=== PATIENT | male | born 1995 | race Caucasian/White ===

== ENCOUNTER 2023-12-18 15:31 | Outpatient (CLI) | payer OTHER, SELFPAY | END 2023-12-18 15:32 | disposition home or self-care (01) | LOC: AMB 12-23 17:40 | PROVIDERS: Visit Provider Emergency Medicine | DX: E11.649 Type 2 diabetes mellitus with hypoglycemia without coma (principal) | CPT/HCPCS: A0998 ==

== ENCOUNTER 2024-03-05 20:37 | Outpatient (CLI) | payer OTHER, SELFPAY | END 2024-03-05 20:38 | disposition home or self-care (01) | LOC: AMB 03-12 10:15 | PROVIDERS: Visit Provider Family Medicine | DX: E11.649 Type 2 diabetes mellitus with hypoglycemia without coma (principal); R51.9 Headache, unspecified | CPT/HCPCS: A0998 ==

== ENCOUNTER 2024-10-12 11:34 | Inpatient (IN) | payer OTHER, SELFPAY ==
[2024-10-12] VITALS (16 sets, daily range): BP systolic 122–179; BP diastolic 56–105; PULSE 95–109; RESP 15–32; TEMP 36.4–36.7; O2SAT 89–95; BMI 59.5; BMI 62.7
--- NOTE | 2024-10-12 11:56 | ED_ITS ---
HPI - General Adult General Time Seen by Provider: 11:56 Date Seen: 10/12/24 Chief complaint: Shortness of Breath/Dyspnea Stated complaint: Pneumonia, short of breath Time Seen by Provider: 10/12/24 11:55 Source: patient and RN notes reviewed Mode of arrival: ambulatory Limitations: no limitations History of Present Illness HPI narrative: This 29-year-old male is coming into the ER with low blood sugar measuring on his Dexcom for the last couple hours despite eating and drinking at home. He has been sick now starting the day before . He has been coughing, feels like he has been having difficulty breathing with wheezing. He has felt tight. He took 40 mg of prednisone on day and yesterday, had leftover prednisone at home from his underlying asthma and prior treatments. He has been exposed to relatives that have subsequently tested positive for pertussis. He has not documented a temperature but has felt hot at times. He does feel jittery and low but is alert and interactive. He has continued to drink juice in triage with nursing staff. His Dexcom is continuing to measure low through this and while I am talking to him. His insulin pump automatically adjusts with his Dexcom, will turn off and adjust his basal insulin based on his glucose. He does note that his pulse oximeter that he has on an tiffany was 88% earlier today. Related Data Home Medications ?Medication ?Instructions ?Recorded ?Confirmed albuterol sulfate 90 mcg/actuation 2 puff inhalation Q4H PRN wheezing 10/12/24 10/12/24 aerosol inhaler (Ventolin HFA) glucagon 1 mg/0.2 mL subcutaneous 1 mg subcut DAILY PRN 10/12/24 10/12/24 auto-injector (Gvoke HypoPen 1-Pack) insulin lispro 200 unit/mL (3 mL) 0 - 200 unit subcut DAILY 10/12/24 10/12/24 subcutaneous pen (Humalog KwikPen U-200 Insulin) lisdexamfetamine 40 mg capsule 40 mg PO QAM 10/12/24 10/12/24 Allergies Allergy/AdvReac Type Severity Reaction Status Date / Time Penicillins Allergy Severe Anaphylaxis Verified 10/12/24 15:27 metformin Allergy Intermediate Vomiting Verified 10/12/24 15:27 mri contrast Allergy Severe Anaphylaxis Uncoded 10/12/24 15:27 Review of Systems Status of ROS: Reports: 6 or more systems reviewed and unremarkable except as noted in History and below [facility] Medical History (Updated 10/12/24 @ 15:28 by Jayson Muñoz MD) Gastroparesis ?K31.84 - Gastroparesis (ICD-10) Attention deficit disorder ?F98.8 - Other specified behavioral and emotional disorders with onset usuall y occurring in childhood and adolescence (ICD-10) Morbid obesity ?E66.01 - Morbid (severe) obesity due to excess calories (ICD-10) Pneumonia due to respiratory syncytial virus (RSV) ?J12.1 - Respiratory syncytial virus pneumonia (ICD-10) Type 1 diabetes mellitus ?E10.9 - Type 1 diabetes mellitus without complications (ICD-10) Surgical History (Updated 10/12/24 @ 15:17 by Jayson Muñoz MD) H/O ventral hernia repair ?Z98.890 - Other specified postprocedural states (ICD-10) ?Z87.19 - Personal history of other diseases of the digestive system (ICD-10) History of unilateral orchiectomy ?Z90.79 - Acquired absence of other genital organ(s) (ICD-10) History of esophagogastroduodenoscopy (EGD) ?Z98.890 - Other specified postprocedural states (ICD-10) History of laparoscopic appendectomy ?Z90.49 - Acquired absence of other specified parts of digestive tract (ICD- 10) Family History (Updated 10/12/24 @ 15:19 by Jayson Muñoz MD) Mother Asthma Sister Depression Father Coronary artery disease Social History (Updated 10/12/24 @ 15:20 by Jayson Muñoz MD) Narrative: He lives with his mother. He works at [employer]. He vapes nicotine. He occasionally smokes cannabis. He does not drink alcohol. What is your current living situation?: I presently have a place to live Problems where you live: no known problems Problems where you live details: NA In the past 12 months, utilities in danger of being shut off: no In past 12 months, lack of transportation kept you from medical appts, meetings, work, or getting things needed for daily living: no In the past 12 mos, have been you worried that your food would run out before you had money to buy more?: never true In the past 12 mos, the food you bought just didn't last and you didn't have money to buy more?: never true Highest level of school completed/degree received: Associate degree: occupational, technical, vocational program Smoking Status: Current every day smoker Do you use any of these nicotine containing products: Vaping Products How often do you have a drink containing alcohol: never AUDIT-C Alcohol total score: 0 Non-prescribed substance use: marijuana (any form) Non-prescribed substance use details: On occasion Caffeine: Yes How often does anyone, including family, friends and others, physically hurt you : never How often does anyone, including family, friends and others, insult or talk down to you: never How often does anyone, including family, friends and others, threaten you with harm: never How often does anyone, including family, friends and others, scream or curse at you: never service: No Exam Const: Vital Signs, click to edit/add: Vital Signs - 24 hr 10/12/24 11:50 10/12/24 12:01 10/12/24 12:11 Temperature 98.1 F Pulse Rate 105 H Pulse Rate [Pulse Oximeter] 100 Respiratory Rate 28 H Blood Pressure Blood Pressure [Le ft Forearm] 179/105 H Pulse Oximetry 93 90 89 Oxygen Delivery Me thod Room Air 10/12/24 12:14 10/12/24 12:21 10/12/24 12:41 Temperature Pulse Rate 101 H 102 H 106 H Pulse Rate [Pulse Oximeter] Respiratory Rate 28 H 22 Blood Pressure 138/83 132/79 123/75 Blood Pressure [Le ft Forearm] Pulse Oximetry 92 93 92 Oxygen Delivery Me thod 10/12/24 13:01 10/12/24 13:21 10/12/24 13:30 Temperature Pulse Rate 97 101 H Pulse Rate [Pulse Oximeter] Respiratory Rate 15 32 H 21 Blood Pressure 125/88 141/82 H Blood Pressure [Le ft Forearm] Pulse Oximetry 93 95 Oxygen Delivery Me thod This 29-year-old male is alert, interactive, no apparent distress. Sitting upright, conversive. Pupils equal round reactive, sclera clear. Symmetrical facial function. Neck thick but supple. Lungs with no crackles, no wheezing but prolonged expiratory phase and diminished breath sounds. He is not tachypneic. CV regular rate and rhythm, no murmur, normal S1-S2, no S3-S4 heard. Abdomen is obese but soft, nontender, nondistended. Skin visualized without rash. His skin is warm and dry. Documenting provider has reviewed patient's vital signs: yes Course Course ED Course: Interestingly this patient is having hypoglycemia despite 40 mg of prednisone yesterday and the day before. He does have probable underlying upper respiratory infection which could be viral, pertusses or other etiologies such is community-acquired pneumonia. We are going to give him 25 g of IV push glucose with D 50. Will continue to monitor with his Dexcom. Do need to consider malfunction of his insulin pump if he continues to have low registration despite treatment. Will get baseline labs. Will do triple viral swab and also do pertussis PCR. Reevaluation(s) Time of Reevaluation #1: 12:43 Reevaluation #1: Nursing staff reports that patient's Accu-Chek went from 10/19 about 15 minutes is go on his Dexcom and is now down to 45. They have made sure his insulin pump is indeed off. We will initiate D5 normal saline at 75 mL an hour and titrate for Accu-Chek. Time of Reevaluation #2: 13:06 Reevaluation #2: Patient is Dexcom is registering critically low again, sugar is not registering. We do not have D5 normal saline. Will give him another amp of D50, start D10 at 75 mL/hour. I do see patient has come back RSV positive. Consultations Consultation #1: Did speak with hospitalist Dr. Bo. She does accept care of this patient. Will update patient on plan. Time: 13:27 Vital Signs Vital signs: Initial Vital Signs Temperature 98.1 F 10/12/24 11:50 Temperature Source Oral 10/12/24 11:50 Pulse Rate 100 10/12/24 11:50 Respiratory Rate 28 H 10/12/24 11:50 Blood Pressure 179/105 H 10/12/24 11:50 Blood Pressure Mean 129 H 10/12/24 11:50 Blood Pressure Position Sitting 10/12/24 11:50 Pulse Oximetry 93 10/12/24 11:50 Oxygen Delivery Method Room Air 10/12/24 11:50 Vital Signs Temperature 98.1 F 10/12/24 11:50 Pulse Rate 100 10/12/24 11:50 Respiratory Rate 28 H 10/12/24 11:50 Blood Pressure 179/105 H 10/12/24 11:50 Pulse Oximetry 93 10/12/24 11:50 Oxygen Delivery Method Room Air 10/12/24 11:50 Temperature 97.8 F 10/12/24 14:32 Pulse Rate 109 H 10/12/24 14:32 Respiratory Rate 26 H 10/12/24 15:00 Blood Pressure 129/61 10/12/24 14:32 Pulse Oximetry 93 10/12/24 15:00 Oxygen Delivery Method Room Air 10/12/24 15:00 Medications Administered Medications: Generic Name Dose Route Start Last Admin Trade Name Freq PRN Reason Stop Dose Admin Dextrose 500 mls @ 75 mls/hr 10/12/24 13:15 10/12/24 13:27 10 % Dextrose 500 Ml IV 75 mls/hr .[id number] MELINDA Administration Per Protocol Miscellaneous Medication 1 each 10/12/24 15:00 10/12/24 15:57 Insulin Pump (Pt Own) SUBCUT Not Given Q24H MELINDA Discontinued Medications Generic Name Dose Route Start Last Admin Trade Name Freq PRN Reason Stop Dose Admin Dextrose 25 gm 10/12/24 12:01 10/12/24 12:08 Dextrose 50 % Syringe IVP 10/12/24 12:02 25 gm ONCE ONE Administration Dextrose 25 gm 10/12/24 13:04 10/12/24 13:11 Dextrose 50 % Syringe IVP 10/12/24 13:05 25 gm ONCE ONE Administration Potassium Bicarbonate 50 meq 10/12/24 15:30 10/12/24 16:00 Potassium Bicarb 25 Meq Effervescent Tab PO 10/12/24 15:31 50 meq ONCE ONE Administration Medical Decision Making Lab Data Lab results reviewed: Yes I reviewed the patient's lab results Labs: Lab Results 10/12/24 Range/Units 11:53 WBC 11.30 H (4.50-11.00) K/uL RBC 5.71 (4.30-5.90) m/uL Hgb 14.6 (13.5-17.5) gm/dL Hct 48.2 (37.0-53.0) % MCV 84 (80-100) fL MCH 26 (26-34) pg MCHC 30 L (32-36) gm/dL RDW Coeff of Andre 15.1 (11.5-15.5) % Plt Count 360 (140-440) K/uL Neut % (Auto) 58.0 (42.0-72.0) % Lymph % (Auto) 28.5 (20-44) % [place] % (Auto) 11.6 H (0.0-11.0) % Eos % (Auto) 1.2 (0.0-7.0) % Baso % (Auto) 0.4 (0.0-3.0) % Neut # (Auto) 6.60 (1.7-7.0) K/uL Lymph # (Auto) 3.20 H (0.90-2.90) K/uL [place] # (Auto) 1.30 H (0.00-0.90) K/UL Eos # (Auto) 0.10 (0.00-0.50) K/uL Baso # (Auto) 0.00 (0.00-0.30) K/uL Abs Immat Gran (auto) 0.00 (0.00-0.30) K/uL Imm/Tot Granulo (auto) 0.3 % VBG pH 7.387 (7.32-7.43) VBG pCO2 51 H (40-50) mmHG VBG pO2 43.3 (25-47) mmHG VBG HCO3 31 H (21-28) mmol/L Sodium 141 (135-149) mmol/L Potassium 3.1 L (3.6-5.1) mmol/L Chloride 101 (96-114) mmol/L Carbon Dioxide 30 (20-32) mmol/L Anion Gap 10 (7-15) mEq/L BUN 16 (5-24) mg/dL Creatinine 0.7 (0.5-1.5) mg/dL Estimated Creat Clear 146.89 Estimated GFR 129 ml/min Glucose 25 L* (60-115) mg/dL Lactate 2.3 H (0.5-1.9) mmol/L Calcium 9.0 (8.4-10.6) mg/dL Total Bilirubin 0.5 (0.1-1.5) mg/dL AST 25 (12-35) U/L ALT 30 (4-50) U/L Alkaline Phosphatase 84 (40-150) U/L C-Reactive Protein 1.7 H (0.5-1.0) mg/dL Total Protein 8.0 (6.0-8.3) g/dL Albumin 4.4 (3.3-5.0) g/dL SARS-CoV-2 (PCR) Negative SARS-CoV-2 (Negative) Influenza Type A (PCR) Negative PCR FLU A (Negative) Influenza Type B (PCR) Negative PCR FLU B (Negative) RSV (PCR) POSITIVE PCR RSV A (Negative) Imaging Data Chest x-ray: Attestation: I have reviewed the pertinent imaging results. My impression: I do not see any acute pathology on my preliminary review of the portable chest x-ray. Radiologist's impression: [facility] Patient ID:?[id number] Site Patient ID:?[id number]. Site :?[id number] Study:?XRay-Chest 1V-10/12/2024 12:38:04 PM Ordering Physician:Hermilo Mcwilliams Final Report: Indication: Cough Technique: Chest 1 view Comparison: None Findings/Impression: Cardiovascular and mediastinum: Heart size and vasculature are normal in caliber and appearance. Lungs and pleural space: No pleural effusion or pneumothorax. Bronchial wall thickening with some interstitial indistinctness surrounding the bronchi suspicious for a viral/interstitial pneumonia. Bones and soft tissues: No acute findings. Dictated by Yaw Arvizu MD @ 10/12/2024 12:55:37 PM (Electronic Signature) Critical Care Time Critical Care Time Critical Care Time: Yes Attestation: The patient required my highest level preparedness to intervene emergently and I personally spent this critical care time directly and personally managing the patient. This critical care time included: Obtaining a history; Examining the patient; Pulse oximetry; Ordering and reviewing of studies; Arranging urgent treatment with development of a management plan; Evaluation of patients response to treatment; Frequent reassessment discussions with other providers. This critical care time was performed to assess and manage the high probability of imminent life-threatening deterioration that could result in multiorgan failure. It was exclusive of separate billable procedures and treating other patients and teaching time. Total Critical Care Time in Minutes: 45 Discharge Plan Discharge Clinical Impression: Diabetes mellitus with hypoglycemia Respiratory syncytial virus (RSV) infection Qualifiers: RSV infection type: acute bronchiolitis Qualified Code(s): J21.0 - Acute bronchiolitis due to respiratory syncytial virus Asthma Qualifiers: Asthma severity: unspecified severity Asthma persistence: unspecified Asthma complication type: unspecified Qualified Code(s): J45.909 - Unspecified asthma, uncomplicated Patient Disposition: Admitted As Observation
--- NOTE | 2024-10-12 12:01 | CRLHL7_ITS ---
For Patients: As a result of the Century Cures Act, medical imaging exams and procedure reports are released immediately into your electronic medical record. You may view this report before your referring provider. If you have questions, please contact your health care provider. Indication: Cough Technique: Chest 1 view Comparison: None Findings/Impression: Cardiovascular and mediastinum: Heart size and vasculature are normal in caliber and appearance. Lungs and pleural space: No pleural effusion or pneumothorax. Bronchial wall thickening with some interstitial indistinctness surrounding the bronchi suspicious for a viral/interstitial pneumonia. Bones and soft tissues: No acute findings. Dictated by Yaw Arvizu MD @ 10/12/2024 12:55:37 PM (Electronically Signed)
[2024-10-12] MEDS: DEXTROSE 50 % SYRINGE IVP ×2 (12:08→13:11)
[2024-10-12 12:15] LABS: HCO3 VBG 31 mmol/L (21-28); PCO2 VBG 51 mmHG (40-50); PO2 VBG 43.3 mmHG (25-47); pH VBG 7.387 (7.32-7.43)
[2024-10-12 12:17] LABS: Lactate* 2.3 mmol/L (0.5-1.9)
[2024-10-12 12:20] LABS: Basophils Percent Auto 0.4 % (0.0-3.0); Eosinophils Percent Auto 1.2 % (0.0-7.0); Hematocrit 48.2 % (37.0-53.0); Hemoglobin* 14.6 gm/dL (13.5-17.5); Immature Granulocytes Pct Auto 0.3 %; Lymphocytes Percent Auto 28.5 % (20-44); Mean Corpuscular HGB Conc 30 gm/dL (32-36); Mean Corpuscular Hemoglobin 26 pg (26-34); Mean Corpuscular Volume 84 fL (80-100); Monocytes Percent Auto 11.6 % (0.0-11.0); Platelet Count* 360 K/uL (140-440); RDW Coefficient of Variation % 15.1 % (11.5-15.5); Red Blood Count 5.71 m/uL (4.30-5.90)
[2024-10-12 12:29] LABS: Albumin* 4.4 g/dL (3.3-5.0); Chloride* 101 mmol/L (96-114)
[2024-10-12 12:30] LABS: Potassium* 3.1 mmol/L (3.6-5.1); Sodium* 141 mmol/L (135-149)
[2024-10-12 12:32] LABS: Bilirubin Total* 0.5 mg/dL (0.1-1.5); Creatinine* 0.7 mg/dL (0.5-1.5); Est. Creatinine Clearance* 146.89; Estimated Glomerular Filt Rate 129 ml/min
[2024-10-12 12:33] LABS: Alanine Aminotransferase* 30 U/L (4-50); Alkaline Phosphatase* 84 U/L (40-150); Anion Gap 10 mEq/L (7-15); Aspartate Amino Transferase* 25 U/L (12-35); Blood Urea Nitrogen* 16 mg/dL (5-24); Carbon Dioxide* 30 mmol/L (20-32)
--- OUTSIDE RECORDS SUMMARY | 2024-10-12 12:33 | XMS_ITS | Clinical Summary ---
Author Organization [facility] Address [place], [place] [address] Care Team Providers Care Mobile Product Manager Name Role Phone Chance Saxena MD Primary Care Provider SchempfRom MD Unavailable [phone] Allergies Active Allergy Reactions Criticality Noted Date Comments Iodinated Contrast Media Anaphylaxis,Hives,S hortness Of Breath High 09/21/2021 Metformin GI Upset 01/03/2017 Diarrhea and abdominal pain Penicillin G Hives 07/31/2011 Diabetic ketoacidosis Penicillins Hives 03/27/2010 Medications Cetirizine (ZYRTEC) 10 mg Cap Take by mouth. 0 03/27/20 10 Active albuterol (PROVENTIL) 0.083 % neb solutionIndicatio ns:Exacerbation of asthma, unspecified asthma severity, unspecified whether persistent 3 mL every 4 hours if needed. 60 Neb 11 09/05/20 17 Active empty container (SHARPS CONTAINER) miscIndications:D iabetes mellitus type 1, controlled, without complications (HC) As directed 1 Each each time if needed (discarding sharps). 1 Container 3 08/11/20 20 Active alcohol swabsIndications: Diabetes mellitus type 1, controlled, without complications (HC) For home use. 100 Each 6 08/11/20 20 Active Accu-Chek Guide Glucose Meter USE TO CHECK GLUCOSE 4 TIMES DAILY 08/12/20 20 Active lancetsIndication s:Diabetes mellitus type 1, controlled, without complications (HC) Dispense item covered by pt ins. E10.65 IDDM type I, uncontrolled - Test 4 times/day. Reason: Insulin Pump 100 Each 6 03/27/20 Active acetone, urine, test stripIndications: Diabetes mellitus type 1, controlled, without complications (HC) Individually wrapped ketone test strips. For personal use. 1 Bottle 3 03/27/20 Active Transparent Dressings (Tegaderm First Aid Style) 2 12/15 X 2 12/11 bndgIndications:D iabetes mellitus type 1, controlled, without complications (HC) Apply topically to affected area(s). For use with insulin pump infusion set. 30 Each 3 07/08/20 Active blood-glucose meterIndications: Diabetes mellitus type 1, controlled, without complications (HC) Test blood sugar as directed 1 Each 08/03/20 Active lancetsIndication s:Diabetes mellitus type 1, controlled, without complications (HC) Use to test blood sugar as directed 100 Each 3 08/03/20 Active blood sugar diagnostic (Blood Glucose Test) stripIndications: Diabetes mellitus type 1, controlled, without complications (HC) Test blood sugar 4 times daily 100 Each 3 08/03/20 Active insulin pump controller [facility] Insulin Pump: avoxtronic 670G Insulin pump settings: Basal rates: 9939-0617 @ 4.45 units/hr 4296-3076 @ 5.50 units/hr 0474-8500 @ 5 units/hr Wqkjcxd-ni-svmo ratio: 5525-0340 of 1:5 0673-9180 of 1:8 9393-4322 of 1:5 9789-2068 of 1:7 Insulin Sensitivity Factor: 1:15> 140 Blood glucose targets: All day targets of 80-140 Active insulin time: 3 hours Active NebulizerIndicati ons:Asthma, unspecified asthma severity, unspecified whether complicated, unspecified whether persistent Nebulizer, disposable neb kit x 4, reuseable neb kit x 1, mask x 1, filters x 1. Frequency of use: daily; Medication: duoneb Length of need: 99 months 1 Each 02/15/20 22 Active hydrOXYzine HCL (ATARAX) 50 mg tabletIndications :Anxiety TAKE 1 TABLET BY MOUTH EVERY 6 HOURS NEEDED FOR ANXIETY 90 Tablet 10/03/20 23 Active Dexcom G7 Sensor for continuous blood glucose monitor (CGM)Indications: Diabetes mellitus type 1, controlled, without complications (HC) To be used to read blood sugars, follow replacer directions. 9 Each 3 10/14/19 24 Active Gum Jklpht-Vbezvl-CJk l-Alcohol (Mastisol Liquid Adhesive) liqdIndications:D iabetes mellitus type 1, controlled, without complications (HC) As directed. 59 mL 1 10/14/19 24 Active glucagon (Gvoke HypoPen 1-Pack) 1 mg/0.2 mL atInIndications:D iabetes mellitus type 1, controlled, without complications (HC) Inject 1 mg subcutaneous each time if needed (For severe hypoglycemic event where patient cannot eat or drink). Household family members should be instructed on how to use this 2 Each 3 02/07/20 24 Active Semglee,insulin glarg-yfgn,Pen 100 unit/mL (3 mL) penIndications:Ty pe 1 diabetes mellitus with diabetic neuropathy (HC) Inject 90 units subcutaneous every 24 hours. For pump failure 30 mL 1 04/16/20 24 Active insulin lispro, U-200, (HumaLOG KwikPen Insulin) 200 unit/mL (3 mL) penIndications:Ty pe 1 diabetes mellitus with diabetic neuropathy (HC) Inject up to 200 units daily 60 mL 5 04/16/20 24 Active albuterol HFA (PRO-AIR; VENTOLIN; PROVENTIL) 90 mcg/actuation inhalerIndication s:Exacerbation of asthma, unspecified asthma severity, unspecified whether persistent Inhale 2 Puffs by mouth every 4 hours if needed for Wheezing. Ventolin only 1 Each 11 06/05/20 24 Active lisdexamfetamine (VYVANSE) 40 mg capsuleIndication s:Attention deficit disorder Take 1 Capsule (40 mg) by mouth once daily. 30 Capsule 11/10/19 25 Active lisdexamfetamine (Vyvanse) 40 mg capsuleIndication s:Attention or concentration deficit Take 1 Capsule (40 mg) by mouth once daily in the morning. 31 Capsule 10/10/19 25 Active lisdexamfetamine (Vyvanse) 40 mg capsuleIndication s:Attention or concentration deficit Take 1 Capsule (40 mg) by mouth once daily in the morning. 31 Capsule 09/10/20 24 Active Active Problems Problem Noted Date Diagnosed Date Gastroparesis 10/07/2021 Attention deficit disorder (ADD) without hyperac tivity 06/02/2021 Morbid obesity with BMI of 45.0-49.9, adult 12/09 Environmental allergies 03/15/2016 Celiac disease 03/15/2016 Uncomplicated asthma 03/15/2016 insomnia 03/14/2016 Type 1 diabetes mellitus with diabetic neuropath y 03/14/2016 depression 03/14/2016 Resolved Problems Problem Noted Date Diagnosed Date Resolved Date Severe persistent asthma with exacerbation 11/19/2022 05/31/2023 Diabetic ketoacidosis withou t coma associated with type 1 diabetes mellitus 02/05/2022 05/31/2023 Severe episode of recurrent major depressive disorder, with psychotic features 10/07/20212021 Encounters Date Type Department Care Team Description 09/09/2024 Refill [facility] [address] [place] [address] Chance Saxena MD Refill Request (Vyvanse/) from Last 3 Months Immunizations Name Administration Dates Next Due COVID-19 vaccine (Moderna 100mcg/0.5mL) HENRIQUE TOPETE 09/15/2021,02/19/2021,01/20/2021 HPV 9 (Gardasil 9) 03/30/2018,08/10/2017, 017 Hepatitis A (Peds) 12/28/2007,02/28/2007 Inactivated Polio Vaccine 06/14/2001 Influenza, IIV4 10/07/2021, 9,08/10/2017,10/06 MENINGOCOCCAL VACCINE 2 VIAL 2MO-55YO (MENVEO) 11/16/2016 MMR 11/16/2016,06/14/2001 Pneumococcal Poly,23-Valent (Pneumovax) 03/30/2018 Pneumococcal conj 13-Valent (Prevnar 13) 10/21/2021 Pneumococcal conj 7-Valent (Prevnar 7) 0 Tdap 03/26/2009 Varicella Vaccine 03/26/2009,06/22/2000 Family History Medical History Relation Name Comments Depression Father Heart attack Father x 2 Suicidality Father early 50s Alcoholism Maternal Grandfather Cancer Maternal Grandfather kidney, bladder, prostate, liver Depression Maternal Grandfather Other Maternal Grandmother colitis , hypotension Asthma Mother Cancer Mother cervical Heart Disease Paternal Grandfather Depression Sister x 2 Relation Name Status Comments Father Maternal Grandfather Maternal Grandmother Mother Alive Paternal Grandfather Paternal Grandmother Alive Sister x 2 Alive Social History Tobacco Use Types Packs/Day Years Used Date Smoking Tobacco: Former Cigarettes 0.5 3 Passive Smoke Exposure: Past Smokeless Tobacco: Never Tobacco Cessation:Counseling Given: No Alcohol Use Standard Drinks/Week Comments Not Currently 0 (1 standard drink = 0.6 oz pur e alcohol) PHQ-2 Answer Date Recorded PHQ-2 TOTAL SCORE 0 08/16/2023 Social Connections Answer Date Recorded Frequency of Communication with Friends and Fami ly Not on file 03/24/2023 Financial Resource Strain Answer Date R ecorded Difficulty of Paying Living Expenses 3 03/22/2022 Difficulty of Paying Living Expenses Not on file 03/22/2022 Food Insecurity Answer Date Recorded Worried About Running Out of Food in the Last Ye ar 1 03/22/2022 Transportation Needs Answer Date Record ed Lack of Transportation (Medical) 1 03/22/2022 Housing Stability Answer Date Recorded Unable to Pay for Housing in the Last Year 1 03/22/2022 Sex and Gender Information Value Date Recorded Sex Assigned at Not on file Legal Sex Male 7:55 AM DIRECTOR OF INTELLIGENCE Gender Identity Male 08/11/2020 2:27 PM DIRECTOR OF INTELLIGENCE Sexual Orientation Bisexual 08/11/2020 2: 27 PM DIRECTOR OF INTELLIGENCE 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 Not on file Not on file Obstetrics History Last Filed Vital Signs Vital Sign Reading Time Taken Comments Blood Pressure 128/88 04/16/2024 8:01 AM CDT Pulse 100 04/16/2024 8:01 AM CDT Temperature 36.8 C (98.2 F) 09/09/2023 5:13 PM DIRECTOR OF INTELLIGENCE Respiratory Rate 20 09/09/2023 6:30 PM DIRECTOR OF INTELLIGENCE Oxygen Saturation 94% 09/09/2023 6:30 PM DIRECTOR OF INTELLIGENCE Inhaled Oxygen Concentration - - Weight 183.4 kg (404 lb 6.4 oz) 04/16/2024 8:01 AM CDT Height 170.2 cm (5' 7) 09/09/2023 10:4 1 AM DIRECTOR OF INTELLIGENCE Body Mass Index 63.34 09/09/2023 10:41 AM DIRECTOR OF INTELLIGENCE Plan of Treatment Upcoming Encounters Date Type Department Care Team (Late st Contact Info) Description 11/01/2024 8:00 AM DIRECTOR OF INTELLIGENCE Office Visit [facility] [address] [place] [address] Rom Sommers MD [address] [place] [id number] Health Maintenance Due Date Last Done Comments HIV for age 15-65 2011 Hepatitis C screening for ag e 18-79 2014 Hepatitis B series for Diabe hillary (1 of 3 - 19+ 3-dose series) 2015 Tetanus booster 03/26/2019 03/26/2009 COVID-19 vaccine series ( season) 2024 09/15/2021, 02/19/2021, 01/20/2021 Influenza for age 9-49 06/10/2024 , 2019, 08/10/2017, Additional history exists Depression screening for age 12+ 08/18/2024 08/18/2023, 08/18/2023, 08/16/2023, Additional history exists BMI (ht and wt on same day) for age 18+ 08/30/2024 08/30/2023, 08/18/2023, 05/25/2023, Additional history exists Pneumococcal series for age 6-49 (3 of 3 - PCV20 or PCV21) 2046 10/21/2021, 03/30/2018, 06/22/2000 Tdap Completed 03/26/2009 Medical Devices Implanted Type Area Scrub Tech Device Identifier Shelf Expiration Date Model / Serial / Lot Mesh Ventral [address]in [address] - [id number] Implanted:Qty: 1 on 09/09/2023 by Duran Triana MD at [facility] N/A: Abdomen [employer] 03/06/2025 [id number] / / [id number] Insurance [facility] Advance Directives * Full Code (Latest Code Status on File) Date Activated Date Inactivated Comments 09/09/2023 9:59 AM 09/09/2023 8:35 PM Question Answer Comments Code Status Discussion: Reviewed Preferences * Full Code Date Activated Date Inactivated Comments 10/15/2021 9:45 AM 10/15/2021 2:13 PM Question Answer Comments Code Status Discussion: Unable to Assess Preferences, Provider to review later * Full Code Date Activated Date Inactivated Comments 10/15/2021 9:45 AM 10/15/2021 9:45 AM Question Answer Comments Code Status Discussion: Unable to Assess Preferences, Provider to review later Care Teams Mobile Product Manager Relationship Specialty [place] [address] [place] [address] PCP - General Family Practice 03/22/22 Rom Sommers MD [address] [facility] [address] [place] [address] Endocrinology 02/06/24
--- OUTSIDE RECORDS SUMMARY | 2024-10-12 12:33 | XMS_ITS | Clinical Summary ---
Author Organization [employer] Address [address], [place] [address] Care Team Providers Care Bat Person Name Role Phone Yung Rodriguez MD Primary Care Provider [phone] Source Comments You are receiving this document as you are listed as the primary care provider,follow-up provider, or the patient has been referred to you for consultation.This is in compliance with the Medicare andWhite Hospitalcaid EHR Incentive Program,which states Providers who transition their patient to another setting of careor provider of care or refers their patient to another provider of care shouldprovide summary care record for each transition of care or referral. Press-sense Allergies Active Allergy Reactions Criticality Noted Date Comments Metformin Gastrointestinal 01/03/2017 Diarrhea and abdominal pain Penicillins Hives,Other, see comments High 6 PN: Reporting medication caused DKA, states was placed in hospital for week and a 1/2. Medications Medication Sig Dispensed Refills Start Date End Date Status buPROPion (AKA WELLBUTRIN XL) 300 MG 24 hour release tablet Take 300 mg by mouth daily. Active ibuprofen (AKA MOTRIN) 600 MG tablet Take 1 Tab by mouth every 6 hours as needed for Pain. 30 Tab 0 08/19/2014 Active Additional Information Patient not taking.Reported on 03/29/2018 blood glucose test strip Use 1 strip to test 4 times daily (before meals and bedtime). 400 strip 4 05/20/2016 Active glucagon, human recombinant, (GLUCAGON,HUMAN RECOMBINANT) 1 MG injection Inject 1 mg subcutaneously once for 1 dose. 1 each 11 05/20/2016 Active ALBUTEROL IN Active insulin glargine (LANTUS SOLOSTAR) 100 UNIT/ML penIndications:Diabe hillary Mellitus Inject 90 Units subcutaneously daily. For pump failure Indications: Diabetes Mellitus 15 mL 6 03/29/2018 Active insulin pen needle (BD PEN NEEDLE BLAS U/F) 32G X 4 MMIndications:Type 1 diabetes mellitus with diabetic polyneuropathy (HRC) Inject 1 Each subcutaneously as needed. 100 Each 03/29/2018 Active insulin syringe-needle U-100 1ml 31g x 15/64Indications:Ty pe 1 diabetes mellitus with diabetic polyneuropathy (HRC) Inject 1 Each subcutaneously five times a day. 200 Each 4 03/29/2018 Active insulin aspart (NOVOLOG) 100 UNIT/ML injection (vial) Total daily dose 250 unitsVia insulin pump. 5 u/ carb overnight, 7 u/ carb during day, plus correction 2 u/ 50 > 150 250 mL 4 04/05/2018 Active insulin aspart (NOVOLOG) 100 UNIT/ML injection (vial)Indications:Di abetes Mellitus 5-7 units/carb meals and snacks plus scale up to 100 units daily when off insulin pump. Indications: Diabetes Mellitus 30 mL 04/05/2018 Active Active Problems Problem Noted Date Diagnosed Date Type 1 diabetes mellitus with diabetic polyneuro barry 05/20/2016 Insulin pump status 05/20/2016 Celiac disease 05/20/2016 Elevated BP 05/20/2016 Morbid obesity 05/20/2016 Social History Tobacco Use Types Packs/Day Years Used Date Smoking Tobacco: Former Smokeless Tobacco: Former Quit: 06/14/2016 Alcohol Use Standard Drinks/Week Comments No 0 (1 standard drink = 0.6 oz pur e alcohol) Sex and Gender Information Value Date Recorded Sex Assigned at Not on file Gender Identity Not on file Sexual Orientation Not on file Last Filed Vital Signs Vital Sign Reading Time Taken Comments Blood Pressure 126/86 03/29/2018 9:32 AM CDT Pulse 76 03/29/2018 9:32 AM CDT Temperature 36.7 C (98 F) 08/19/2014 4:40 PM PRESS OFFICER Respiratory Rate 16 08/19/2014 4:40 PM PRESS OFFICER Oxygen Saturation 98% 11/09/2016 3:05 PM PRESS OFFICER Inhaled Oxygen Concentration - - Weight 129.7 kg (286 lb) 03/29/2018 9:32 AM CDT Height 170.2 cm (5' 7) 03/29/2018 9:32 AM CDT Body Mass Index 44.79 03/29/2018 9:32 AM CDT Plan of Treatment Health Maintenance Due Date Last Done Comments Diabetes: Eye Exam 1996 Hep C Screening (Preventive Services) 1996 IPV (Polio) (2 of 3 - 4-dose series) 07/12/2001 06/14/2001 HIV Screening (Preventive Services) 2012 Adult Preventive Visit 2014 HepB (1) 2015 Diabetes: Foot Exam 05/20/2017 05/20/2016 (Completed ) Diabetes: HGBA1C 09/28/2018 03/29/2018, , 05/20/2016 DTaP/Tdap/Td (3 - Tdap) 03/26/2019 03/26/2009, 06/14 Diabetes: Creatinine 03/29/2019 03/29/2018, 05/20/20 16 Diabetes: Urine Microalbumin 03/29/2019 03/29/2018, 05/20/2016 Pneumococcal (2 - PCV) 03/30/2019 03/30/2018, 1999 Diabetes: Lipid Panel 03/29/2023 03/29/2018, 016 COVID-19 Vaccine ( season) 2024 01/20/2021 Influenza (#1) 2024 2019, 10/2016, 10/06/2016, Additional history exists Zoster/Shingles (1 of 2) 2046 HepA Completed 12/28/2007, 02/28/2007 MCV4 Aged Out 11/16/2016, 03/26/2009 No lo nger eligible based on patient's age to complete this topic HPV Vaccine Completed 03/30/2018, 10/2016, 11/16/2016 Hib Aged Out No longer eligi ble based on patient's age to complete this topic Procedures Procedure Name Priority Date/Time Associated Diagnosis Comments ALBUMIN/CREAT RATIO Routine 03/29/2018 1 1:01 AM CDT Type 1 diabetes mellitus with diabetic polyneuropathy (HRC) CREATININE / GFR Routine 03/29/2018 10:3 1 AM CDT Type 1 diabetes mellitus with diabetic polyneuropathy (HRC) LIPID PANEL & DIRECT LDL (IF NEEDED) Routine 03/29/2018 10:31 AM CDT Type 1 diabetes mellitus with diabetic polyneuropathy (HRC) POCT GLYCOSYLATED HEMOGLOBIN (HGB A1C) Routine 03/29/2018 9:47 AM CDT Type 1 diabetes mellitus with diabetic polyneuropathy (HRC) from Last 3 Months or Most Recently Relevant to Health Maintenance Results * Microalb/Creat Ratio (03/29/2018 11:01 AM CDT) Microalbumin Urine 16.1 mg/L PN SOFT U Creat Random 236 mg/dL PN SOFT Microalbumin/Crea tinine Ratio 6.8 0.0 - 30.0 PN SOFT Urine specimen (specimen) 03/29/2018 11:01 AM CDT 03/29/2018 11:01 AM CDT Narrative PN SOFT - 03/29/2018 11:43 AM CDT Performed at [facility], [address] [place] [address] CLIA number [id number] Brii Nguyen PA-C LAB_1 PN SOFT [address] [place] [address] * (ABNORMAL) Lipid Panel and Direct LDL(If Needed) (03/29/2018 10:31 AM CDT) Cholesterol 139 0 - 199 mg/dL PN SOFT Triglycerides 68 4 - 149 mg/dL PN SOFT HDL Cholesterol 29(L) >39 mg/dL PN SOFT Cholesterol/HDL Ratio Screen 4.8 PN SOFT LDL Calculated 96 19 - 130 mg/dL PN SOFT Non HDL Chol, Calc 110 0 - 159 mg/dL PN SOFT Hours Fasting 14.0 PN SOFT 03/29/2018 10:3 1 AM CDT 03/29/2018 10:31 AM CDT Narrative PN SOFT - 03/29/2018 11:11 AM CDT Performed at [facility], [address] [place], [place] [address] CLIA number [id number] Brii Nguyen PA-C LAB_1 Performing Organization Address [facility] Co de Phone Number PN SOFT [address] [place] [address] * (ABNORMAL) Creatinine / GFR (03/29/2018 10:31 AM CDT) Creatinine Serum 0.70(L) 0.73 - 1.18 mg/dL PN SOFT Est GFR Am >60 >60 mL/min/1.7 3m2 PN SOFT Est GFR Non-Afr Am >60 >60 mL/min/1.7 3m2 PN SOFT Comment: Normal>60, moderate decrease 30 - 59, severe decrease 15 - 29, renal failure <15 mL/min/1.73 m2 NOTE: Choose the eGFR result above appropriate for the race of the patient. 03/29/2018 10:3 1 AM CDT 03/29/2018 10:31 AM CDT Narrative PN SOFT - 03/29/2018 11:11 AM CDT Performed at [facility], [address] [place] [id number] CLIA number [id number] Brii Nguyen PA-C LAB_1 Performing Organization Address [facility] de Phone Number PN SOFT [address] [place] [address] * (ABNORMAL) POCT glycosylated hemoglobin (Hb A1C) (03/29/2018 9:47 AM CDT) Hemoglobin A1C, POC 9.1(A) 4 - 5.6 % PN POCT Cartridge Lot# [id number] PN POCT Blood specimen (specimen) 03/29/2018 9:47 AM CDT Brii Nguyen PA-C PN POINT OF CARE T ESTS Performing Organization Address [facility] Co de Phone Number PN POCT from Last 3 Months or Most Recently Relevant to Health Maintenance Care Teams Bat Person Relationship Specialty Start Date End Date Yung Rodriguez MD [place] [address] [facility] [address] [place] [address] PCP - General Pediatric Medicine 08/19/14
--- OUTSIDE RECORDS SUMMARY | 2024-10-12 12:33 | XMS_ITS | Encounter Summary ---
Author Organization [facility] Address [address] [facility] [place] [address] Care Team Providers Care Senior Manufacturing Supervisor Name Role Phone Yung Rodriguez MD Primary Care Provider Shanti Jimenes Primary Care Provider Chance Johnson MD Primary Care Provider [phone] Encounter Details Date Type Department Care Team ([facility] st Contact Info) Description 08/05/2011 Telephone [facility] Behavioral Health Intake [address] [place] [address] Generic, Behavioral Intake, Social History Tobacco Use Types Packs/Day Years Used Date Smoking Tobacco: Never Alcohol Use Standard Drinks/Week Comments No 0 (1 standard drink = 0.6 oz pur e alcohol) Sex and Gender Information Value Date Recorded Sex Assigned at Not on file Legal Sex Male 3:41 AM SUPERVISOR GROWER Gender Identity Not on file Sexual Orientation Not on file documented as of this encounter Miscellaneous Notes * Telephone Encounter - Epifanio Bridges - 08/11/2011 4:01 PM CDT Message copied by EPIFANIO BRIDGES on TueAug 11, 2011 4:01 PM ------ Message from: PRABHU FELDMAN Created: TueAug 11, 2011 1:25 PM Rambo will start this coming 08/16 and be followed by Dr. Sameera Garcia. Dr. Gooden is covering and will do admission orders. Chloe @ [facility] auth'd Pt through 09/07 and will call Nelson Motley (ther.) for review that day. Auth# [id number] * Telephone Encounter - Miriam Lovelace - 08/05/2011 9:39 AM CDT PER EPIC,PT REF TO ADOL PART FROM 4A. REF MADE. documented in this encounter Plan of Treatment Not on file documented as of this encounter Visit Diagnoses Not on filedocumented in this encounter Additional Health Concerns Infection Onset Date Last Indicated Resolved Time Rule Out COVID-19 07/15/2021 07/15/2021 07/15/2021 12:51 PM CDT Rule Out COVID-19 02/14/2022 02/14/2022 02/14/2022 11:02 PM CDT documented as of this encounter Care Teams Senior Manufacturing Supervisor Relationship Specialty Start Date End Date Yung Rodriguez MD PCP - General Pediatrics 07/31/11 10/03/16 Shanti Magdaleno PCP - General 10/04/16 08/03/17 Chance Saxena MD [facility] [id number] [place] [address] PCP - General Family Practice 08/04/17 documented as of this encounter
--- OUTSIDE RECORDS SUMMARY | 2024-10-12 12:33 | XMS_ITS | Clinical Summary ---
Author Organization [facility] Address [address] [address] [place] [address] Care Team Providers Care Dewer Name Role Phone Provider, No Attributed RESOURCE Unavailable Unavailable Social History Tobacco Use Types Packs/Day Years Used Date Smoking Tobacco: Never Assessed Sex and Gender Information Value Date Recorded Sex Assigned at Not on file Legal Sex Male 12:33 PM SCABBLER Gender Identity Not on file Sexual Orientation Not on file Plan of Treatment Not on file Care Teams Dewer Relationship Specialty Start Date End Date Provider, No Attributed, RESOURCE [address] PCP - Attributed Provider 08/10/16
--- OUTSIDE RECORDS SUMMARY | 2024-10-12 12:33 | XMS_ITS | Clinical Summary ---
Author Organization [place] Address [address] [facility] [place] [address] Care Team Providers Care Linotype Machinist Name Role Phone Chance Saxena MD Primary Care Provider [phone] Allergies Active Allergy Reactions Criticality Noted Date Comments Contrast Dye Shortness Of Breath,Hives,Swelling High 03/25/[address] contrast dye and after scan when pt went home, their eyes and throat became swollen. Metformin GI Disturbance 01/03/2017 Other reaction(s): GI Upset Diarrhea and abdominal pain Diarrhea and abdominal pain Penicillins Hives,Other (See Comments) High 07/31/2011 Diabetic ketoacidosis it puts me into Diabetic Shock PN: Reporting medication caused DKA, states was placed in hospital for week and a 1/2. Diabetic ketoacidosis Medications albuterol (PROAIR HFA/PROVENTIL HFA/VENTOLIN HFA) 108 (90 Base) MCG/ACT inhaler Inhale 1-2 puffs into the lungs every 4 hours as needed for shortness of breath / dyspnea 1 Inhaler 0 Active lisdexamfetamine (VYVANSE) 40 MG capsule Take 40 mg by mouth every morning Active Continuous Blood Gluc Sensor (DEXCOM G6 SENSOR) MISC Change every 10 days. Active benzonatate (TESSALON) 100 MG capsuleIndicatio ns:Moderate asthma with exacerbation, unspecified whether persistent Take 1 capsule (100 mg) by mouth 3 times daily as needed for cough 15 capsule 2 Active Insulin Lispro (HUMALOG KWIK PEN) 200 UNIT/ML soln Use to fill insulin pump. Inject up to 200 units daily. 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 Provider to review Anxiety 10/22/2011 ADHD (attention deficit hyperactivity disorder) 10/22/2011 Type 1 diabetes mellitus 08/01/2011 Overview (02/13/2015): Do you wish to do the replacement in the background? yes Resolved Problems Problem Noted Date Diagnosed Date Resolved Date Tachycardia 02/15/2022 07/12/2023 Hypertension, unspecified type 02/15/2022 07/12/20[address] stairs, initial encounter 03/21/2021 07/12/2023 Diabetic ketoacidosis withou t coma associated with type 1 diabetes mellitus 03/21/2021 07/12/2023 Suicidal ideation 03/21/2019 07/12/2023 Pneumonia 10/04/2016 07/12/2023 Chronic maxillary sinusitis 04/25/2013 07/12/2023 Deliberate self-cutting 10/22/201112/2022 Immunizations Name Administration Dates Next Due Influenza Vaccine >6 months,madina, PF 10/06/2016 Family History Medical History Relation Comments C.A.D. Father [place] Coronary Artery Disease Father Depression Father dad's side of th e family Hypertension Father Breast Cancer Maternal Aunt Hypertension Mother Alzheimer Disease Other great aunts an d uncles on mom's side of the family Diabetes Paternal Uncle 1 Diabetes Paternal Uncle 2 Relation Status Comments Father Maternal Aunt Mother Other Paternal Uncle 1 Paternal Uncle 2 Social History Tobacco Use Types Packs/Day Years Used Date Smoking Tobacco: Every Day Cigarettes Other Smokeless Tobacco: Never Tobacco Cessation:Ready to Q uit: Not Asked; Counseling Given: Not Answered Comments:About 6 cigarettes a week Alcohol Use Standard Drinks/Week Comments Yes 0 (1 standard drink = 0.6 oz pur e alcohol) vodka- occ Adolescent Education Answer Date Record ed Getting School Help Needed Not on file 07/12 Sex and Gender Information Value Date Recorded Sex Assigned at Not on file Legal Sex Male 3:41 AM COLLAR SETTER OVERLOCK Gender Identity Not on file Sexual Orientation Not on file Last Filed Vital Signs Vital Sign Reading Time Taken Comments Blood Pressure 114/85 05/30/2024 2:50 PM CDT Pulse 109 05/30/2024 2:50 PM CDT Temperature 37.1 C (98.7 F) 07/12/2023 1:25 PM CDT Respiratory Rate 20 05/30/2024 2:49 PM CDT Oxygen Saturation 95% 05/30/2024 5:55 PM CDT Inhaled Oxygen Concentration - - Weight 179 kg (394 lb 9.6 oz) 07/12/2023 2:09 AM CDT Height 167.6 cm (5' 6) 07/12/2023 2:09 AM CDT Body Mass Index 63.69 07/12/2023 2:09 AM CDT Plan of Treatment Health Maintenance Due Date Last Done Comments ANNUAL REVIEW OF HM ORDERS 1996 ASTHMA ACTION PLAN 1996 ASTHMA CONTROL TEST 1996 DEPRESSION ACTION PLAN 1996 DIABETIC FOOT EXAM 1996 EYE EXAM 1996 MICROALBUMIN 1996 PHQ-9 1996 YEARLY PREVENTIVE VISIT 1999 HIV SCREENING 2011 LIPID 10/23/2012 10/23/2011, 12/13/2009 HEPATITIS C SCREENING 2014 HEPATITIS B IMMUNIZATION (1 of 3 - 19+ 3-dose series) 2015 DTAP/TDAP/TD IMMUNIZATION (3 - Td or Tdap) 03/26/2019 03/26/2009, 06/14/2001 A1C 09/21/2021 03/22/2021, 03/10, 03/21/2019, Additional history exists ADVANCE CARE PLANNING 03/21/2024 03/21/2019 COVID-19 Vaccine ( season) 2024 09/15/2021, 02/19/2021, 01/20/2021 INFLUENZA VACCINE (#1) 2024 , 2019, 08/10/2017, Additional history exists BMP 05/30/2025 05/30/2024, 11/2022, 03/25/2022, Additional history exists Pneumococcal Vaccine: Pediatrics (0 to 5 Years) and At-Risk Patients (6 to 49 Years) (3 of 3 - PCV20 or PCV21) 2046 10/21/2021, 03/30/2018, 06/22/2000 RSV VACCINE (1 - 1-dose 75+ series) 2071 MENINGITIS IMMUNIZATION Aged Out 11/16/2016, 03/26 No longer eligible based on patient's age to complete this topic HPV IMMUNIZATION Completed 03/30/2018, 10/2016, 11/16/2016 TSH W/FREE T4 REFLEX Discontinued 03/21/2019, 10/23/2011, 12/13/2009 RSV MONOCLONAL ANTIBODY Aged Out No l onger eligible based on patient's age to complete this topic Medical Devices Implanted Type Area Search Specialist Device Identifier Shelf Expiration Date Model / Serial / Lot Staple Reload [place] 45mm 3.5mm White - [id number] Implanted:Qty : 1 on 12/16/2016 Metallic Hardware/Anc hor N/A: Abdomen [employer] 10/09/2020 [id number] / / [id number] Procedures Procedure Name Priority Date/Time Associated Diagnosis Comments BASIC METABOLIC PANEL STAT 05/30/2024 2:55 PM CDT HEMOGLOBIN A1C Routine 03/22/2021 1:44 AM CDT Diabetic ketoacidosis without coma associated with type 1 diabetes mellitus (H) TSH WITH FREE T4 REFLEX Timed 03/21/2019 7:04 AM CDT Continuous auditory hallucinations LIPID PROFILE Timed 10/23/2011 8:51 AM COLLAR SETTER OVERLOCK from Last 3 Months or Most Recently Relevant to Health Maintenance Results * (ABNORMAL) Basic metabolic panel (05/30/2024 2:55 PM CDT) [facility] Sodium 137 135 - 145 mmol/L 05/30/2024 3:32 PM CDT LABORATORY Potassium 4.3 3.4 - 5.3 mmol/L 05/30/2024 3:32 PM CDT LABORATORY Chloride 101 98 - 107 mmol/L 05/30/2024 3:32 PM CDT LABORATORY Carbon Dioxide (CO2) 26 22 - 29 mmol/L 05/30/2024 3:32 PM CDT LABORATORY Anion Gap 10 7 - 15 mmol/L 05/30/2024 3:32 PM CDT LABORATORY Urea Nitrogen 8.7 6.0 - 20.0 mg/dL 05/30/2024 3:32 PM CDT LABORATORY Creatinine 0.80 0.67 - 1.17 mg/dL 05/30/2024 3:32 PM CDT LABORATORY GFR Estimate >90 >60 mL/min/1.7 3m2 05/30/2024 3:32 PM CDT LAB[facility]ORY Comment:eGFR calculated usin g 2020 CKD-EPI equation. Calcium 9.3 8.8 - 10.4 mg/dL 05/30/2024 3:32 PM CDT LAB[facility]ORY Comment:Reference intervals for this test were updated on 04/24/2024 to reflect our healthy population more accurately. There may be differences in the flagging of prior results with similar values performed with this method. Those prior results can be interpreted in the context of the updated reference intervals. Glucose 39(LL) 70 - 99 mg/dL 05/30/2024 3:32 PM CDT LABORATORY Blood BLOOD SPECIMEN / Unknown Venipuncture / Unknown 05/30/2024 2:55 PM CDT 05/30/2024 2:58 PM CDT us Manuel Escobedo MD LAB - BLOOD ORDERABLES Final Res ult [facility] Acute [facility] Lab [address], [address] [place] [address], [facility] [phone] * (ABNORMAL) Hemoglobin A1c (03/22/2021 1:44 AM CDT) Hemoglobin A1C 6.1(H) 0 - 5.6 % 03/22/2021 2:26 AM CDT [facility] Comment: Normal <5.7% Prediabetes 5.7-6.4% Diabetes 6.5% or higher - adopted from ADA consensus guidelines. Blood 03/22/2021 1:44 AM CDT 03/22/2021 1:45 AM CDT us Andrés Escoto MD LAB - BLOOD ORDERABLES Final Result Performing Organization Address City/[facility]/ZIP Co de Phone Number [facility] [address] [place] [address], [facility] [phone] * TSH with free T4 reflex (03/21/2019 7:04 AM CDT) TSH 1.51 0.40 - 4.00 mU/L 03/21/2019 7:48 AM CDT [facility] Blood specimen (specimen) 03/21/2019 7:04 AM CDT 03/21/2019 7:05 AM CDT us Simi Lynn APRN STEAM TABLE WORKER LAB - BLOOD ORDER CHRIS Final Result [facility] [address] [place] [address] * (ABNORMAL) Lipid profile (10/23/2011 8:51 AM COLLAR SETTER OVERLOCK) Cholesterol 186 0 - 200 mg/dL [facility] Comment: LDL Cholesterol is the primary guide to therapy. The NCEP recommends further evaluation of: patients with cholesterol greater than 200 mg/dL if additional risk factors are present, cholesterol greater than 240 mg/dL, triglycerides greater than 150 mg/dL, or HDL less than 40 mg/dL. Triglycerides 201(H) 0 - 150 mg/dL [facility] HDL Cholesterol 40 40 - 110 mg/dL [facility] LDL Cholesterol Calculated 106 0 - 129 mg/dL [facility] Comment: LDL Cholesterol is the primary guide to therapy: LDL-cholesterol goal in high risk patients is <100 mg/dL and in very high risk patients is <70 mg/dL. VLDL-Cholesterol 40(H) 0 - 30 mg/dL [facility] Cholesterol/HDL Ratio 5.0 0.0 - 5.0 [facility] Blood specimen (specimen) 10/23/2011 8:51 AM COLLAR SETTER OVERLOCK 10/23/2011 9:02 AM COLLAR SETTER OVERLOCK Donna Hill MD LAB - BLOOD ORDERABLES Final Result [facility] [address] [phone], [facility] from Last 3 Months or Most Recently Relevant to Health Maintenance Insurance [employer] Advance Directives For more information, please contact: [phone] * Full Code (Latest Code Status on File) Date Activated Date Inactivated Comments 07/12/2023 12:45 AM 07/12/2023 3:58 PM All basic a nd advanced life-sustaining interventions are performed as appropriate Question Answer Comments Code status determined by: Discussion with patie nt/ legal decision maker * Full Code Date Activated Date Inactivated Comments 02/15/2022 2:35 AM 02/18/2022 2:06 PM All basic and advanced life-sustaining interventions are performed as appropriate Question Answer Comments Code status determined by: Discussion with patie nt/ legal decision maker * Full Code Date Activated Date Inactivated Comments 03/22/2021 2:09 PM 06/05/2021 2:44 PM Question Answer Comments Code status determined by: Discussion with patie nt/ legal decision maker * Full Code Date Activated Date Inactivated Comments 03/22/2021 1:16 AM 03/22/2021 2:09 PM All basic an d advanced life-sustaining interventions are performed as appropriate Question Answer Comments Code status determined by: Discussion with patie nt/ legal decision maker * Full Code Date Activated Date Inactivated Comments 03/21/2019 5:13 AM 03/28/2019 3:18 PM Question Answer Comments Code status determined by: Discussion with patie nt/legal decision maker Care Teams Linotype Machinist Relationship Specialty Start Date End Date Chance Saxena MD [facility] [id number] [place] [id number] PCP - General Family Practice 08/04/17
--- OUTSIDE RECORDS SUMMARY | 2024-10-12 12:33 | XMS_ITS | Encounter Summary ---
Author Organization [place] Address [address] [facility] [place] [address] Care Team Providers Care Parts Interpreter Name Role Phone Chance Saxena MD Primary Care Provider [phone] Encounter Details Date Type Department Care Team (Late st Contact Info) Description 07/15/2021 Documentation Only INTERFACED REPORT Unknown, Provider Social History Tobacco Use Types Packs/Day Years Used Date Smoking Tobacco: Some Days Cigarettes Smokeless Tobacco: Never Comments:About 6 cigarettes a week Alcohol Use Standard Drinks/Week Comments Yes 0 (1 standard drink = 0.6 oz pur e alcohol) vodka- occ Sex and Gender Information Value Date Recorded Sex Assigned at Not on file Legal Sex Male 3:41 AM TOGGLER Gender Identity Not on file Sexual Orientation Not on file COVID-19 Exposure Response Date Recorded In the last month, have you been in contact with someone who was confirmed or suspected to have Coronavirus / COVID-19? No / Unsure 07/15/2021 10:18 AM CDT documented as of this encounter Plan of Treatment Not on file documented as of this encounter Visit Diagnoses Not on filedocumented in this encounter Additional Health Concerns Infection Onset Date Last Indicated Resolved Time Rule Out COVID-19 07/15/2021 07/15/2021 07/15/2021 12:51 PM CDT Rule Out COVID-19 02/14/2022 02/14/2022 02/14/2022 11:02 PM CDT documented as of this encounter Care Teams Parts Interpreter Relationship Specialty Start Date End Date Chance Saxena MD [facility] [address] [place] [address] PCP - General Family Practice 08/04/17 documented as of this encounter
--- OUTSIDE RECORDS SUMMARY | 2024-10-12 12:33 | XMS_ITS | Encounter Summary ---
Author Organization [place] Address [address] [facility] [place] [address] Care Team Providers Care Guest Specialist Name Role Phone Yung Rodriguez MD Primary Care Provider Shanti Jimenes Primary Care Provider Chance Johnson MD Primary Care Provider [phone] Encounter Details Date Type Department Care Team (Late st Contact Info) Description 10/05/2011 Office Visit [facility] Reji Fam, DO [facility] [address] [place] [address] [address] Social History Tobacco Use Types Packs/Day Years Used Date Smoking Tobacco: Never Alcohol Use Standard Drinks/Week Comments No 0 (1 standard drink = 0.6 oz pur e alcohol) Sex and Gender Information Value Date Recorded Sex Assigned at Not on file Legal Sex Male 3:41 AM RN CASE MANAGER Gender Identity Not on file Sexual Orientation Not on file documented as of this encounter Progress Notes * Reji Fam MD - 10/05/2011 2:40 PM CST [facility] Psychiatric Progress Note Date of visit: 10/05/11 Impression: This is a 16 year old male with hx depression, anxiety, and ADHD. Struggles also with IDDM which has not been stable. Patient continuing to struggle with mood and behavior. DIagnoses: Tow I: MDD, recurrent, severe without psychosis. Generalized Anxiety Disorder. ADHD, combined type. Tow II: Deferred. Tow III: IDDM Tow IV: moderate psychosocial stressors Tow V: Global Assessment of Functionin Plan: Reviewed record; recommend cont current medication regimen as prescribed by Dr. Powell. This includes Zoloft which is being titrated upwards to target depression and anxiety; appears to be tolerating thus far. Strattera was started; will cont at present dose and expect further titration upwards as tolerated to target anxiety and ADHD, as well as helping with mood. Monitor patient for any signsof activation or worsening of mood. Cont to assess for safety. Strongly encourage patient to work on diabetic issues (eg. diet, etc) which has been an issue for some time. Family therapy recommended. Attestation: Patient has been seen and evaluated by me, REJI FAM MD Total amount of time: 20 minutes Coordination of care/counselin minutes Interim History: The patient's care was discussed with the treatment team and chart notes were reviewed. Patient reports he is feeling better. Struggles with remaining in groups which he states was an issue in school before day treatment. He feels his mood is ok. Denies SI. States he still has anxiety. Denies sleep or appetite issues (yolanda after being off of Adderall). He admits he does not watch what he eats and was asking what effect taking Zoloft and drinking alcohol would have today in group. Some inappropriate behaviors in program last week; more disruptive. No s/e from meds. The Review of Systems is negative other than noted in the HPI Medications: Zoloft (dose cannot be verified - patient reports now taking 150 mg qd?), Strattera 10 mg qd. Allergies: Allergies Allergen Reactions ??? Pcn (Penicillin G Ammonium) Psychiatric Examination: There were no vitals filed for this visit. Weight is 0 lbs 0 oz There is no height or weight on file to calculate BMI. Appearance: awake, alert and adequately groomed Attitude: cooperative Eye Contact: fair Mood: anxious Affect: appropriate and in normal range Speech: clear, coherent Psychomotor Behavior: no evidence of tardive dyskinesia, dystonia, or tics Thought Process: logical and linear Associations: no loose associations Thought Content: no evidence of suicidal ideation or homicidal ideation Insight: limited Judgment: limited Oriented to: time, person, and place Attention Span and Concentration: intact Recent and Remote Memory: intact Language: Able to name objects Fund of Knowledge: appropriate Muscle Strength and Tone: normal Gait and Station: Normal Labs: No results found for this or any previous visit (from the past 24 hour(s)). CASE MANAGER documented in this encounter Plan of Treatment Not on file documented as of this encounter Visit Diagnoses Not on filedocumented in this encounter Additional Health Concerns Infection Onset Date Last Indicated Resolved Time Rule Out COVID-19 07/15/2021 07/15/2021 07/15/2021 12:51 PM CDT Rule Out COVID-19 02/14/2022 02/14/2022 02/14/2022 11:02 PM CDT documented as of this encounter Care Teams Guest Specialist Relationship Specialty Start Date End Date Yung Rodriguez MD PCP - General Pediatrics 07/31/11 10/03/16 Shanti Magdaleno PCP - General 10/04/16 08/03/17 Chance Saxena MD [facility] [id number] [place] [id number] PCP - General Family Practice 08/04/17 documented as of this encounter
--- OUTSIDE RECORDS SUMMARY | 2024-10-12 12:33 | XMS_ITS | Referral Summary ---
Author Organization [place] Address [address] [place] [address] Care Team Providers Care Grapple Crew Leader Name Role Phone Chance Saxena MD Primary Care Provider [phone] Allergies Active Allergy Reactions Criticality Noted Date [...] Administration Dates Next Due Influenza Vaccine >6 months,quad, PF 10/06/2016 Social History Tobacco Use Types Packs/Day Years [...] on file Legal Sex Male 3:41 AM CONSUMER CREDIT COUNSELOR Gender Identity Not on file Sexual Orientation [...] 07/12/2023 2:09 AM CDT Plan of Treatment Not on file Medical Devices Implanted Type Area Mass Communications Instructor Device Identifier Shelf Expiration Date Model / Serial / Lot Staple Reload [place] 45mm 3.5mm White - [id number] Implanted:Qty : 1 on 12/16/2016 Metallic Hardware/Anc hor N/A: Abdomen [employer] [place] 10/09/2020 [id number] / / [id number] Procedures Procedure Name Priority Date/Time Associated Diagnosis Comments BASIC METABOLIC PANEL STAT 05/30/2024 2:55 PM CDT HEMOGLOBIN A1C Routine 03/22/2021 1:44 AM CDT Diabetic ketoacidosis without coma associated with type 1 diabetes mellitus (H) TSH WITH FREE T4 REFLEX Timed 03/21/2019 7:04 AM CDT Continuous auditory hallucinations LIPID PROFILE Timed 10/23/2011 8:51 AM CONSUMER CREDIT COUNSELOR from Last 3 Months or Most Recently Relevant to Health Maintenance Results * (ABNORMAL) Basic metabolic panel (05/30/2024 2:55 PM CDT) Sodium 137 135 - 145 mmol/L 05/30/2024 [...] 3:32 PM CDT LAB[facility]ATORY Comment:eGFR calculated usin 2020 CKD-EPI equation. Calcium 9.3 8.8 - [...] LAB - BLOOD ORDERABLES Final Res ult LABORATORY [facility] Acute Care Lab [address], [address] [place] [address], [facility] [phone] * (ABNORMAL) Hemoglobin A1c (03/22/2021 1:44 AM CDT) Hemoglobin A1C 6.1(H) 0 - 5.6 % 03/22/2021 2:26 AM CDT [facility] Comment: Normal <5.7% Prediabetes 5.7-6.4% Diabetes 6.5% or higher - adopted from ADA consensus guidelines. Blood 03/22/2021 1:44 AM CDT 03/22/2021 1:45 AM CDT us Andrés Escoto MD LAB - BLOOD ORDERABLES Final Result Performing Organization Address City/[facility]/ZIP Co de Phone Number [facility] [address] [place] [address], [facility] [phone] * TSH with free T4 reflex (03/21/2019 7:04 AM CDT) TSH 1.51 0.40 - 4.00 mU/L 03/21/2019 7:48 AM CDT [facility] Blood specimen (specimen) 03/21/2019 7:04 AM CDT 03/21/2019 7:05 AM CDT us Simi Lynn APRN, CNP LAB - BLOOD ORDER CHRIS Final Result [facility] [address] [place] [address] * (ABNORMAL) Lipid profile (10/23/2011 8:51 AM CONSUMER CREDIT COUNSELOR) Cholesterol 186 0 - 200 mg/dL [facility] Comment: LDL Cholesterol is the primary guide to therapy. The NCEP recommends further evaluation of: patients with cholesterol greater than 200 mg/dL if additional risk factors are present, cholesterol greater than 240 mg/dL, triglycerides greater than 150 mg/dL, or HDL less than 40 mg/dL. Triglycerides 201(H) 0 - 150 mg/dL [facility] HDL Cholesterol 40 40 - 110 mg/dL [facility] LDL Cholesterol Calculated 106 0 - 129 mg/dL [facility] Comment: LDL Cholesterol is the primary guide to therapy: LDL-cholesterol goal in high risk patients is <100 mg/dL and in very high risk patients is <70 mg/dL. VLDL-Cholesterol 40(H) 0 - 30 mg/dL [facility] Cholesterol/HDL Ratio 5.0 0.0 - 5.0 [facility] Blood specimen (specimen) 10/23/2011 8:51 AM CONSUMER CREDIT COUNSELOR 10/23/2011 9:02 AM CONSUMER CREDIT COUNSELOR Donna Hill MD LAB - BLOOD ORDERABLES Final Result Performing Organization Address City/State/[facility] Co de Phone Number [facility] [address] [id number] from Last 3 Months or Most Recently Relevant to Health Maintenance Insurance [employer] Advance Directives For more information, please contact: [phone] * Full Code (Latest Code Status on [...] with patie nt/legal decision maker Care Teams Grapple Crew Leader Relationship Specialty Start Date End Date Chance Saxena MD [facility] [id number] [place] [id number] PCP - General Family Practice 08/04/17
--- OUTSIDE RECORDS SUMMARY | 2024-10-12 12:33 | XMS_ITS | Encounter Summary ---
Author Organization [facility] Address [address] [place] [address] Care Team Providers Care Supervisor [employer] Name Role Phone Chance Saxena MD Primary Care Provider [phone] Reason for Visit * Reason Onset Date Comments MH/CD Inpatient 03/20/2019 Encounter Details Date Type Department Care Team ([facility] Contact Info) Description 03/20/2019 Telephone [facility] Intake [address] [place] [id number] Generic, Behavioral Intake, MH/CD Inpatient Social History Tobacco Use Types Packs/Day Years Used Date Smoking Tobacco: Some Days Cigarettes Smokeless Tobacco: Never Comments:About 6 cigarettes a week Alcohol Use Standard Drinks/Week Comments Yes 0 (1 standard drink = 0.6 oz pur e alcohol) vodka- occ Sex and Gender Information Value Date Recorded Sex Assigned at Not on file Legal Sex Male 3:41 AM [employer] STE[employer] Gender Identity Not on file Sexual Orientation Not on file documented as of this encounter Miscellaneous Notes * Telephone Encounter - Ale Wolfe - 03/21/2019 12:30 AM CDT A: Pt has insulin pump. Spoke with MD who reported pump will be removed and pt should be fine with regular insulin once admitted IP. Pt will have Endocrinology consult and they will decide insulin schedule. MD also reported pt received long-acting insulin overnight and will need regular insulin around breakfast time. call box wirer provider requesting ketoacidosis labs and wants blood sugar to be rechecked. Needs to be under 300 before accepted to the unit. ED notified at 0108. Glucose @ [phone] Creatinine 0.57 R: call box wirer notified of lab results and accepts. 4A/Ricky. Unit notified at 0307. ED notifiedat 0311. documented in this encounter Plan of Treatment Not on file documented as of this encounter Visit Diagnoses Not on filedocumented in this encounter Additional Health Concerns Infection Onset Date Last Indicated Resolved Time Rule Out COVID-19 07/15/2021 07/15/2021 07/15/2021 12:51 PM CDT Rule Out COVID-19 02/14/2022 02/14/2022 02/14/2022 11:02 PM CDT documented as of this encounter Care Teams Supervisor [employer] Relationship Specialty Start Date End Date Chance Saxena MD [facility] [address] [place] [address] PCP - General Family Practice 08/04/17 documented as of this encounter
--- OUTSIDE RECORDS SUMMARY | 2024-10-12 12:33 | XMS_ITS | Encounter Summary ---
Author Organization [facility] Address [address], [place] [address] Care Team Providers Care Transfer Station Attendant Name Role Phone Yung Rodriguez MD Primary Care Provider [phone] Encounter Details Date Type Department Care Team (Late st Contact Info) Description 08/19/2014 Consent for Procedure/Treatme nt [facility] INFORMED CONSENT RECORD Social History Tobacco Use Types Packs/Day Years Used Date Smoking Tobacco: Never Assessed Sex and Gender Information Value Date Recorded Sex Assigned at Not on file Gender Identity Not on file Sexual Orientation Not on file documented as of this encounter Plan of Treatment Not on file documented as of this encounter Visit Diagnoses Not on filedocumented in this encounter Care Teams Transfer Station Attendant Relationship Specialty Start Date End Date Yung Rodriguez MD [facility] [address] [place] [address] PCP - General Pediatric Medicine 08/19/14 documented as of this encounter
[2024-10-12 12:36] LABS: C Reactive Protein* 1.7 mg/dL (0.5-1.0)
[2024-10-12 12:41] LABS: Glucose* 25 mg/dL (60-115); Slide Review Reflex No
[2024-10-12 12:48] LABS: PCR FLU A Negative PCR FLU A (Negative); PCR FLU B Negative PCR FLU B (Negative); PCR RSV POSITIVE PCR RSV (Negative); SARS PCR* Negative SARS-CoV-2 (Negative)
[2024-10-12] MEDS: 10 % DEXTROSE 500 ML 500 ML 75 ML IV (13:27)
--- NOTE | 2024-10-12 15:03 | P.IMHP_ITS ---
Hospitalist- H&P: HPI History of Present Illness Date Seen: 10/12/24 Chief complaint: Pneumonia Narrative: Rambo Rodriguez is a 29 year old male with type 1 diabetes, obesity and RSV admitted to the hospital with difficulties managing his blood sugar. He 1st became ill about 5 days ago with upper respiratory illness symptoms. He has a history of asthma and 2 days ago started taking prednisone 40 mg daily. He has tested positive for RSV. His chest x-ray suggests a pattern of viral pneumonia. He was more short of breath early on in that is getting better. Yesterday he was having problems with hyperglycemia with blood sugars in the 300 range. Today is blood sugars have been low, down to 25 when he presented the emergency room. He did report some shakiness but no loss of consciousness. He has been eating relatively normally though he reports his appetite is less than usual with his RSV infection He manages his type 1 diabetes with an insulin pump and a continuous glucose monitor. He reports they communicate with each other. The pump is programmed to adjust to his high and low blood sugar readings. This is a new problem for him in the last month. He has a history of hypoglycemia. He works with his print production associate, Dr Rom Sommers, to manage this. He reports his last episode of loss of consciousness was about 3-4 months ago but he has had multiple episodes in his life. In the emergency department he was given an amp of D50, food, D10 IV infusion. Despite this his blood sugar remains low at 48. Currently asymptomatic. Pump has been taken off. He was continued to get his basal rate in the emergency department it appears. Will continue to feed him and closely monitor blood sugars Review of Systems Narrative: Review of systems unremarkable except for his respiratory illness and jitteriness with hypoglycemia. [facility] Medical History (Updated 10/12/24 @ 15:28 by Jayson Muñoz MD) Gastroparesis ?K31.84 - Gastroparesis (ICD-10) Attention deficit disorder ?F98.8 - Other specified behavioral and emotional disorders with onset usually occurring in childhood and adolescence (ICD-10) Morbid obesity ?E66.01 - Morbid (severe) obesity due to excess calories (ICD-10) Pneumonia due to respiratory syncytial virus (RSV) ?J12.1 - Respiratory syncytial virus pneumonia (ICD-10) Type 1 diabetes mellitus ?E10.9 - Type 1 diabetes mellitus without complications (ICD-10) Surgical History (Updated 10/12/24 @ 15:17 by Jayson Muñoz MD) H/O ventral hernia repair ?Z98.890 - Other specified postprocedural states (ICD-10) ?Z87.19 - Personal history of other diseases of the digestive system (ICD-10) History of unilateral orchiectomy ?Z90.79 - Acquired absence of other genital organ(s) (ICD-10) History of esophagogastroduodenoscopy (EGD) ?Z98.890 - Other specified postprocedural states (ICD-10) History of laparoscopic appendectomy ?Z90.49 - Acquired absence of other specified parts of digestive tract (ICD- 10) Family History (Updated 10/12/24 @ 15:19 by Jayson Muñoz MD) Mother Asthma Sister Depression Father Coronary artery disease Social History (Updated 10/12/24 @ 15:20 by Jayson Muñoz MD) Narrative: He lives with his mother. He works at [employer]. He vapes nicotine. He occasionally smokes cannabis. He does not drink alcohol. Meds Home Medications and Allergies Home Medications ?Medication ?Instructions ?Recorded ?Confirmed ?Type albuterol sulfate 90 mcg/actuation 2 puff inhalation Q4H PRN wheezing 10/12/24 10/12/24 History aerosol inhaler (Ventolin HFA) glucagon 1 mg/0.2 mL subcutaneous 1 mg subcut DAILY PRN 10/12/24 10/12/24 History auto-injector (Gvoke HypoPen 1-Pack) insulin lispro 200 unit/mL (3 mL) 0 - 200 unit subcut DAILY 10/12/24 10/12/24 History subcutaneous pen (Humalog KwikPen U-200 Insulin) lisdexamfetamine 40 mg capsule 40 mg PO QAM 10/12/24 10/12/24 History Allergies Allergy/AdvReac Type Severity Reaction Status Date / Time Penicillins Allergy Severe Anaphylaxis Verified 10/12/24 15:27 metformin Allergy Intermediate Vomiting Verified 10/12/24 15:27 mri contrast Allergy Severe Anaphylaxis Uncoded 10/12/24 15:27 Exam Narrative: Exam Narrative: He is alert and appears in no distress. Breathing is unlabored. He is oriented to his circumstances and gives detailed history of recent events. Head is without trauma. Eyes normal. Oropharynx with small airway. Neck is supple without mass or adenopathy. Respirations with a rare crackle or wheeze. Fairly good air exchange all lung klein. Cardiovascular: S1, S2, regular rate and rhythm abdomen: Bowel sounds active. Abdomen is soft without tenderness. Extremities with mild edema. Intact capillary refill and intact pulses. Const: Vital Signs, click to edit/add: Vital Signs - 24 hr 10/12/24 11:50 10/12/24 12:01 10/12/24 12:11 Temperature 98.1 F Pulse Rate 105 H Pulse Rate [Pulse Oximeter] 100 Respiratory Rate 28 H Blood Pressure Blood Pressure [Le ft Forearm] 179/105 H Pulse Oximetry 93 90 89 Oxygen Delivery Me thod Room Air 10/12/24 12:14 10/12/24 12:21 10/12/24 12:41 Temperature Pulse Rate 101 H 102 H 106 H Pulse Rate [Pulse Oximeter] Respiratory Rate 28 H 22 Blood Pressure 138/83 132/79 123/75 Blood Pressure [Le ft Forearm] Pulse Oximetry 92 93 92 Oxygen Delivery Me thod 10/12/24 13:01 10/12/24 13:21 10/12/24 13:30 Temperature Pulse Rate 97 101 H Pulse Rate [Pulse Oximeter] Respiratory Rate 15 32 H 21 Blood Pressure 125/88 141/82 H Blood Pressure [Le ft Forearm] Pulse Oximetry 93 95 Oxygen Delivery Me thod Documenting provider has reviewed patient's vital signs: yes Hospitalist - H&P: Result Labs Labs: Short CBC 10/12/24 Range/Units 11:53 WBC 11.30 H (4.50-11.00) K/uL Hgb 14.6 (13.5-17.5) gm/dL Hct 48.2 (37.0-53.0) % Plt Count 360 (140-440) K/uL BMP 10/12/24 11:53 Sodium 141 Potassium 3.1 L Chloride 101 Carbon Dioxide 30 BUN 16 Creatinine 0.7 Glucose 25 L* Calcium 9.0 Liver Function 10/12/24 Range/Units 11:53 Total Bilirubin 0.5 (0.1-1.5) mg/dL AST 25 (12-35) U/L ALT 30 (4-50) U/L Alkaline Phosphatase 84 (40-150) U/L Albumin 4.4 (3.3-5.0) g/dL Imaging Chest x-ray: Radiologist's impression: Indication: Cough Technique: Chest 1 view Comparison: None Findings/Impression: Cardiovascular and mediastinum: Heart size and vasculature are normal in caliber and appearance. Lungs and pleural space: No pleural effusion or pneumothorax. Bronchial wall thickening with some interstitial indistinctness surrounding the bronchi suspicious for a viral/interstitial pneumonia. Bones and soft tissues: No acute findings. Assessment and Plan Assessment and plan (1) Diabetes mellitus with hypoglycemia: Problem comment: 29-year-old male with type 1 diabetes now having fairly significant hypoglycemia. The cause for this appears unclear. He is appropriately using his continues glucose monitor and insulin pump. He is eating though less than usual. Elevated sugars yesterday probably due to prednisone but he even made a correction for that with his pump. It is possible that there is some variable absorption of insulin contributing to this. Has follow-up with his endocrin ologist in 2-3 weeks and this should be reviewed at that time. Status: Acute Assessment and Plan: In the hospital we will closely monitor blood sugars. I have asked him to put his pump back on. I would like to see what happens with his blood sugars with his pump working appropriately. (2) Pneumonia due to respiratory syncytial virus (RSV): Problem comment: Clinically still having symptoms of illness though not currently hypoxic. Continue to monitor Status: Acute (3) Asthma: Problem comment: A believe his blood sugar problems are more difficult than his respiratory problems. Will hold off on prednisone for that recent. Status: Acute Plan Continue in-hospital for blood sugar monitoring and management and monitoring of RSV pneumonia. Total Time Spent Total Time Spent: Total time spent is 75 minutes in evaluation and management on the day of admission
[2024-10-12] MEDS: POTASSIUM BICARB 25 MEQ EFFERVESCENT TAB 50 MEQ PO (16:00)
--- NOTE | 2024-10-12 18:57 | PC.NURSE ---
Pt arrived to floor at 1430. Pt has complaints of SOB, pain in middle of chest from coughing and hypoglycemic. Pts blood sugars as follows: 1445:48, 1545: 104 (Dexcom 64), 1645: 109 (Dexcom 147), 1700: 99?(Dexcom 89), 1745:?95 (Dexcom 96)- Pt?s basal rate at 0 on insulin pump per MD.? 1845:?186 (Dexcom 144) Per MD D10 was stopped, Pt to set basal rate on insulin pump to one and carb count for supper and bolus that amount of insulin. Recheck blood glucose in one hour.?
[2024-10-12] MEDS: SODIUM CHLORIDE 0.9 % (FLUSH) 10 ML SYRINGE 5 ML IVF (20:45)
--- NOTE | 2024-10-12 20:50 | PC.NURSE ---
Pt BG was 79 at 2044. notified. Snack given. Basil Pump turned off.
[2024-10-13] VITALS (7 sets, daily range): BP systolic 131–149; BP diastolic 77–93; PULSE 84–110; RESP 18–20; TEMP 36.1–36.8; O2SAT 66–97
[2024-10-13 07:32] LABS: Chloride* 102 mmol/L (96-114); Potassium* 4.2 mmol/L (3.6-5.1); Sodium* 137 mmol/L (135-149)
[2024-10-13 07:35] LABS: Anion Gap 6 mEq/L (7-15); Blood Urea Nitrogen* 15 mg/dL (5-24); Carbon Dioxide* 29 mmol/L (20-32); Creatinine* 0.6 mg/dL (0.5-1.5); Est. Creatinine Clearance* 171.37; Estimated Glomerular Filt Rate 135 ml/min
[2024-10-13 07:36] LABS: Calcium* 8.9 mg/dL (8.4-10.6); Glucose* 168 mg/dL (60-115)
--- NOTE | 2024-10-13 10:30 | RESP.RT ---
Pt seen this AM. Sitting on side of bed eating. BBS difficult to assess, but good aeration. RA SPO2 low 90s. Talked about sleep apnea. He has a sleep study approximately 10- 12 years ago with f/u ENT surgery. Pt reports freq. falling asleep at work, driving etc. He thinks he has narcolepsy. Does have vivid dreams before he falls asleep during the day. Needs a sleep study at an [facility]. He has hx of asthma, reports a rescue inhaler which he nahomy uses. Does not see pulmonology. Pt smokes, vapes, and smokes cannabis. Discussed urgent need to stop this, starting with one of them initially, he does agree. could consider HS oximetry, however I think from interview it is clear he needs a sleep study.
--- NOTE | 2024-10-13 15:21 | P.IMPN_ITS ---
Progress Note: A&P Assessment and plan (1) Uses self-applied continuous glucose monitoring device: Problem details: Appears inaccurate when compared to fingerstick blood sugars until CGM placed at a new site today and accuracy improved. Status: Acute (2) Complication of insulin pump: Problem details: Insulin pump does not appear to be responding appropriately to hypoglycemia or patient is having inconsistent absorption of insulin from the pump causing episodes of hypoglycemia Status: Acute (3) Diabetes mellitus with hypoglycemia: Problem details: 29-year-old male with type 1 diabetes now having fairly significant hypoglycemia. The cause for this appears unclear. He is appropriately using hi s continues glucose monitor and insulin pump. He is eating though less than usual. Elevated sugars yesterday probably due to prednisone but he even made a correction for that with his pump. Patient is having severe hypoglycemia despite having no change to pump settings. Status: Acute (4) Pneumonia due to respiratory syncytial virus (RSV): Problem details: Clinically still having symptoms of illness though not currently hypoxic. Continue to monitor Status: Acute (5) Morbid obesity: Problem details: BMI of 59 Status: Acute Plan Continue in-hospital for monitoring of hypoglycemia and adjusting pump settings to avoid hypoglycemia. Time Spent With Patient Total time spent: Total time spent today is 60 minutes in coordination of care and discussing with patient and nursing staff monitoring of diabetes, continues glucose monitoring and insulin pump use Subjective Date Seen: 10/13/24 Interval history: Rambo Rodriguez is a 29 year old male with type 1 diabetes, obesity and RSV admitted to the hospital with difficulties managing his blood sugar. He 1st became ill about 5 days ago with upper respiratory illness symptoms. He has a history of asthma and 2 days ago started taking prednisone 40 mg daily. He has tested positive for RSV. His chest x-ray suggests a pattern of viral pneumonia. He was more short of breath early on in that is getting better. Yesterday he was having problems with hyperglycemia with blood sugars in the 300 range. Today is blood sugars have been low, down to 25 when he presented the emergency room. He did report some shakiness but no loss of consciousness. He has been eating relatively normally though he reports his appetite is less than usual with his RSV infection He manages his type 1 diabetes with an insulin pump and a continuous glucose monitor. He reports they communicate with each other. The pump is programmed to adjust to his high and low blood sugar readings. This is a new problem for him in the last month. He has a history of hypoglycemia. He works with his data governance consultant, Dr Rom Sommers, to manage this. He reports his last episode of loss of consciousness was about 3-4 months ago but he has had multiple episodes in his life. In the emergency department he was given an amp of D50, food, D10 IV infusion. Despite this his blood sugar remains low at 48. Currently asymptomatic. Pump has been taken off. He was continued to get his basal rate in the emergency department it appears. Will continue to feed him and closely monitor blood sugars 10/13/2024: Yesterday patient was continue to have low blood sugars. He received minimal insulin until last evening when his blood sugars improved. Overnight he was on a basal rate of 1 unit/hour with mildly elevated blood sugars in the 200s. His blood sugars were consistently different than finger stick blood sugars performed by the nurses commonly off by 40 mg/dL Today he was able to replace his continuous glucose monitor at a new site and his insulin pump at a new site. Today I recommended we resume his previous pump settings. His glucose monitor now appears to be more accurate, off by 10 or 15 units at most. His blood sugars have dropped into the 70-80 range on his previous insulin pump settings. Because of this we turned his basal rate down to 1 unit/hour. He continues to eat normally. He continues to cough due to his RSV infection but is not hypoxic. Exam Narrative: Exam Narrative: He is alert and appears in no distress. Respirations are unlabored. Breath sounds are clear to auscultation with a rare wheeze. Cardiovascular: S1, S2, regular rate and rhythm. Abdomen is soft without tenderness. Const: Vital Signs, click to edit/add: Vital Signs - 24 hr 10/12/24 19:48 10/12/24 22:26 10/12/24 22:27 Temperature 97.7 F Pulse Rate [Pulse Oximeter] 101 H 101 H Respiratory Rate 18 18 18 Blood Pressure [Le ft Arm] 122/56 L Pulse Oximetry 93 93 Oxygen Delivery Me thod Room Air Oxygen Flow Rate 10/12/24 22:49 10/12/24 23:57 10/13/24 01:14 Temperature 97.6 F Pulse Rate [Pulse Oximeter] 95 Respiratory Rate 18 Blood Pressure [Le ft Arm] 128/79 Pulse Oximetry 95 93 66 L Oxygen Delivery Me thod Nasal Cannula Nasal Cannula Oxygen Flow Rate 2 10/13/24 01:21 10/13/24 04:00 10/13/24 07:30 Temperature 98.2 F Pulse Rate [Pulse Oximeter] 109 H Respiratory Rate 18 Blood Pressure [Le ft Arm] 148/82 H Pulse Oximetry 92 91 91 Oxygen Delivery Me thod OxyMask Room Air Oxygen Flow Rate 6 10/13/24 07:30 10/13/24 07:30 10/13/24 07:30 Temperature 97.8 F Pulse Rate [Pulse Oximeter] 92 92 Respiratory Rate 18 18 18 Blood Pressure [Le ft Arm] 131/83 Pulse Oximetry 91 91 Oxygen Delivery Me thod Room Air Room Air Oxygen Flow Rate 10/13/24 12:07 Temperature 97.5 F L Pulse Rate [Pulse Oximeter] 110 H Respiratory Rate 18 Blood Pressure [Le ft Arm] 141/93 H Pulse Oximetry 92 Oxygen Delivery Me thod Room Air Oxygen Flow Rate Documenting provider has reviewed patient's vital signs: yes Labs Labs: Laboratory Results - last 24 hr 10/13/24 06:25 Sodium 137 Potassium 4.2 Chloride 102 Carbon Dioxide 29 Anion Gap 6 L BUN 15 Creatinine 0.6 Estimated Creat Clear 171.37 Estimated GFR 135 Glucose 168 H Calcium 8.9
--- NOTE | 2024-10-13 18:00 | PC.NURSE ---
end of shift. pt has been pleasant. he is alert x4. BS are being done. see charting. he is up ab courtney. no pain. he is using IS and Aerobika. 1200 md had pt restart his pump. @ 1400 he was 78. pump was paused and he was 91 @ 1415. and 1500 he was 20. his Dexcom was not working. we where doing a blood sugar check he was 20. he did not have any symptoms of hypoglycemia. md was updated. pump was removed. he was given a snack and food. he was alert x4 during this time. he snores when sleeping/ RT was here and saw pt.
[2024-10-13] MEDS: SODIUM CHLORIDE 0.9 % (FLUSH) 10 ML SYRINGE 5 ML IVF (23:45)
[2024-10-14 00:22] VITALS: BP 153/79; PULSE 96; RESP 18; O2SAT 93
[2024-10-14 06:46] VITALS: BP 149/80; PULSE 101; RESP 20; TEMP 36.4; O2SAT 94
--- NOTE | 2024-10-14 06:52 | PC.NURSE ---
End of shift ? Pt alert, oriented, cooperative. Up independently in room. Tolerating RA while awake and regular diet. Pt tolerating 6L via oxymask while asleep to maintain O2 saturation above 88% per MD. Pt reported discomfort in chest from coughing described as ?soreness?. Pt blood glucose reading taken hourly and basal rate adjusted between 0-1 per MD to maintain range value of 100-200. Pt observed to sleep during shift, appears to be resting comfortably at end of shift with call light within reach. ?
[2024-10-14 07:00] VITALS: BP 134/63; PULSE 96; RESP 18; TEMP 36.9; O2SAT 94
[2024-10-14] MEDS: ACETAMINOPHEN 325 MG TABLET 650 MG PO (09:21)
[2024-10-14] MEDS: SODIUM CHLORIDE 0.9 % (FLUSH) 10 ML SYRINGE 5 ML IVF (09:23)
[2024-10-14 11:00] VITALS: BP 135/60; PULSE 101; RESP 20; TEMP 36.4; O2SAT 95
--- NOTE | 2024-10-14 14:20 | PC.NURSE ---
Discharge Summary: Patient pleasant and cooperative. Afebrile. O2 sats greater than 90% on room air while awake. C/o achiness from coughing and PRN Tylenol given x1. Up independently. Tolerating regular diet with no nausea. Blood glucose checked x2 this AM and updated MD. OK to change to before meals and bedtime. Patient discharged home at 1406 with all personal belongings accompanied by mother. Discharge instructions including diagnosis, medications and follow up appointment discussed with patient and voiced understanding.
--- NOTE | 2024-10-14 14:42 | P.DS_ITS ---
DS: Providers Provider Date Seen: 10/14/24 Date of admission: 10/13/24 15:31 Primary care physician: Chance Saxena MD Admitting Clinician: Adia Bo MD Attending Physician on discharge: Jayson Muñoz MD Date of Discharge: 10/14/24 DS: Diagnosis Discharge Diagnosis (1) Diabetes mellitus with hypoglycemia: Status: Acute Problem details: On admission patient had a glucose of 25 without significant symptoms. This was an incidental finding while he was evaluated for his respiratory/RSV infection. He is admitted to the hospital for hypoglycemia and was ultimately determined that his pump needed adjustment and his continuous glucose monitor needed to be redone. (2) Complication of insulin pump: Status: Acute Problem details: Patient continued to have problems with hypoglycemia whenever his insulin pump was activated. Initially this was resolved by disconnecting the pump. In attempt to solve the problem the pump was reconnected and basal rate was adjusted. Apparently this pump cannot have the basal rate adjusted as it response to his blood sugar regardless of adjustments. In reviewing this with his biometric fingerprinting technician who has access to his pump data the recommendation was to decrease the corrective dose of insulin in the pump. (3) Uses self-applied continuous glucose monitoring device: Status: Acute Problem details: Appears inaccurate when compared to fingerstick blood sugars until CGM placed at a new site today and accuracy improved. Prior to replacing his Dexcom his blood sugars were off by 40 mg/dl of dextrose compared to fingersticks in the hospital. After replacement they were typically within about 10 mg/dl (4) Morbid obesity: Status: Acute Problem details: BMI of 59 (5) Pneumonia due to respiratory syncytial virus (RSV): Status: Acute Problem details: Clinically still having symptoms of illness with cough. He did not get hypoxia. No specific therapy required (6) Asthma: Status: Acute Problem details: A believe his blood sugar problems are more difficult than his respiratory problems. Will hold off on prednisone for that recent. DS: Summary Hospital Course Hospital Course: Rambo Rodriguez is a 29 year old male with type 1 diabetes, obesity and RSV admitted to the hospital with difficulties managing his blood sugar. He 1st became ill about 5 days ago with upper respiratory illness symptoms. He has a history of asthma and 2 days ago started taking prednisone 40 mg daily. He has tested positive for RSV. His chest x-ray suggests a pattern of viral pneumonia. He was more short of breath early on in that is getting better. Yesterday he was having problems with hyperglycemia with blood sugars in the 300 range. Today is blood sugars have been low, down to 25 when he presented the emergency room. He did report some shakiness but no loss of consciousness. He has been eating relatively normally though he reports his appetite is less than usual with his RSV infection He manages his type 1 diabetes with an insulin pump and a continuous glucose monitor. He reports they communicate with each other. The pump is programmed to adjust to his high and low blood sugar readings. This is a new problem for him in the last month. He has a history of hypoglycemia. He works with his biometric fingerprinting technician, Dr Rmo Sommers, to manage this. He reports his last episode of loss of consciousness was about 3-4 months ago but he has had multiple episodes in his life. In the emergency department he was given an amp of D50, food, D10 IV infusion. Despite this his blood sugar remains low at 48. Currently asymptomatic. Pump has been taken off. He was continued to get his basal rate in the emergency department it appears. Will continue to feed him and closely monitor blood sugars 10/13/2024: Yesterday patient was continue to have low blood sugars. We attempted to reset the basal rate on his pump but according to his biometric fingerprinting technician this would not work because the pump will over ride what ever setting is made and respond to his blood sugar. Unfortunately his blood sugar monitoring is also inaccurate until yesterday when he relocated his Dexcom monitor. 10/14/2024 overnight he did well with his pump in place. Blood sugars were better controlled. Recommendations from endocrinology was to reduce his corrective dose insulin which appeared to be the main cause for his hypoglycemia. He still having cough which is somewhat productive. No hypoxia or fever. Overall feeling better and anxious to go home Time Spent with Patient Time attestation: Total time spent providing and/or coordinating discharge services: 45 minutes Time spent: Greater than 30 minutes Exam Narrative: Exam Narrative: He is alert and appears in no distress. Respirations are clear to auscultation without wheezing. Occasional rhonchi. Breathing unlabored. Cardiovascular: S1, S2, regular rate and rhythm. Const: Vital Signs, click to edit/add: Vital Signs - 24 hr 10/13/24 15:00 10/13/24 15:00 10/13/24 15:00 Temperature Pulse Rate [Pulse Oximeter] 110 H Respiratory Rate 18 18 Blood Pressure [Le ft Arm] Pulse Oximetry 93 93 Oxygen Delivery Me thod Room Air Oxygen Flow Rate 10/13/24 15:00 10/13/24 21:49 10/14/24 00:22 Temperature 97.0 F L Pulse Rate [Pulse Oximeter] 105 H 84 Respiratory Rate 18 20 Blood Pressure [Le ft Arm] 149/77 H Pulse Oximetry 93 97 93 Oxygen Delivery Me thod Room Air Room Air Oxygen Flow Rate 6 10/14/24 00:22 10/14/24 00:22 10/14/24 06:46 Temperature 97.5 F L Pulse Rate [Pulse Oximeter] 96 101 H Respiratory Rate 18 20 Blood Pressure [Le ft Arm] 153/79 H 149/80 H Pulse Oximetry 93 93 94 Oxygen Delivery Me thod Room Air Room Air Room Air Oxygen Flow Rate 10/14/24 07:00 10/14/24 07:00 10/14/24 07:00 Temperature 98.5 F Pulse Rate [Pulse Oximeter] 96 Respiratory Rate 18 Blood Pressure [Le ft Arm] 134/63 Pulse Oximetry 94 94 94 Oxygen Delivery Me thod Room Air Room Air Oxygen Flow Rate 10/14/24 07:00 10/14/24 11:00 Temperature 97.6 F Pulse Rate [Pulse Oximeter] 96 101 H Respiratory Rate 18 20 Blood Pressure [Le ft Arm] 135/60 Pulse Oximetry 95 Oxygen Delivery Me thod Room Air Oxygen Flow Rate Documenting provider has reviewed patient's vital signs: yes DS: Data Imaging Chest x-ray: Radiologist's impression: Indication: Cough Technique: Chest 1 view Comparison: None Findings/Impression: Cardiovascular and mediastinum: Heart size and vasculature are normal in caliber and appearance. Lungs and pleural space: No pleural effusion or pneumothorax. Bronchial wall thickening with some interstitial indistinctness surrounding the bronchi suspicious for a viral/interstitial pneumonia. Bones and soft tissues: No acute findings. Discharge Plan Discharge Disposition: Home, Self-Care Date of Admission: 10/13/24 15:31 Attending Provider on Discharge: Jayson Muñoz Primary Care Provider: Chance Saxena Condition: Improved Anticipated Discharge Date/Time: 10/14/24 12:39 Discharge Medications: Continued albuterol sulfate [Ventolin HFA] 90 mcg/actuation HFA aerosol inhaler 2 puff INHALATION Q4H PRN (Reason: wheezing) Gvoke HypoPen 1-Pack 1 mg/0.2 mL auto-injector 1 mg subcut DAILY PRN lisdexamfetamine 40 mg capsule 40 mg PO QAM Humalog KwikPen Insulin 200 unit/mL (3 mL) insulin pen 0 - 200 unit subcut DAILY Patient Comments: VIA PUMP Discharge Orders: Discharge Order (Routine); Ordered 10/14/24 Ordered By: Jayson Muñoz Patient Education: Hypoglycemia in a Person with Diabetes (DC), RSV (Respiratory Syncytial Virus) Infection (DC) Additional Instructions: Continue your glucose monitoring and insulin pump as before admission except for the adjustment that the biometric fingerprinting technician recommended for your corrective dose of insulin. See your biometric fingerprinting technician at the appointment already arranged. Call your biometric fingerprinting technician if continued to have problems with low blood sugar Activity Level: No Restrictions Discharge Diet: Diabetic Follow Up Appointments: Chance Saxena MD [Primary Care Provider] - Provider,Not a Local [Non-Staff] - Forms: [employer] Info Instructions
[2024-10-15 12:34] LABS: B. pertussis/parapertus Source Not Provided; Bordetella parapertussis PCR Not Detected; Bordetella pertussis by PCR Not Detected
== END 2024-10-14 14:06 | disposition home or self-care (01) | DRG 637 ==
LOC: ED 13:30 → MEDSURG 13:53
PROVIDERS: Admitting Provider Family Medicine; Emergency Provider Family Medicine; PCP Family Medicine; Visit Provider Family Medicine
DX: E10.649 Type 1 diabetes mellitus with hypoglycemia without coma (principal); J12.1 Respiratory syncytial virus pneumonia; Z68.44 Body mass index [BMI] 60.0-69.9, adult; T85.694A Other mechanical complication of insulin pump, initial encounter; T38.3X1A Poisoning by insulin and oral hypoglycemic [antidiabetic] drugs, accidental (unintentional), initial encounter; E16.A3 Hypoglycemia level 3; E10.65 Type 1 diabetes mellitus with hyperglycemia; Z96.41 Presence of insulin pump (external) (internal); Z79.4 Long term (current) use of insulin; F98.8 Other specified behavioral and emotional disorders with onset usually occurring in childhood and adolescence; E66.01 Morbid (severe) obesity due to excess calories; J45.909 Unspecified asthma, uncomplicated
CPT/HCPCS: 36415; 71045; 80048; 80053; 82803; 82962; 83605; 85025; 86140; 87631; 94664; 94761; 99284; 99291; A9270; G0378

== ENCOUNTER 2025-01-01 08:18 | Outpatient (CLI) | payer OTHER, SELFPAY | END 2025-01-01 08:19 | disposition home or self-care (01) | LOC: AMB 01-02 13:40 | PROVIDERS: PCP Family Medicine; Visit Provider Family Medicine | DX: E11.649 Type 2 diabetes mellitus with hypoglycemia without coma (principal); R41.82 Altered mental status, unspecified | CPT/HCPCS: A0998 ==

== ENCOUNTER 2025-03-07 06:45 | Observation (INO) | payer OTHER, SELFPAY ==
--- OUTSIDE RECORDS SUMMARY | 2025-03-03 20:24 | XMS_ITS | Encounter Summary ---
Author Organization [place] Address [address] [facility] [address] Care Team Providers Care Medical Staff Credentialing Coordinator Name Role Phone Chance Saxena MD Primary Care Provider [phone] Reason for Visit * Reason Comments Hypoglycemia Encounter Details Date Type Department Care Team (Late st Contact Info) Description 03/03/2025 8:24 PM CDT - 03/04/2025 2:12 AM CDT Emergency [facility] Emergency Dept [address] [place] [address] Kevan Tabor MD [facility] [address], [address] [id number] Hypoglycemia; Syncope and collapse Discharge Disposition: Home or Self Care Social History Tobacco Use Types Packs/Day Years Used Date Smoking Tobacco: Every Day Cigarettes Other Smokeless Tobacco: Never Comments:About 6 cigarettes a week Alcohol Use Standard Drinks/Week Comments Yes 0 (1 standard drink = 0.6 oz pur e alcohol) vodka- occ Adolescent Education Answer Date Record ed Getting School Help Needed Not on file 07/12 Sex and Gender Information Value Date Recorded Sex Assigned at Not on file Legal Sex 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 Gender Identity Not on file Sexual Orientation Not on file documented as of this encounter Last Filed Vital Signs Vital Sign Reading Time Taken Comments Blood Pressure 118/97 03/04/2025 1:18 AM CDT Pulse 98 03/04/2025 1:46 AM CDT Temperature 36.7 C (98 F) 03/03/2025 8:30 PM CDT Respiratory Rate 14 03/04/2025 1:46 AM CDT Oxygen Saturation 98% 03/04/2025 1:46 AM CDT Inhaled Oxygen Concentration - - Weight - - Height - - Body Mass Index - - documented in this encounter Discharge Instructions * Discharge Instructions* Kevan Tabor MD - 03/04/2025 1:09 AM CDT Return to the emergency department if symptoms are worsening, become concerning, or for any other concerns. Follow-up with your doctor in 2-3 days and sooner if needed. * Attachments The following attachments cannot be sent through Care Everywhere. * Hypoglycemia (French) * Hypoglycemia in Diabetes: General Info (French) documented in this encounter Medications at Time of Discharge albuterol (PROAIR HFA/PROVENTIL HFA/VENTOLIN HFA) 108 (90 Base) MCG/ACT inhaler Inhale 1-2 puffs into the lungs every 4 hours as needed for shortness of breath / dyspnea 1 Inhaler 10/18/2019 benzonatate (TESSALON) 100 MG capsuleIndication s:Moderate asthma with exacerbation, unspecified whether persistent Take 1 capsule (100 mg) by mouth 3 times daily as needed for cough 15 capsule 02/18/2022 Continuous Blood Gluc Sensor (DEXCOM G6 SENSOR) MISC Change every 10 days. hydrOXYzine (ATARAX) 50 MG tablet Take 50 mg by mouth every 6 hours as needed for anxiety Insulin Lispro (HUMALOG KWIK PEN) 200 UNIT/ML soln Use to fill insulin pump. Inject up to 200 units daily. INSULIN PUMP - OUTPATIENT Date Last Updated: [...] Time: 3 hours Sensor: Yes: Dexcom G6 lisdexamfetamine (VYVANSE) 40 MG capsule Take 40 mg by mouth every morning documented as of this encounter ED Notes * Brii King RN - 03/04/2025 2:12 AM CDT Patient ambulated out of department, brother here to pick him up. * Brii King RN - 03/04/2025 12:57 AM CDT Patient provided with turkey sandwich box, orange juice. * Brii King RN - 03/04/2025 12:[address] Tabor notified of blood sugars and in to update patient on plan of care * Oma Raymundo RN - 03/03/2025 9:48 PM CDT BG checked again, 59, provided lisa brock. Patient stated his pump is still suspended. * Kevan Tabor MD - 03/03/2025 8:46 PM CDT Emergency Department Note History of Present Illness Chief Complaint Hypoglycemia JESSY Rodriguez is a 29 year old male with a history of type I diabetes mellitus on an insulin pump presenting with hypoglycemia. The patient reports having a syncopal episode secondary to becoming hypoglycemic. Patient was visiting with his sister when the event occurred. Patient suspended his insulin pump when paramedics picked him up. In checking his insulin pump, he has not had insulin bolusother than his basal dose. Patient ate 3 hot dogs, 2 guatemalan drinks and a glass of milk at around 1615. He has been having low blood sugar intermittently for the 6 months. Rambo has passed out with hypoglycemia in the past. He denies fevers, emesis, diarrhea, vomiting, abdominal pain, chest pain or shortness of breath. Independent Historian None Review of External Notes None Past Medical History Medical History and Problem List ADHD Anxiety Depression Type I diabetes mellitus Sleep apnea Asthma Testicular torsion Gastroparesis Celiac disease Insomnia DKA Medications Albuterol Tessalon Hydroxyzine Insulin pump Vyvanse Surgical History Appendectomy Balloon sinuplasty x2 Bilateral myringotomy and tube placement Radiofrequency ablation turbinates Orchiopexy, right Ventral hernia repair Physical Exam Patient Vitals for the past 24 hrs: BP Temp Temp src Pulse Resp SpO2 03/04/25 0118 (!) 118/97 -- -- 87 -- -- 03/04/25 0030 95/51 -- -- 101 -- 92 % 03/04/25 0015 101/76 -- -- 91 24 95 % 03/04/25 0000 111/56 -- -- 97 14 97 % 03/03/25 2345 111/71 -- -- 97 11 96 % 03/03/25 2330 99/51 -- -- 92 -- 97 % 03/03/25 2315 121/66 -- -- 96 17 97 % 03/03/25 2300 119/50 -- -- 98 17 97 % 03/03/25 2247 -- -- -- 96 26 97 % 03/03/25 2245 128/61 -- -- 105 -- 95 % 03/03/25 2230 115/56 -- -- 93 26 -- 03/03/25 2220 120/53 -- -- 98 15 -- 03/03/25 2200 (!) 153/83 -- -- 111 16 -- 03/03/25 2140 (!) 141/69 -- -- 89 (!) 33 -- 03/03/25 2130 139/59 -- -- 79 21 -- 03/03/25 2120 (!) 140/68 -- -- 86 16 -- 03/03/25 2100 (!) 146/100 -- -- 89 11 -- 03/03/252044 (!) 134/100 -- -- 88 15 -- 03/03/252034 136/88 -- -- 95 17 95 % 03/03/252029 (!) 116/102 98 ??F (36.7 ??C) Oral 92 20 -- Physical Exam GENERAL: Patient well-appearing. Eating food. HEAD: Atraumatic. NECK: No rigidity CV: RRR, no murmurs, rubs or gallops PULM: CTAB with good aeration; no retractions, rales, rhonchi, or wheezing ABD: Soft, nontender, glucometer in place over the lower abdomen without signs of infection. DERM: No rash. Skin warm and dry EXTREMITY: Moving all extremities without difficulty. Diagnostics Lab Results Labs Ordered and Resulted from Time of ED Arrival to Time of ED Departure GLUCOSE BY METER - Abnormal Result Value GLUCOSE BY METER POCT 39 (*) BASIC METABOLIC PANEL - Abnormal Sodium 140 Potassium 3.5 Chloride 100 Carbon Dioxide (CO2) 28 Anion Gap 12 Urea Nitrogen 9.6 Creatinine 0.78 GFR Estimate >90 Calcium 9.0 Glucose 112 (*) GLUCOSE BY METER - Abnormal GLUCOSE BY METER POCT 59 (*) GLUCOSE BY METER - Abnormal GLUCOSE BY METER POCT 69 (*) GLUCOSE BY METER - Normal GLUCOSE BY METER POCT 98 GLUCOSE BY METER - Normal GLUCOSE BY METER POCT 85 GLUCOSE MONITOR NURSING POCT Imaging No orders to display EKG ECG interpreted by me. Time 2032 NSR at [address] No ST elevation or depression. Normal intervals. Normal axis. No evidence of WPW, Brugada, HOCM, ARVD, ASD, or Wellen's. ED Course Medications Administered Medications glucose gel 15-30 g (has no administration in time range) Or dextrose 50 % injection 25-50 mL (has no administration in time range) Or glucagon injection 1 mg (has no administration in time range) dextrose 50 % injection (50 mLs $Given 03/03/252033) Procedures Procedures Discussion of Management None ED Course ED Course as of 03/04/25 0121 Sun March 03, [id number] I obtained the history and examined the patient as noted above. Additional Documentation None Medical Decision Making / Diagnosis [facility] Diagnoses: None MIPS None [facility] Rambo Rodriguez is a 29 year old male with history of type 1 diabetes, on insulin pump, presents after hypoglycemic syncope. ECG reassuring. Vital signs overall reassuring. Was given D10 by EMS. Dexcom has been turned off and he has not received any insulin here. BMP is reassuring. He was able to eat multiple sandwiches and yogurt and crackers and juice here. Initial blood sugars were low but gradually improved and have now normalized. He feels well and ready to go home. His sister can come pick him up. I recommend he hold off on any further insulin until his blood sugar starts to rise higher. He will hold his insulin overnight and reassess in the morning. Nurse note also mentions the patient bumping his head on Tuesday. Patient had a low blood sugar on Tuesday and bumped his head. He is not on blood thinners. Once again no vomiting. He has mild sorenessto the back of the head. No difficulty moving any extremities. Do not think he requires head imaging. I had a thorough discussion with him regarding his blood sugar management at home and nutrition. I recommend that he follow-up closely with his medical records custodian [facility] did discuss following up with his PCP this week too. Discussed good food options. Overall, discussed observation versus discharge home and he prefers to go home which I think is reasonable due to his stability. He lives with family. All questions answered. Given strict return precautions. Discharged in stable condition. Disposition The patient was discharged. Diagnosis ICD-10-CM 1. Hypoglycemia E16.2 2. Syncope and collapse R55 Discharge Medications New Prescriptions No medications on file Scribe Disclosure: Lucie Arreaga, am serving as a scribe at 9:08 PM on 03/03/2025 to document services personally performed by Kevan Tabor MD based on my observations and the provider's statements to me. Kevan Tabor MD 03/04/25 0121 * Oma Raymundo RN - 03/03/2025 8:43 PM CDT Patient stated he fell on Tuesday at 0109, stated he did hit his head, regained consciousness/woke up 0800 on Tuesday. Denies being on blood thinners. Stated he does have a bump on the back of head. Patient stated he hasn't been able to go see medical records custodian, last seen in October. Next in-person appointment, scheduled for April 02. Saw provider via Telehealth on February 27. * Oma Raymundo RN - 03/03/2025 8:31 PM CDT BIBA, per EMS, BS was 24, after 250ml of D10, BS up to 120, now at 39 in ED. Patient stated he has a Dexcom closed loop system- now suspended, has been having hypoglycemia issues for the past 6 months. Triage Assessment (Adult) Row Name 03/03/252030 Triage Assessment Airway WDL WDL Respiratory WDL Respiratory WDL WDL * Guido Boothe RN - 03/03/2025 8:24 PM CDT Bed: ED31 Expected date: Expected time: Means of arrival: Comments: 29M BV3 - Hypoglycemia documented in this encounter Plan of Treatment Not on file documented as of this encounter Procedures Procedure Name Priority Date/Time Associated Diagnosis Comments GLUCOSE BY METER STAT 03/04/2025 1:44 AM CDT GLUCOSE BY METER STAT 03/04/2025 12:1 2 AM CDT GLUCOSE BY METER STAT 03/03/2025 11:1 8 PM CDT GLUCOSE BY METER STAT 03/03/2025 10:1 7 PM CDT GLUCOSE BY METER STAT 03/03/2025 9:47 PM CDT EXTRA TUBE STAT 03/03/2025 8:39 PM CDT EXTRA PURPLE TOP TUBE STAT 03/03/2025 8:39 PM CDT EXTRA GREEN TOP (LITHIUM HEPARIN) TUBE STAT 03/03/2025 8:39 PM CDT EXTRA RED TOP TUBE STAT 03/03/2025 8: 39 PM CDT EXTRA BLUE TOP TUBE STAT 03/03/2025 8 :39 PM CDT BASIC METABOLIC PANEL STAT 03/03/2025 8:39 PM CDT EKG 12-LEAD, TRACING ONLY STAT 03/03/2025 8:33 PM CDT GLUCOSE BY METER STAT 03/03/2025 8:27 PM CDT documented in this encounter Results * (ABNORMAL) Glucose by meter (03/04/2025 1:44 AM CDT) GLUCOSE BY METER POCT 118(H) 70 - 99 mg/dL 03/04/2025 1:51 AM CDT LABORATORY POC Blood, Capillary BLOOD SPECIMEN / Unknown 03/04/2025 1:44 AM CDT 03/04/2025 1:51 AM CDT us Kevan Tabor MD LAB - BEAKER POCT Final Result LABORATORY POC [facility] [address] [facility] Lab (1st floor, no room number) [place] [address] * Glucose by meter (03/04/2025 12:12 AM CDT) GLUCOSE BY METER POCT 85 70 - 99 mg/dL 03/04/2025 12:19 AM CDT [facility] LABORATORY POC Comment:Dr/RN Notified Blood, Capillary BLOOD SPECIMEN / Unknown 03/04/2025 12:12 AM CDT 03/04/2025 12:19 AM CDT us Kevan KNOX - BEAKER POCT Final Result LABORATORY [facility] [address] Lab (1st floor, no room number) [address] * Glucose by meter (03/03/2025 11:18 PM CDT) GLUCOSE BY METER POCT 98 70 - 99 mg/dL 03/03/2025 11:25 PM CDT LABORATORY POC Blood, Capillary BLOOD SPECIMEN / Unknown 03/03/2025 11:18 PM CDT 03/03/2025 11:25 PM CDT us Kevan KNOX - BEAKER POCT Final Result Performing Organization Address City/[facility]/ZIP Co de Phone Number LABORATORY [facility] [address] Lab (1st floor, no room number) [address] * (ABNORMAL) Glucose by meter (03/03/2025 10:17 PM CDT) GLUCOSE BY METER POCT 69(L) 70 - 99 mg/dL 03/03/2025 10:23 PM CDT LABORATORY POC Blood, Capillary BLOOD SPECIMEN / Unknown 03/03/2025 10:17 PM CDT 03/03/2025 10:23 PM CDT us Kevan KNOX - ROBINAKER POCT Final Result LABORATORY [facility] [address] Lab (1st floor, no room number) [address] [place] [address] * (ABNORMAL) Glucose by meter (03/03/2025 9:47 PM CDT) GLUCOSE BY METER POCT 59(L) 70 - 99 mg/dL 03/03/2025 9:53 PM CDT LABORATORY POC Blood, Capillary BLOOD SPECIMEN / Unknown 03/03/2025 9:47 PM CDT 03/03/2025 9:53 PM CDT us Kevan Tabor MD LAB - BEAKER POCT Final Result LABORATORY POC [facility] [address] Lab (1st floor, no room number) [place] [address], [facility] * (ABNORMAL) Basic metabolic panel (03/03/2025 8:39 PM CDT) Sodium 140 135 - 145 mmol/L 03/03/2025 9:35 PM CDT LABORATORY Potassium 3.5 3.4 - 5.3 mmol/L 03/03/2025 9:35 PM CDT LABORATORY Chloride 100 98 - 107 mmol/L 03/03/2025 9:35 PM CDT LABORATORY Carbon Dioxide (CO2) 28 22 - 29 mmol/L 03/03/2025 9:35 PM CDT LABORATORY Anion Gap 12 7 - 15 mmol/L 03/03/2025 9:35 PM CDT LABORATORY Urea Nitrogen 9.6 6.0 - 20.0 mg/dL 03/03/2025 9:35 PM CDT LABORATORY Creatinine 0.78 0.67 - 1.17 mg/dL 03/03/2025 9:35 PM CDT LABORATORY GFR Estimate >90 >60 mL/min/1.7 3m2 03/03/2025 9:35 PM CDT LABORATORY Comment:eGFR calculated usky 2020 CKD-EPI equation. Calcium 9.0 8.8 - 10.4 mg/dL 03/03/2025 9:35 PM CDT LABORATORY Glucose 112(H) 70 - 99 mg/dL 03/03/2025 9:35 PM CDT LABORATORY Blood BLOOD SPECIMEN / Unknown Venipuncture / Unknown 03/03/2025 8:39 PM CDT 03/03/2025 8:49 PM CDT us Kevan Tabor MD LAB - BLOOD ORDERABLES Final Res ult LABORATORY [facility] [address] Lab (1st floor, no room number) [place] [phone] * Extra Purple Top Tube (03/03/2025 8:39 PM CDT) Hold Specimen [facility] 03/03/2025 10:01 PM CDT RH LABORATORY Blood BLOOD SPECIMEN / Unknown Venipuncture / Unknown 03/03/2025 8:39 PM CDT 03/03/2025 8:49 PM CDT us Kevan Tabor MD LAB - BLOOD ORDERABLES Final Res ult [facility] Lab [address] Lab (1st floor, no room number) [address] * Extra Green Top (Catlett Heparin) Tube (03/03/2025 8:39 PM CDT) Hold Specimen [facility] 03/03/2025 10:01 PM CDT RH LABORATORY Blood BLOOD SPECIMEN / Unknown Venipuncture / Unknown 03/03/2025 8:39 PM CDT 03/03/2025 8:49 PM CDT us Kevan Tabor MD LAB - BLOOD ORDERABLES Final Res ult Performing Organization Address City/[facility]/ZIP Co de Phone Number [facility] Lab [address] Lab (1st floor, no room number) [address] * Extra Red Top Tube (03/03/2025 8:39 PM CDT) Hold Specimen [facility] 03/03/2025 10:01 PM CDT RH LABORATORY Blood BLOOD SPECIMEN / Unknown Venipuncture / Unknown 03/03/2025 8:39 PM CDT 03/03/2025 8:49 PM CDT us Kevan Tabor MD LAB - BLOOD ORDERABLES Final Res ult [facility] Lab [address] [employer] Lab (1st floor, no room number) [place] [id number] * Extra Blue Top Tube (03/03/2025 8:39 PM CDT) Hold Specimen [facility] 03/03/2025 10:01 PM CDT LABORATORY Blood BLOOD SPECIMEN / Unknown Venipuncture / Unknown 03/03/2025 8:39 PM CDT 03/03/2025 8:49 PM CDT us Kevan Tabor MD LAB - BLOOD ORDERABLES Final Res ult LABORATORY [facility] Lab [address] [place] Lab (1st floor, no room number) [place] [id number] [place] [address] * EKG 12-lead, tracing only (03/03/2025 8:33 PM CDT) Systolic Blood Pressure mmHg RADIOLOGY RESULTS Diastolic Blood Pressure mmHg RADIOLOGY RESULTS Ventricular Rate 80 BPM RAD IOLOGY RESULTS Atrial Rate 80 BPM RADIOLOG Y RESULTS MA Interval 124 ms RADIOLOG Y RESULTS QRS Duration 96 ms RADIOLO GY RESULTS QT 400 ms RADIOLOGY RESULTS QTc 461 ms RADIOLOGY RESULTS P [place] 43 degrees RADIOLOGY RESULTS R AXIS 26 degrees RADIOLOGY RESULTS T [place] 58 degrees RADIOLOGY RESULTS Interpretation ECG Sinus rhythm Normal ECG When compared with ECG of 14-Feb-2022 20:35, Vent. rate has decreased by 53 bpm Borderline criteria for Anterior infarct are no longer Present Borderline criteria for Anterolateral infarct are no longer Present Borderline criteria for Inferior infarct are no longer Present Unconfirmed report - interpretation of this ECG is computer generated - see medical record for final interpretation Confirmed by - EMERGENCY ROOM, PHYSICIAN ([id number]), editor publications Owen Barba ([id number]) on 03/05/2025 7:42:32 AM RADIOLOGY RESULTS 03/03/2025 8:33 PM CDT 03/05/2025 7:42 AM CDT us Jennifer Lora MD ECG ORDERABLES Edited Result - Final RADIOLOGY RESULTS * (ABNORMAL) Glucose by meter (03/03/2025 8:27 PM CDT) GLUCOSE BY METER POCT 39(LL) 70 - 99 mg/dL 03/03/2025 8:45 PM CDT RH LABORATORY POC Blood, Capillary BLOOD SPECIMEN / Unknown 03/03/2025 8:27 PM CDT 03/03/2025 8:45 PM CDT us Provider Unknown LAB - BEAKER POCT Final Result [facility] LABORATORY POC [facility] [address] [facility] Lab (1st floor, no room number) [place] [address], [facility] documented in this encounter Visit Diagnoses Diagnosis Hypoglycemia Hypoglycemia, unspecified Syncope and collapse documented in this encounter Administered Medications Inactive Administered Medications - up to 3 most recent administrations Medication Order MAR Action Action Date Dose Rate Site dextrose 50 % injection 25-50 mL 25-50 mL, Intravenous, EVERY 15 MIN PRN, low blood sugar, Administer over 1-5 Minutes, Starting on Tue03/03/25 at 2036, Use if have IV access, BG less than 70 mg/dL and meet dose criteria below: Dose if conscious and alert (or disorientated) and NPO = 25 mL Dose if unconscious / not alert = 50 mL Give first dose for initial blood glucose less than 70 mg/dL. If blood glucose at 15 minute recheck is less than or equal to 80 mg/dL continue to administer carbohydrate treatment every 15 minutes, as needed, based on blood glucose and assessment parameters until blood glucose level is above 80 mg/dL x 2 consecutive 15 minute checks. dextrose 50 % injection Starting on Tue03/03/25 at 2030, For 1 dose, [place] Cantu: melissainet override $Given 03/03/2025 8:34 PM CDT 50 mLs glucagon injection 1 mg 1 mg, Subcutaneous, EVERY 15 MIN PRN, low blood sugar, May repeat x 1 only, Starting on Tue03/03/25 at 2036, May give SQ or IM. ONLY use glucagon IF patient has NO IV access AND is UNABLE to swallow AND blood glucose is LESS than or EQUAL to 50 mg/dL. glucose gel 15-30 g 15-30 g, Oral, EVERY 15 MIN PRN, low blood sugar, Starting on 03/03/25 at 2036, Give first dose for initial blood glucose less than 70 mg/dL per the dosing instructions below. If blood glucose at 15 minute rechecks is still less than or equal to 80 mg/dL, continue to administer doses per blood glucose parameters every 15 minutes, as needed, until blood glucose level is at or above 80 mg/dL x 2 consecutive 15 minute checks. Dosing Instructions: ~If patient is conscious and able to swallow and NO enteral tube For initial BG 51-69mg/dL OR 15 minute recheck BG 51- 80 mg/dL - give 15 g For BG less than or equal to 50 mg/dL - give 30 g ~ If Enteral tube For initial BG 51-69mg/dL OR 15 minute recheck BG 51- 80 mg/dL - give apple juice 120 mL (4 oz or 15 g of CHO) via enteral tube For BG less than or equal to 50 mg/dL - Give apple juice 240 mL (8 oz or 30 g of CHO) via enteral tube ~Oral gel is preferable for conscious and able to swallow patient. ~IF gel unavailable or patient refuses may provide apple juice per Enteral tube dosing instructions. Document juice on I and O flowsheet. documented in this encounter Active and Recently Administered Medications Times are shown in CDT. PRN Medication Order 03/02/2025 03/03/2025 03/04/2025 dextrose 50 % injection 25-50 mL(Linked Group 1) 25-50 mL, Intravenous, EVERY 15 MIN PRN, low blood sugar, Administer over 1-5 Minutes, Starting on Tue03/03/25 at 2036, Use if have IV access, BG less than 70 mg/dL and meet dose criteria below: Dose if conscious and alert (or disorientated) and NPO = 25 mL Dose if unconscious / not alert = 50 mL Give first dose for initial blood glucose less than 70 mg/dL. If blood glucose at 15 minute recheck is less than or equal to 80 mg/dL continue to administer carbohydrate treatment every 15 minutes, as needed, based on blood glucose and assessment parameters until blood glucose level is above 80 mg/dL x 2 consecutive 15 minute checks. glucagon injection 1 mg(Linked Group 1) 1 mg, Subcutaneous, EVERY 15 MIN PRN, low blood sugar, May repeat x 1 only, Starting on 03/03/25 at 2036, May give SQ or IM. ONLY use glucagon IF patient has NO IV access AND is UNABLE to swallow AND blood glucose is LESS than or EQUAL to 50 mg/dL. glucose gel 15-30 g(Linked Group 1) 15-30 g, Oral, EVERY 15 MIN PRN, low blood sugar, Starting on Tue03/03/25 at 2036, Give first dose for initial blood glucose less than 70 mg/dL per the dosing instructions below. If blood glucose at 15 minute rechecks is still less than or equal to 80 mg/dL, continue to administer doses per blood glucose parameters every 15 minutes, as needed, until blood glucose level is at or above 80 mg/dL x 2 consecutive 15 minute checks. Dosing Instructions: ~If patient is conscious and able to swallow and NO enteral tube For initial BG 51-69mg/dL OR 15 minute recheck BG 51- 80 mg/dL - give 15 g For BG less than or equal to 50 mg/dL - give 30 g ~ If Enteral tube For initial BG 51-69mg/dL OR 15 minute recheck BG 51- 80 mg/dL - give apple juice 120 mL (4 oz or 15 g of CHO) via enteral tube For BG less than or equal to 50 mg/dL - Give apple juice 240 mL (8 oz or 30 g of CHO) via enteral tube ~Oral gel is preferable for conscious and able to swallow patient. ~IF gel unavailable or patient refuses may provide apple juice per Enteral tube dosing instructions. Document juice on I and O flowsheet. No Frequency Medication Order 03/02/2025 03/03/2025 03/04/2025 dextrose 50 % injection (COMPLETED) Starting on Tue03/03/25 at 2030, For 1 dose, [place] Cantu M: cabinet override 2033 ($Given - Provider: Oma Raymundo RN) Linked Groups Order Group 1: glucose gel 15-30 gJump to med 15-30 g, Oral, EVERY 15 MIN PRN, low blood sugar, Starting on Tue03/03/25 at 2036, Give first dose for initial blood glucose less than 70 mg/dL per the dosing instructions below. If blood glucose at 15 minute rechecks is still less than or equal to 80 mg/dL, continue to administer doses per blood glucose parameters every 15 minutes, as needed, until blood glucose level is at or above 80 mg/dL x 2 consecutive 15 minute checks. Dosing Instructions: ~If patient is conscious and able to swallow and NO enteral tube For initial BG 51-69mg/dL OR 15 minute recheck BG 51- 80 mg/dL - give 15 g For BG less than or equal to 50 mg/dL - give 30 g ~ If Enteral tube For initial BG 51-69mg/dL OR 15 minute recheck BG 51- 80 mg/dL - give apple juice 120 mL (4 oz or 15 g of CHO) via enteral tube For BG less than or equal to 50 mg/dL - Give apple juice 240 mL (8 oz or 30 g of CHO) via enteral tube ~Oral gel is preferable for conscious and able to swallow patient. ~IF gel unavailable or patient refuses may provide apple juice per Enteral tube dosing instructions. Document juice on I and O flowsheet. Or dextrose 50 % injection 25-50 mLJump to med 25-50 mL, Intravenous, EVERY 15 MIN PRN, low blood sugar, Administer over 1-5 Minutes, Starting on Tue03/03/25 at 2036, Use if have IV access, BG less than 70 mg/dL and meet dose criteria below: Dose if conscious and alert (or disorientated) and NPO = 25 mL Dose if unconscious / not alert = 50 mL Give first dose for initial blood glucose less than 70 mg/dL. If blood glucose at 15 minute recheck is less than or equal to 80 mg/dL continue to administer carbohydrate treatment every 15 minutes, as needed, based on blood glucose and assessment parameters until blood glucose level is above 80 mg/dL x 2 consecutive 15 minute checks. Or glucagon injection 1 mgJump to med 1 mg, Subcutaneous, EVERY 15 MIN PRN, low blood sugar, May repeat x 1 only, Starting on Tue03/03/25 at 2036, May give SQ or IM. ONLY use glucagon IF patient has NO IV access AND is UNABLE to swallow AND blood glucose is LESS than or EQUAL to 50 mg/dL. documented in this encounter Care Teams Medical Staff Credentialing Coordinator Relationship Specialty Start Date End Date Chance Saxena MD [facility] [address] [place] [address] PCP - General Family Practice 08/04/17 documented as of this encounter
[2025-03-07] VITALS (9 sets, daily range): BP systolic 126–157; BP diastolic 72–98; PULSE 84–115; RESP 18–30; TEMP 36.4–36.8; O2SAT 90–94; BMI 62.3; BMI 61.2
[2025-03-07] MEDS: 10 % DEXTROSE 500 ML 250 ML 1000 ML IV (07:05)
[2025-03-07] MEDS: DEXTROSE 50 % SYRINGE IVP ×2 (07:05→07:28)
[2025-03-07] MEDS: GLUCAGON,HUMAN RECOMBINANT 1 MG/ML VIAL IM (07:23)
--- NOTE | 2025-03-07 07:39 | CRLHL7_ITS ---
For Patients: As a result of the Cures Act, medical imaging exams and procedure reports are released immediately into your electronic medical record. You may view this report before your referring provider. If you have questions, please contact your health care provider. INDICATION: Cough and chest congestion COMPARISON: October 12, 2024 TECHNIQUE: PA and lateral views of the chest were acquired FINDINGS: TUBES AND LINES: None. HEART AND MEDIASTINUM: The heart size is normal. The mediastinal contour appears normal for patient age. LUNGS AND PLEURAL SPACES: The lungs appear normal.The pleural spaces are unremarkable. OSSEOUS STRUCTURES: Age-appropriate appearance. No acute focal finding. IMPRESSION: No evidence of active pulmonary disease. Dictated by Torin Herrera MD @ 03/07/2025 8:06:54 AM (Electronically Signed)
--- NOTE | 2025-03-07 07:39 | CRLHL7_ITS ---
For Patients: As a result of the Century Cures Act, medical imaging exams and procedure reports are released immediately into your electronic medical record. You may view this report before your referring provider. If you have questions, please contact your health care provider. INDICATION: FALLS. HIT HEAD. (Sic) COMPARISON: None available. TECHNIQUE: CT of the head without intravenous contrast. Please note that all CT scans at this facility use dose modulation, iterative reconstruction, and/or weight-based dosing when appropriate to reduce radiation dose to as low as reasonably achievable. FINDINGS: No acute traumatic injury is identified. No acute infarct. No intracranial mass or mass effect. No intracranial hemorrhage. No hydrocephalus. RapidAI ASPECTS Score: Not performed/available at the time of dictation. Intact skull base and cranial vault. Visualized orbits are without significant incidental findings. Incidental small right maxillary sinus retention cysts along the medial wall. The visualized paranasal sinuses and mastoid air cells are otherwise clear. Unremarkable soft tissues. IMPRESSION: 1. No acute traumatic injury is identified. 2. No significant incidental findings. 3. Additional findings as above. Please note that all CT scans at this facility use dose modulation, iterative reconstruction, and/or weight-based dosing when appropriate to reduce radiation dose to as low as reasonably achievable. Dictated by Leodan Jackson MD @ 03/07/2025 8:07:48 AM (Electronically Signed)
--- NOTE | 2025-03-07 07:52 | ED_ITS ---
HPI - General Adult General Chief complaint: Diabetic Related Problem Stated complaint: feels like possible pneumonia Time Seen by Provider: 03/07/25 07:34 History of Present Illness HPI narrative: Patient c/o low blood sugars last night with multiple falls , head injury, loss of consciousness, and productive cough, feeling hot/cold. Patient is Type I with a CGM/ Insulin pump combination - pump has been shut off and is now disconnected. Patient's CMG showed 87 upon arrival and is down to 67 ten minutes later in triage. Patient's mother states the patient becomes combative with low sugars. MD notified. Patient given oral glucose, a juice and sandwich in room. 29-year-old man presenting to the emergency department accompanied by his mother with concern of persistent hypoglycemia. This has been going on for at least 12 hours. Mom notes that he tends to get combative his blood sugars get low. Have been down in the 40s. Has continuous glucose monitoring. She is no longer comfortable managing this in is just not improving; gets combative when blood sugars get low. Does have a history of type 1 diabetes with insulin pump of Humalog. They have shut it off. There have been falls as well. Sounds like he has hit his head. Later describing the right periauricular area. There has been loss of consciousness. Has been coughing. Productive of green sputum he says. Is not complaining of any pain. Has had low blood sugars with illness before. Has also experienced DKA in the setting of strep throat. This sounds like was a reaction to the penicillin says. I believe has received 3 doses of glucagon from home injector during this time period. I ask them yet to disconnect the pump. Rare alcohol ingestion. Does use marijuana and when he does it is usually before bed to help with what sounds like peripheral neuropathy; feels like ants crawling. Denies other substances. With later review of records was admitted in October of this year with apparently malfunctioning insulin pump. This was resolved with disconnecting the pump it appears. Was restarted at a decreased rate. Also required moving continuous glucose monitoring site for better accuracy. At the time of this admission had a pneumonia with RSV. Current insulin is dosed from the pump at basal 1.5 units/hour adjusting from 1- 40 units plus carb counting Related Data Home Medications ?Medication ?Instructions ?Recorded ?Confirmed albuterol sulfate 90 mcg/actuation 2 puff inhalation Q 4H PRN wheezing 10/12/24 10/12/24 aerosol inhaler (Ventolin HFA) glucagon 1 mg/0.2 mL subcutaneous 1 mg subcut DAILY WV N 10/12/24 10/12/24 auto-injector (Gvoke HypoPen 1-Pack) insulin lispro 200 unit/mL (3 mL) 0 - 200 unit subcut DAILY 10/12/24 10/12/24 subcutaneous pen (Humalog KwikPen U-200 Insulin) lisdexamfetamine 40 mg capsule 40 mg PO QAM 10/12/24 0 10/12/24 Allergies Allergy/AdvReac Type Severity Reaction Status Date / Time Penicillins Allergy Severe Anaphylaxis Verified 10/12/24 15:27 metformin Allergy Intermediate Vomiting Verified 10/12/24 15:27 mri contrast Allergy Severe Anaphylaxis Uncoded 10/12/24 15:27 Review of Systems Status of ROS: Reports: 6 or more systems reviewed and unremarkable except as noted in History and below [facility] Medical History Gastroparesis ?K31.84 - Gastroparesis (ICD-10) Attention deficit disorder ?F98.8 - Other specified behavioral and emotional disorders with onset usually occurring in childhood and adolescence (ICD-10) Morbid obesity ?E66.01 - Morbid (severe) obesity due to excess calories (ICD-10) Pneumonia due to respiratory syncytial virus (RSV) ?J12.1 - Respiratory syncytial virus pneumonia (ICD-10) Type 1 diabetes mellitus ?E10.9 - Type 1 diabetes mellitus without complications (ICD-10) Surgical History H/O ventral hernia repair ?Z98.890 - Other specified postprocedural states (ICD-10) ?Z87.19 - Personal history of other diseases of the digestive system (ICD-10) History of unilateral orchiectomy ?Z90.79 - Acquired absence of other genital organ(s) (ICD-10) History of esophagogastroduodenoscopy (EGD) ?Z98.890 - Other specified postprocedural states (ICD-10) History of laparoscopic appendectomy ?Z90.49 - Acquired absence of other specified parts of digestive tract (ICD- 10) Family History Mother Asthma Sister Depression Father Coronary artery disease Social History Narrative: He lives with his mother. He works at [employer]. He vapes nicotine. He occasionally smokes cannabis. He does not drink alcohol. What is your current living situation?: I presently have a place to live Problems where you live: no known problems Problems where you live details: NA In the past 12 months, utilities in danger of being shut off: no In past 12 months, lack of transportation kept you from medical appts, meetings, work, or getting things needed for daily living: no In the past 12 mos, have been you worried that your food would run out before you had money to buy more?: never true In the past 12 mos, the food you bought just didn't last and you didn't have money to buy more?: never true Highest level of school completed/degree received: Associate degree: occupational, technical, vocational program Smoking Status: Current every day smoker Do you use any of these nicotine containing products: Vaping Products How often do you have a drink containing alcohol: never AUDIT-C Alcohol total score: 0 Non-prescribed substance use: marijuana (any form) Non-prescribed substance use details: On occasion Caffeine: Yes How often does anyone, including family, friends and others, physically hurt you : never How often does anyone, including family, friends and others, insult or talk down to you: never How often does anyone, including family, friends and others, threaten you with harm: never How often does anyone, including family, friends and others, scream or curse at you: never service: No Exam Narrative: Exam Narrative: Pleasant. Obese. Breathing easily. Becomes diaphoretic less alert as we have been attempting to place IV lines and then a little resistant to cares. Subsequently assisted by Anesthesia. Ultimately nursing finally obtained one in the right hand. On later exam has a thick head of hair. Hard for me does appreciate the bump that he is mentioning above right ear. Oropharynx is with dry dentition. Lungs appear to be clear. Does sound congested in the nasopharynx. No facial swelling or erythema but a little tender across the maxillary sinuses. Heart is in elevated rate regular rhythm. Abdomen is obese soft. Nontender. Nipple piercings are without inflammation. Some bruising in the low abdomen consistent with movement of monitoring site. Well-perfused peripherally. Feet are without lesions. Tattoos bilateral forearms. The pump site is the left buttock. No inflammatory changes surrounding this. Monitor is on the right low abdomen. No inflammatory changes here either. Const: Vital Signs, click to edit/add: Vital Signs - 24 hr 03/07/25 07:02 Temperature 97.6 F Pulse Rate [Left P ulse Oximeter] 115 H Respiratory Rate 20 Blood Pressure [Ri ght Forearm] 157/98 H Pulse Oximetry 93 Oxygen Delivery Me thod Room Air Documenting provider has reviewed patient's vital signs: yes Course Vital Signs Vital signs: Initial Vital Signs Temperature 97.6 F 03/07/25 07:02 Temperature Source Temporal Artery Scan 03/07/25 07:02 Pulse Rate 115 H 03/07/25 07:02 Respiratory Rate 20 03/07/25 07:02 Blood Pressure 157/98 H 03/07/25 07:02 Blood Pressure Mean 117 H 03/07/25 07:02 Blood Pressure Position Sitting 03/07/25 07:02 Pulse Oximetry 93 03/07/25 07:02 Oxygen Delivery Method Room Air 03/07/25 07:02 Vital Signs Temperature 97.6 F 03/07/25 07:02 Pulse Rate 115 H 03/07/25 07:02 Respiratory Rate 20 03/07/25 07:02 Blood Pressure 157/98 H 03/07/25 07:02 Pulse Oximetry 93 03/07/25 07:02 Oxygen Delivery Method Room Air 03/07/25 07:02 Temperature 97.6 F 03/07/25 07:02 Pulse Rate 115 H 03/07/25 07:02 Respiratory Rate 20 03/07/25 07:02 Blood Pressure 157/98 H 03/07/25 07:02 Pulse Oximetry 93 03/07/25 07:02 Oxygen Delivery Method Room Air 03/07/25 07:02 Medications Administered Medications: Discontinued Medications Generic Name Dose Route Start Last Admin Trade Name Freq PRN Reason Stop Dose Admin Dextrose 25 gm 03/07/25 07:38 03/07/25 07:05 Dextrose 50 % Syringe IVP 03/07/25 07:39 25 gm ONCE ONE Administration Dextrose 25 gm 03/07/25 07:38 03/07/25 07:28 Dextrose 50 % Syringe IVP 03/07/25 07:39 25 gm ONCE ONE Administration Glucagon 1 mg 03/07/25 07:36 03/07/25 07:23 Glucagon,Human Recombinant 1 Mg/Ml Vial IM 03/07/25 07:37 1 mg ONCE ONE Administration Dextrose 250 mls @ 1,000 mls/hr 03/07/25 07:34 03/07/25 08:30 10 % Dextrose 500 Ml IV 03/07/25 07:48 Infused .Q15M ONE Infusion Dextrose 250 mls @ 500 mls/hr 03/07/25 08:45 03/07/25 08:48 10 % Dextrose 500 Ml IV 03/07/25 09:14 500 mls/hr .Q30M ONE Administration Ondansetron HCl 4 mg 03/07/25 07:36 03/07/25 08:15 Ondansetron 2 Mg/Ml Inj IVP 03/07/25 07:37 4 mg ONCE ONE Administration Medical Decision Making MDM Narrative Medical decision making narrative: During attempts to place IV was given orange juice, oral glucose, juice boxes of apple juice and orange/tangerine, a little Sprite. Has not managed the sandwich yet. Has become more nauseated given Zofran. With 1 initial line placement was able to give an amp of D50. Once IV was established bolused another amp of D50 and initiated on D10 fusion. At this point will look for source of infection with chest x-ray. With falls and loss of consciousness, head CT as well. Labs and urine. Along with oral intake bolus of D10 of 300 mL brings blood sugar as high is about 288 but then he begins dropping again to 250 shortly after that. Will continue they D10 at 250 mL an hour for now. Two-view chest x-ray and head CT independent reviewed by me looks to be without any acute abnormality. Will need to be admitted for continued monitoring. Labs are still pending. White count though does return a little over 19,000. Unclear if this is infection or stress response. With elevated blood sugars does not appear to be particularly unwell. Appears to have a head cold and possible sinusitis. I did discuss with our hospitalist who is thankfully accepting for admission 0830 -- blood sugar is now around 160 and dropping. This has happened over 20 minutes or so in spite of all as above. Will increase D10 to 500 mL an hour. Continue with continuous glucose monitoring. Blood sugar in lab was measured at 30 when when I believe his continuous monitoring was measuring 45 or 50 Medical Records Medical records reviewed: Yes I reviewed the patient's medical records Lab Data Labs: Lab Results 03/07/25 Range/Units 07:32 WBC 19.73 H (4.50-11.00) K/uL RBC 5.29 (4.30-5.90) m/uL Hgb 14.1 (13.5-17.5) gm/dL Hct 46.9 (37.0-53.0) % MCV 89 (80-100) fL MCH 27 (26-34) pg MCHC 30 L (32-36) gm/dL RDW Coeff of Andre 14.1 (11.5-15.5) % Plt Count 314 (140-440) K/uL Neut % (Auto) 89.4 H (42.0-72.0) % Lymph % (Auto) 5.4 L (20-44) % Montgomery % (Auto) 4.0 (0.0-11.0) % Eos % (Auto) 0.6 (0.0-7.0) % Baso % (Auto) 0.2 (0.0-3.0) % Neut # (Auto) 17.60 H (1.7-7.0) K/uL Lymph # (Auto) 1.10 (0.90-2.90) K/uL Montgomery # (Auto) 0.80 (0.00-0.90) K/UL Eos # (Auto) 0.10 (0.00-0.50) K/uL Baso # (Auto) 0.00 (0.00-0.30) K/uL Abs Immat Gran (auto) 0.10 (0.00-0.30) K/uL Imm/Tot Granulo (auto) 0.4 % Sodium 141 (135-149) mmol/L Potassium 3.9 (3.6-5.1) mmol/L Chloride 101 (96-114) mmol/L Carbon Dioxide 32 (20-32) mmol/L Anion Gap 8 (7-15) mEq/L BUN 15 (5-24) mg/dL Creatinine 0.6 (0.5-1.5) mg/dL Estimated Creat Clear 171.37 Estimated GFR 135 ml/min Glucose 30 L* (60-115) mg/dL Calcium 9.0 (8.4-10.6) mg/dL C-Reactive Protein 0.8 (0.5-1.0) mg/dL Ethyl Alcohol < 0.01 (0.01-0.03) % Critical Care Time Critical Care Time Critical Care Time: Yes Attestation: The patient required my highest level preparedness to intervene emergently and I personally spent this critical care time directly and personally managing the patient. This critical care time included: Obtaining a history; Examining the patient; Pulse oximetry; Ordering and reviewing of studies; Arranging urgent treatment with development of a management plan; Evaluation of patients response to treatment; Frequent reassessment discussions with other providers. This critical care time was performed to assess and manage the high probability of imminent life-threatening deterioration that could result in multiorgan failure. It was exclusive of separate billable procedures and treating other patients and teaching time. Total Critical Care Time in Minutes: 75 Discharge Plan Discharge Clinical Impression: Hypoglycemia, Altered mental status Patient Disposition: Admitted As Observation Condition: Guarded
[2025-03-07 08:04] LABS: Basophils Percent Auto 0.2 % (0.0-3.0); Eosinophils Percent Auto 0.6 % (0.0-7.0); Hematocrit 46.9 % (37.0-53.0); Hemoglobin* 14.1 gm/dL (13.5-17.5); Immature Granulocytes Pct Auto 0.4 %; Lymphocytes Percent Auto 5.4 % (20-44); Mean Corpuscular HGB Conc 30 gm/dL (32-36); Mean Corpuscular Hemoglobin 27 pg (26-34); Mean Corpuscular Volume 89 fL (80-100); Neutrophils Percent Auto 89.4 % (42.0-72.0); Platelet Count* 314 K/uL (140-440); RDW Coefficient of Variation % 14.1 % (11.5-15.5); Red Blood Count 5.29 m/uL (4.30-5.90); White Blood Count* 19.73 K/uL (4.50-11.00)
[2025-03-07 08:08] LABS: Slide Review Reflex No
[2025-03-07 08:13] LABS: Carbon Dioxide* 32 mmol/L (20-32)
[2025-03-07] MEDS: ONDANSETRON 2 MG/ML inj 4 MG IVP (08:15)
[2025-03-07 08:16] LABS: C Reactive Protein* 0.8 mg/dL (0.5-1.0)
--- OUTSIDE RECORDS SUMMARY | 2025-03-07 08:18 | XMS_ITS | Encounter Summary ---
Author Organization [place] Address [address] [facility] [place] [address] Care Team Providers Care Pelt Grader Name Role Phone Chance Saxena MD Primary Care Provider [phone] Reason for Visit * Reason Onset Date Comments MH/CD Inpatient 03/20/2019 Encounter Details Date Type Department Care Team ([facility] Contact Info) Description 03/20/2019 Telephone [facility] Behavioral Health Intake [address] [place] [phone] Generic, Behavioral Intake, MH/CD Inpatient Social History Tobacco Use Types Packs/Day Years Used Date Smoking Tobacco: Some Days Cigarettes Smokeless Tobacco: Never Comments:About 6 cigarettes a week Alcohol Use Standard Drinks/Week Comments Yes 0 (1 standard drink = 0.6 oz pur e alcohol) vodka- occ Sex and Gender Information Value Date Recorded Sex Assigned at Not on file Legal Sex Male 3:41 AM ORDER DISPATCHER Gender Identity Not on file Sexual Orientation [...] will need regular insulin around breakfast time. door tender provider requesting ketoacidosis labs and wants blood sugar to be rechecked. Needs to be under 300 before accepted to the unit. ED notified at 0108. Glucose @ [phone] Creatinine 0.57 R: door tender notified of lab results and accepts. 4A/Ricky. [...] documented as of this encounter Care Teams Pelt Grader Relationship Specialty Start Date End Date Chance Saxena MD [facility] [address] [place] [address] PCP - General Family Practice 08/04/17 documented as of this encounter
--- OUTSIDE RECORDS SUMMARY | 2025-03-07 08:18 | XMS_ITS | Encounter Summary ---
Author Organization [place] Address [address] [facility] [place] [place] [address] Care Team Providers Care Bending Machine Set Up Operator Name Role Phone Chance Saxena MD Primary Care Provider [phone] Encounter Details Date Type Department Care Team [...] on file Legal Sex Male 3:41 AM ENGAGEMENT MGR Gender Identity Not on file Sexual Orientation Not on file COVID-19 Exposure Response Date Recorded In the last 10 days, have yo u been in contact with someone who was confirmed or suspected to have Coronavirus/COVID-19? No / Unsure 07/11/2023 4:09 PM CDT documented as of this encounter Plan of Treatment Not on file documented as of this encounter Visit Diagnoses Not on filedocumented in this encounter Additional Health Concerns Infection Onset Date Last Indicated Resolved Time Rule Out COVID-19 07/15/2021 07/15/2021 07/15/2021 12:51 PM CDT Rule Out COVID-19 02/14/2022 02/14/2022 02/14/2022 11:02 PM CDT documented as of this encounter Care Teams Bending Machine Set Up Operator Relationship Specialty Start Date End Date Chance Saxena MD [facility] [address] [place] [address] PCP - General Family Practice 08/04/17 documented as of this encounter
--- OUTSIDE RECORDS SUMMARY | 2025-03-07 08:18 | XMS_ITS | Encounter Summary ---
Author Organization [facility] Address [address], [place] [address] Care Team Providers Care Bale Sewer Name Role Phone Yung Rodriguez MD Primary Care Provider [phone] Encounter Details Date Type Department Care Team (Late st Contact Info) Description 08/19/2014 Consent for Procedure/Treatme nt [facility] INFORMED CONSENT RECORD Social History Tobacco Use Types Packs/Day Years Used Date Smoking Tobacco: Never Assessed Sex and Gender Information Value Date Recorded Sex Assigned at Not on file Legal Sex Male 5:06 AM CDT Gender Identity Not on file Sexual Orientation Not on file documented as of this encounter Plan of Treatment Not on file documented as of this encounter Visit Diagnoses Not on filedocumented in this encounter Care Teams Bale Sewer Relationship Specialty Start Date End Date Yung Rodriguez MD [facility] [address] [place] [address] PCP - General Pediatric Medicine 08/19/14 documented as of this encounter
--- OUTSIDE RECORDS SUMMARY | 2025-03-07 08:19 | XMS_ITS | Clinical Summary ---
Author Organization [facility] Address [address] [place] [address] Care Team Providers Care Early Childhood Special Educator Name Role Phone Chance Saxena MD Primary Care Provider DarapRom mena MD Unavailable [phone] ShannaPatsy vazquez RN Unavailable [phone] Allergies Active Allergy Reactions Criticality Noted Date Comments Iodinated Contrast Media Anaphylaxis,Hives,S hortness Of Breath High 09/21/2021 Metformin GI Upset 01/03/2017 Diarrhea and abdominal pain Penicillin G Hives 07/31/2011 Diabetic ketoacidosis Penicillins Hives 03/27/2010 Medications Cetirizine (ZYRTEC) 10 mg Cap Take by mouth. 0 03/27/20 10 Active albuterol (PROVENTIL) 0.083 % neb solutionIndicatio ns:Exacerbation of asthma, unspecified asthma severity, unspecified whether persistent (HC) 3 mL every 4 hours if needed. 60 Neb 11 09/05/20 17 Active empty container (SHARPS CONTAINER) miscIndications:D iabetes mellitus type 1, controlled, without complications (HC) As directed 1 Each each time if needed (discarding sharps). 1 Container 3 08/11/20 20 Active alcohol swabsIndications: Diabetes mellitus type 1, controlled, without complications (HC) For home use. 100 Each 6 08/11/20 20 Active acetone, urine, test stripIndications: Diabetes mellitus type 1, controlled, without complications (HC) Individually wrapped ketone test strips. For personal use. 1 Bottle 3 03/27/20 21 Active Transparent Dressings (Tegaderm First Aid Style) 2 12/15 X 2 12/11 bndgIndications:D iabetes mellitus type 1, controlled, without complications (HC) Apply topically to affected area(s). For use with insulin pump infusion set. 30 Each 3 07/08/20 21 Active lancetsIndication s:Diabetes mellitus type 1, controlled, without complications (HC) Use to test blood sugar as directed 100 Each 3 08/03/20 21 Active blood sugar diagnostic (Blood Glucose Test) stripIndications: Diabetes mellitus type 1, controlled, without complications (HC) Test blood sugar 4 times daily 100 Each 3 08/03/20 21 Active NebulizerIndicati ons:Asthma, unspecified asthma severity, unspecified whether complicated, unspecified whether persistent (HC) Nebulizer, disposable neb kit x 4, reuseable neb kit x 1, mask x 1, filters x 1. Frequency of use: daily; Medication: duoneb Length of need: 99 months 1 Each 02/15/20 22 Active hydrOXYzine HCL (ATARAX) 50 mg tabletIndications :Anxiety TAKE 1 TABLET BY MOUTH EVERY 6 HOURS NEEDED FOR ANXIETY 90 Tablet 10/03/20 23 Active Gum Ztkspt-Fkzorj-FMt l-Alcohol (Mastisol Liquid Adhesive) liqdIndications:D iabetes mellitus [...] failure 30 mL 1 04/16/20 24 Active albuterol HFA (PRO-AIR; VENTOLIN; PROVENTIL) 90 mcg/actuation inhalerIndication s:Exacerbation of asthma, unspecified asthma severity, unspecified whether persistent (HC) Inhale 2 Puffs by mouth every 4 hours if needed for Wheezing. Ventolin only 1 Each 11 06/05/20 24 Active Infusion Set for Insulin Pump (AutoSoft XC Infusion Set 43) isetIndications:T ype 1 diabetes mellitus with diabetic neuropathy (HC) Change every 2 days 10/22/19 25 Active Insulin Pump Cartridge (t:slim X2) crtgIndications:T ype 1 diabetes mellitus with diabetic neuropathy (HC) Change every 2 days 10/22/19 25 Active DexCitizenShipper G7 Sensor for continuous blood glucose monitor (CGM)Indications: Diabetes mellitus type 1, controlled, without complications (HC) To be used to read blood sugars, follow line service technician directions. 9 Each 3 10/31/19 25 Active blood-glucose meterIndications: Type 1 diabetes mellitus with diabetic neuropathy (HC) Test blood sugar as directed 2 Each 11/01/19 25 Active tirzepatide (MOUNJARO) 2.5 mg/0.5 mL penIndications:Ty pe 1 diabetes mellitus with hyperglycemia (HC) Inject 2.5 mg subcutaneous once weekly. 2 mL 3 11/15/19 25 Active lisdexamfetamine (Vyvanse) 40 mg capsuleIndication s:Attention or concentration deficit Take 1 Capsule (40 mg) by mouth once daily in the morning. 31 Capsule 11/15/19 25 Active lisdexamfetamine (Vyvanse) 40 mg capsuleIndication s:Attention or concentration deficit Take 1 Capsule (40 mg) by mouth once daily in the morning. 31 Capsule 11/15/19 25 Active emtricitabine-ten ofovir, 200-300 mg, (TRUVADA) tabletIndications :Encounter for pre-exposure prophylaxis for HIV Take 1 Tablet by mouth once daily. 90 Tablet 3 11/15/19 25 Active tirzepatide, weight loss, (Zepbound) 2.5 mg/0.5 mL penIndications:Mo rbid obesity with BMI of 45.0-49.9, adult (HC) Inject 2.5 mg subcutaneous once weekly. 6 mL 3 11/22/19 25 Active lisdexamfetamine 40 mg capsuleIndication s:Attention deficit hyperactivity disorder (ADHD), predominantly inattentive type Take 1 Capsule (40 mg) by mouth once daily. 30 Capsule 02/20/20 25 025 Active lisdexamfetamine (Vyvanse) 40 mg capsuleIndication s:Attention deficit hyperactivity disorder (ADHD), predominantly inattentive type Take 1 Capsule (40 mg) by mouth once daily. 30 Capsule 04/20/20 25 Active lisdexamfetamine (Vyvanse) 40 mg capsuleIndication s:Attention deficit hyperactivity disorder (ADHD), predominantly inattentive type Take 1 Capsule (40 mg) by mouth once daily. 30 Capsule 03/21/20 25 025 Active insulin lispro (U-200) (HumaLOG KwikPen Insulin) 200 unit/mL (3 mL) penIndications:Ty pe 1 diabetes mellitus with diabetic neuropathy (HC) Inject up to 200 units daily 90 mL 3 02/29/20 25 Active insulin lispro, U-200, (HumaLOG KwikPen Insulin) 200 unit/mL (3 mL) penIndications:Ty pe 1 diabetes mellitus with diabetic neuropathy (HC) Inject up to 200 units daily 60 mL 5 04/16/20 24 025 Discontin ued(Reord er (E-cancel not sent)) lisdexamfetamine (VYVANSE) 40 mg capsuleIndication s:Attention deficit hyperactivity disorder (ADHD), predominantly inattentive type Take 1 Capsule (40 mg) by mouth once daily. 30 Capsule 12/14/19 25 025 Discontin ued(Reord er (E-cancel not sent)) Active Problems Problem Noted Date Diagnosed Date [...] Encounters Date Type Department Care Team Description 02/27/2025 Telephone [facility] [address] [place] [address] [place] [phone] Rom Sommers MD Prior Authorization (insulin lispro, U-200, (HumaLOG KwikPen Insulin) 200 unit/mL (3 mL) pen QTY LMT) 02/27/2025 Telephone [facility] [address] [place] [address] [place] [phone] Rom Sommers MD Medication Management (Humalog) 02/18/2025 Refill [facility] [address] [place] [address] Chance Saxena MD Refill Request (lisdexamfetamine (VYVANSE) ) from Last 3 Months Immunizations Immunization Administration Dates Next Due COVID-19 vaccine (Moderna [...] Past Smokeless Tobacco: Never Tobacco Cessation:Counseling Given: Yes Alcohol Use Standard Drinks/Week Comments Not Currently 0 (1 standard drink = 0.6 oz pur e alcohol) PHQ-2 Answer Date Recorded PHQ-2 TOTAL SCORE 0 08/16/2023 Social Connections Answer Date Recorded Frequency of Communication with Friends and Fami ly 0 03/22/2022 Financial Resource Strain Answer Date R ecorded [...] on file Legal Sex Male 7:55 AM SALES SUPERVISOR Gender Identity Male 08/11/2020 2:27 PM SALES SUPERVISOR Sexual Orientation Bisexual 08/11/2020 2: 27 PM SALES SUPERVISOR 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 Not on file Not on file Obstetrics History Last Filed Vital Signs Vital Sign Reading Time Taken Comments Blood Pressure 122/74 11/01/2024 8:06 AM SALES SUPERVISOR Pulse 86 11/01/2024 8:06 AM SALES SUPERVISOR Temperature 36.8 C (98.2 F) 09/09/2023 5:13 PM SALES SUPERVISOR Respiratory Rate 20 09/09/2023 6:30 PM SALES SUPERVISOR Oxygen Saturation 94% 09/09/2023 6:30 PM SALES SUPERVISOR Inhaled Oxygen Concentration - - Weight 180.1 kg (397 lb) 11/01/2024 8:06 AM SALES SUPERVISOR Height 170.2 cm (5' 7) 09/09/2023 10:41 AM SALES SUPERVISOR Body Mass Index 62.18 09/09/2023 10:41 AM SALES SUPERVISOR Plan of Treatment Upcoming Encounters Date Type Department Care Team (Late st Contact Info) Description 05/02/2025 8:00 AM CDT Office Visit [facility] [address] [address] [place] [phone] SchemRom mena MD [address] [facility] [address] [place] [id number] Health Maintenance Due Date Last Done Comments HIV for age 15-65 2011 Hepatitis C screening for ag e 18-79 2014 Hepatitis B series for 19+ ( 1 of 3 - 19+ 3-dose series) 2015 Tetanus booster 03/26/2019 03/26/2009 COVID-19 vaccine series (2023- season) 2024 09/15/2021, 02/19/2021, 01/20/2021 Depression screening for age 12+ 08/18/2024 08/18/2023, 08/18/2023, 08/16/2023, Additional history exists BMI (ht and wt on same day) for age 18+ 08/30/2024 08/30/2023, 08/18/2023, 05/25/2023, Additional history exists Influenza Vaccine (Season Ended) 2025 10/07/2021, 2019, 08/10/2017, Additional history exists Pneumococcal series for age 6-49 (3 of 3 - PCV20 or PCV21) 2046 10/21/2021, 03/30/2018, 06/22/2000 Tdap Completed 03/26/2009 Medical Devices Implanted Type Area Paper Twister Tender Device Identifier Shelf Expiration Date Model / Serial / Lot Mesh Ventral [address]in Ventral[address] - [id number] Implanted:Qty: 1 on 09/09/2023 by Duran Triana MD at [facility] N/A: Abdomen [employer] 03/06/2025 [id number] / / [id number] Insurance [facility] Advance Directives * Full Code (Latest Code [...] Preferences, Provider to review later Care Teams Early Childhood Special Educator Relationship Specialty [place] [address] [place] [address] PCP - General Family Practice 03/22/22 Rom Sommers MD [address] [place] [address] [place] [address] Endocrinology 02/06/24 Patsy Otero RN [address] [place] [address] [place] [address] Mine Technician Registered Nurse 10/22/24
--- OUTSIDE RECORDS SUMMARY | 2025-03-07 08:20 | XMS_ITS | Clinical Summary ---
Author Organization [email or web address] Address [address], [place] [address] Care Team Providers Care Automobile Mechanic Name Role Phone Yung Rodriguez MD Primary Care Provider [phone]- [phone] Source Comments You are receiving this document as you are listed as the primary care provider,follow-up provider, or the patient has been referred to you for consultation.This is in compliance with the Medicare and[facility] EHR Incentive Program,which states Providers who transition their patient to another setting of careor provider of care or refers their patient to another provider of care shouldprovide summary care record for each transition of care or referral. [email or web address] Allergies Active Allergy Reactions Criticality Noted Date Comments Metformin Gastrointestinal 01/03/2017 Diarrhea and abdominal pain Penicillins Hives,Other, see comments High 6 PN: Reporting medication caused DKA, states was placed in hospital for week and a 1/2. Medications * This document contains information received from the source organization and may not represent a complete record from that organization. buPROPion (AKA WELLBUTRIN XL) 300 MG 24 hour release tablet Take 300 mg by mouth daily. Active ibuprofen (AKA MOTRIN) 600 MG tablet Take 1 Tab by mouth every 6 hours as needed for Pain. 30 Tab 0 08/19/20 14 Active Additional Information Patient not taking.Reported on 03/29/2018 blood glucose test strip Use 1 strip to test 4 times daily (before meals and bedtime). 400 strip 4 05/20/20 16 Active glucagon, human recombinant, (GLUCAGON,HUMAN RECOMBINANT) 1 MG injection Inject 1 mg subcutaneously once for 1 dose. 1 each 05/20/20 16 Active ALBUTEROL IN Active insulin glargine (LANTUS SOLOSTAR) 100 UNIT/ML penIndications:Ibis lakia Mellitus Inject 90 Units subcutaneously daily. For pump failure Indications: Diabetes Mellitus 15 mL 6 03/29/20 18 Active insulin pen needle (BD PEN NEEDLE BLAS U/F) 32G X 4 MMIndications:Type 1 diabetes mellitus with diabetic polyneuropathy (HRC) Inject 1 Each subcutaneously as needed. 100 Each 03/29/20 18 Active insulin syringe-needle U-100 1ml 31g x 15/64Indications: Type 1 diabetes mellitus with diabetic polyneuropathy (HRC) Inject 1 Each subcutaneously five times a day. 200 Each 03/29/20 18 Active insulin aspart (NOVOLOG) 100 UNIT/ML injection (vial) Total daily dose 250 unitsVia insulin pump. 5 u/ carb overnight, 7 u/ carb during day, plus correction 2 u/ 50 > 150 250 mL 04/05/20 18 Active insulin aspart (NOVOLOG) 100 UNIT/ML injection (vial)Indications: Diabetes Mellitus 5-7 units/carb meals and snacks plus scale up to 100 units daily when off insulin pump. Indications: Diabetes Mellitus 30 mL 04/05/20 18 Active Active Problems Problem Noted Date Diagnosed [...] 36.7 C (98 F) 08/19/2014 4:40 PM [facility]LEBOTOM[facility] Respiratory Rate 16 08/19/2014 4:40 PM [facility] Oxygen Saturation 98% 11/09/2016 3:05 PM [facility]LEBOTOM[facility] Inhaled Oxygen Concentration - - Weight 129.7 kg (286 lb) 03/29/2018 9:32 AM CDT Height 170.2 cm (5' 7) 03/29/2018 9:32 AM CDT Body Mass Index 44.79 03/29/2018 9:32 AM CDT Plan of Treatment Health Maintenance Due Date Last Done Comments Diabetes: Eye Exam 1996 Hep C Screening (Preventive Services) 1996 IPV (Polio) Vaccine (2 of 3 - 4-dose series) 07/12/2001 06/14/2001 HIV Screening (Preventive Services) 2012 Adult Preventive Visit 2014 HepB Vaccine (1) 2015 Diabetes: Foot Exam 05/20/2017 05/20/2016 (Completed ) Diabetes: HGBA1C 09/28/2018 03/29/2018, , 05/20/2016 DTaP/Tdap/Td Vaccine (3 - Tdap) 03/26/2019 03/26/2009, 06/14/2001 Diabetes: Creatinine 03/29/2019 03/29/2018, 05/20/20 16 Diabetes: Urine Microalbumin 03/29/2019 03/29/2018, 05/20/2016 Pneumococcal Vaccine (2 of 2 - PCV) 03/30/2019 03/30/2018, 06/22/2000 Diabetes: Lipid Panel 03/29/2023 03/29/2018, 016 COVID-19 Vaccine (2 - season) 2024 01/20/2021 Influenza Vaccine (Season Ended) 2025 2019, 08/10/2017, 10/06/2016, Additional history exists Zoster/Shingles Vaccine (1 of 2) 2046 HepA Vaccine Completed 12/28/2007, 02/28/2007 MCV4 Vaccine Aged Out 11/16/2016, 03/26/2009 No lo nger eligible based on patient's age to complete this topic HPV Vaccine Completed 03/30/2018, 1110/2016, 11/16/2016 Hib Vaccine Aged Out No longer eligi ble based on patient's age to complete this topic Meningococcal B Vaccine Aged Out No l onger eligible based [...] - 03/29/2018 11:43 AM CDT Performed at [facility], [address] [place] [address] CLIA number [id number] Brii Nguyen PA-C LAB_1 Final Resu lt PN SOFT [address] [place] [address] * (ABNORMAL) Lipid Panel and Direct LDL(If [...] - 03/29/2018 11:11 AM CDT Performed at [facility], [address] [place] [address] CLIA number [id number] Brii Nguyen PA-C LAB_1 Final Resu lt Performing Organization Address [facility] de Phone Number PN SOFT [address] [place] [address] * (ABNORMAL) Creatinine / GFR (03/29/2018 10:31 [...] - 03/29/2018 11:11 AM CDT Performed at [facility], [address] [place] [address] CLIA number [id number] us Brii Nguyen PA-C LAB_1 Final Resu lt Performing Organization Address [facility] de Phone Number PN SOFT [address] [place] [address] * (ABNORMAL) POCT glycosylated hemoglobin (Hb A1C) (03/29/2018 9:47 AM CDT) Hemoglobin A1C, POC 9.1(A) 4 - 5.6 % PN POCT Cartridge Lot# [id number] PN POCT Blood specimen (specimen) 03/29/2018 9:47 AM CDT Brii Nguyen PA-C PN POINT OF CARE TESTS Fin al Result PN POCT from Last 3 Months or Most Recently Relevant to Health Maintenance Insurance [facility] Care Teams Automobile Mechanic Relationship Specialty Start Date End Date Yung Rodriguez MD [facility] [address] [facility] [address] [place] [address] PCP - General Pediatric Medicine 08/19/14
--- OUTSIDE RECORDS SUMMARY | 2025-03-07 08:20 | XMS_ITS | Encounter Summary ---
Author Organization [place] Address [address] [facility] [place] [address] Care Team Providers Care Alliance Consultant Name Role Phone Yung Rodriguez MD Primary Care Provider Shanti Jimenes Primary Care Provider Chance Johnson MD Primary Care Provider [phone] Encounter Details Date Type Department Care Team (Late st Contact Info) Description 10/05/2011 Office Visit [facility] Reji Fam, DO [facility] [address] [place] [address] [address] Social History Tobacco Use Types Packs/Day Years Used Date Smoking Tobacco: Never Alcohol Use Standard Drinks/Week Comments No 0 (1 standard drink = 0.6 oz pur e alcohol) Sex and Gender Information Value Date Recorded Sex Assigned at Not on file Legal Sex Male 3:41 AM BASKET GRADER Gender Identity Not on file Sexual Orientation Not on file documented as of this encounter Progress Notes * Reji Fam MD - 10/05/2011 2:40 PM CST [facility] Psychiatric Progress Note Date of visit: 10/05/11 Impression: This is a 16 year old male with hx depression, anxiety, and ADHD. Struggles also with IDDM which has not been stable. Patient continuing to struggle with mood and behavior. DIagnoses: Cherokee I: MDD, recurrent, severe without psychosis. Generalized Anxiety Disorder. ADHD, combined type. Cherokee II: Deferred. Cherokee III: IDDM Cherokee IV: moderate psychosocial stressors Cherokee V: Global Assessment of Functionin Plan: Reviewed [...] previous visit (from the past 24 hour(s)). ET GRADER documented in this encounter Plan of Treatment Not on file documented as of this encounter Visit Diagnoses Not on filedocumented in this encounter Additional Health Concerns Infection Onset Date Last Indicated Resolved Time Rule Out COVID-19 07/15/2021 07/15/2021 07/15/2021 12:51 PM CDT Rule Out COVID-19 02/14/2022 02/14/2022 02/14/2022 11:02 PM CDT documented as of this encounter Care Teams Alliance Consultant Relationship Specialty Start Date End Date Yung Rodriguez MD PCP - General Pediatrics 07/31/11 10/03/16 Shanti Magdaleno PCP - General 10/04/16 08/03/17 Chance Saxena MD [facility] [id number] [place] [address] PCP - General Family Practice 08/04/17 documented as of this encounter
--- OUTSIDE RECORDS SUMMARY | 2025-03-07 08:20 | XMS_ITS | Clinical Summary ---
Author Organization [place] Address [address] [facility] [place] [address] Care Team Providers Care Mathematical Sciences Professor Name Role Phone Chance Saxena MD Primary Care Provider [phone] Allergies Active Allergy Reactions Criticality Noted Date [...] maxillary sinusitis 04/25/2013 07/12/2023 Deliberate self-cutting 10/22/201112/2022 Encounters Date Type Department Care Team Description 03/03/2025 8:24 PM CDT - 03/04/2025 2:12 AM CDT Emergency [facility] Emergency Dept [address] [place] [address] Kevan Tabor MD Hypoglycemia; Syncope and collapse Discharge Disposition: Home or Self Care 03/03/2025 Travel from Last 3 Months Immunizations Immunization Administration Dates Next Due Influenza Vaccine >6 months,madina, PF 10/06/2016 Family History Medical History Relation Comments C.A.D. 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 Gender Identity Not on file Sexual Orientation [...] 12/13/2009 HEPATITIS C SCREENING 2014 HEPATITIS B VACCINE (1 of 3 - 19+ 3-dose series) 2015 DTAP/TDAP/TD VACCINE (3 - Td or Tdap) 03/26/2019 03/26/2009, 06/14/2001 A1C 09/21/2021 03/22/2021, 03/10, 03/21/2019, Additional history exists ADVANCE CARE PLANNING 03/21/2024 03/21/2019 COVID-19 VACCINE ( season) 2024 09/15/2021, 02/19/2021, 01/20/2021 INFLUENZA VACCINE (Season Ended) 2025 10/08/2021, 2019, 08/10/2017, Additional history exists BMP 03/03/2026 03/03/2025, 05/11, 07/11/2023, Additional history exists PNEUMOCOCCAL VACCINE: PEDIATRICS (0 to 5 YEARS) AND AT-RISK PATIENTS (6 to 49 YEARS) (3 of 3 - PCV20 or PCV21) 2046 10/21/2021, 03/30/2018, 06/22/2000 ZOSTER VACCINE (1 of 2) 2046 MENINGITIS VACCINE Aged Out 11/16/2016, 03/26/2009 No longer eligible based on patient's age to complete this topic HPV VACCINE Completed 03/30/2018, 11/0 10/2016, 11/16/2016 TSH W/FREE T4 REFLEX Discontinued 03/21/2019, 10/23/2011, 12/13/2009 Medical Devices Implanted Type Area Stock Car Driver Device Identifier Shelf Expiration Date Model / Serial / Lot Staple Reload [place] 45mm 3.5mm White - [id number] Implanted:Qty : 1 on 12/16/2016 Metallic Hardware/Anc hor N/A: Abdomen [facility]-ON LICENSE OF [facility] 10/09/2020 [id number] / / [id number] Procedures Procedure Name Priority Date/Time Associated Diagnosis Comments GLUCOSE BY METER STAT 03/04/2025 1:44 AM CDT GLUCOSE BY METER STAT 03/04/2025 12:1 2 AM CDT GLUCOSE BY METER STAT 03/03/2025 11:1 8 PM CDT GLUCOSE BY METER STAT 03/03/2025 10:1 7 PM CDT GLUCOSE BY METER STAT 03/03/2025 9:47 PM CDT BASIC METABOLIC PANEL STAT 03/03/2025 8:39 PM CDT EXTRA PURPLE TOP TUBE STAT 03/03/2025 8:39 PM CDT EXTRA GREEN TOP (LITHIUM HEPARIN) TUBE STAT 03/03/2025 8:39 PM CDT EXTRA RED TOP TUBE STAT 03/03/2025 8: 39 PM CDT EXTRA BLUE TOP TUBE STAT 03/03/2025 8 :39 PM CDT EXTRA TUBE STAT 03/03/2025 8:39 PM CDT EKG 12-LEAD, TRACING ONLY STAT 03/03/2025 8:33 PM CDT GLUCOSE BY METER STAT 03/03/2025 8:27 PM CDT HEMOGLOBIN A1C Routine 03/22/2021 1:44 AM CDT Diabetic ketoacidosis without coma associated with type 1 diabetes mellitus (H) TSH WITH FREE T4 REFLEX Timed 03/21/2019 7:04 AM CDT Continuous auditory hallucinations LIPID PROFILE Timed 10/23/2011 8:51 AM SENIOR DATA WAREHOUSE DEVELOPER from Last 3 Months or Most Recently Relevant to Health Maintenance Results * (ABNORMAL) Glucose by meter (03/04/2025 1:44 AM CDT) Only the most recent of6 resultswithin the time period is included. GLUCOSE BY METER POCT 118(H) 70 - 99 mg/dL 03/04/2025 1:51 AM CDT [facility] LABORATORY POC Blood, Capillary BLOOD SPECIMEN / Unknown 03/04/2025 1:44 AM CDT 03/04/2025 1:51 AM CDT us Kevan Tabor MD LAB - BEAKER POCT Final Result [facility] [address] [facility], no room number) [place] [phone] * Extra Purple Top Tube (03/03/2025 8:39 PM CDT) Hold Specimen [facility] 03/03/2025 10:01 PM CDT LABORATORY Blood BLOOD SPECIMEN / Unknown Venipuncture / Unknown 03/03/2025 8:39 PM CDT 03/03/2025 8:49 PM CDT us Kevan Tabor MD LAB - BLOOD ORDERABLES Final Res ult [facility] Lab [address] Lab (1st floor, no room number) [place] [id number] * Extra Green Top (Brent Heparin) Tube (03/03/2025 8:39 PM CDT) Hold Specimen [facility] 03/03/2025 10:01 PM CDT LABORATORY Blood BLOOD SPECIMEN / Unknown Venipuncture / Unknown 03/03/2025 8:39 PM CDT 03/03/2025 8:49 PM CDT us Kevan Tabor MD LAB - BLOOD ORDERABLES Final Res ult [facility] [address] Lab (1st floor, no room number) [address] * Extra Red Top Tube (03/03/2025 8:39 PM CDT) Hold Specimen [facility] 03/03/2025 10:01 PM CDT [facility] LABORATORY Blood BLOOD SPECIMEN / Unknown Venipuncture / Unknown 03/03/2025 8:39 PM CDT 03/03/2025 8:49 PM CDT us Kevan Tabor MD LAB - BLOOD ORDERABLES Final Res ult Performing Organization Address [facility]/ZIP Co de Phone Number [facility] [address] Lab (1st floor, no room number) [address] * Extra Blue Top Tube (03/03/2025 8:39 PM CDT) Hold Specimen [facility] 03/03/2025 10:01 PM CDT [facility] LABORATORY Blood BLOOD SPECIMEN / Unknown Venipuncture / Unknown 03/03/2025 8:39 PM CDT 03/03/2025 8:49 PM CDT us Kevan Tabor MD LAB - BLOOD ORDERABLES Final Res ult Performing Organization Address City/[facility]/ZIP Co de Phone Number [facility] [address] Lab (1st floor, no room number) [address] * (ABNORMAL) Basic metabolic panel (03/03/2025 8:39 [...] 03/03/2025 9:35 PM CDT LABORATORY Comment:eGFR calculated 2020 CKD-EPI equation. Calcium 9.0 8.8 - 10.4 mg/dL 03/03/2025 9:35 PM CDT LABORATORY Glucose 112(H) 70 - 99 mg/dL 03/03/2025 9:35 PM CDT LABORATORY Blood BLOOD SPECIMEN / Unknown Venipuncture / Unknown 03/03/2025 8:39 PM CDT 03/03/2025 8:49 PM CDT us Kevan Tabor MD LAB - BLOOD ORDERABLES Final Res ult LABORATORY [facility] [address] Lab (1st floor, no room number) [place] [address] * EKG 12-lead, tracing only (03/03/2025 8:33 PM CDT) Systolic Blood Pressure mmHg RADIOLOGY RESULTS Diastolic Blood Pressure mmHg RADIOLOGY RESULTS Ventricular Rate 80 BPM RAD IOLOGY RESULTS Atrial Rate 80 BPM RADIOLOG Y RESULTS RI Interval 124 ms RADIOLOG Y RESULTS QRS Duration 96 ms RADIOLO GY RESULTS QT 400 ms RADIOLOGY RESULTS QTc 461 ms RADIOLOGY RESULTS P [place] 43 degrees RADIOLOGY RESULTS R AXIS 26 degrees RADIOLOGY RESULTS T [place] 58 degrees RADIOLOGY RESULTS Interpretation ECG Sinus [...] Confirmed by - EMERGENCY ROOM, PHYSICIAN ([id number]), design editor Owen Barba ([id number]) on 03/05/2025 7:42:32 AM RADIOLOGY RESULTS 03/03/2025 8:33 PM CDT 03/05/2025 7:42 AM CDT us Jennifer Lora MD ECG ORDERABLES Edited Result - Final Performing Organization Address City/[facility]/ZIP Co de Phone Number RADIOLOGY RESULTS * (ABNORMAL) Hemoglobin A1c (03/22/2021 1:44 AM CDT) Hemoglobin A1C 6.1(H) 0 - 5.6 % 03/22/2021 2:26 AM CDT [facility] Comment: Normal <5.7% Prediabetes 5.7-6.4% Diabetes 6.5% or higher - adopted from ADA consensus guidelines. Blood 03/22/2021 1:44 AM CDT 03/22/2021 1:45 AM CDT us Andrés Escoto MD LAB - BLOOD ORDERABLES Final Result Performing Organization Address [facility] Co de Phone Number [facility] [address] [place] [address], [facility] [phone] * TSH with free T4 reflex (03/21/2019 7:04 AM CDT) TSH 1.51 0.40 - 4.00 mU/L 03/21/2019 7:48 AM CDT [facility] Blood specimen (specimen) 03/21/2019 7:04 AM CDT 03/21/2019 7:05 AM CDT us Simi Lynn APRN FOOD COUNTER ATTENDANT LAB - BLOOD ORDER CHRIS Final Result Performing Organization Address City/[facility] Co de Phone Number [facility] [address] [place] [address] * (ABNORMAL) Lipid profile (10/23/2011 8:51 AM SENIOR DATA WAREHOUSE DEVELOPER) Cholesterol 186 0 - 200 mg/dL [facility] Comment: LDL Cholesterol is the primary guide to therapy. The NCEP recommends further evaluation of: patients with cholesterol greater than 200 mg/dL if additional risk factors are present, cholesterol greater than 240 mg/dL, triglycerides greater than 150 mg/dL, or HDL less than 40 mg/dL. Triglycerides 201(H) 0 - 150 mg/dL [facility] HDL Cholesterol 40 40 - 110 mg/dL [facility] LDL Cholesterol Calculated 106 0 - 129 mg/dL [facility] Comment: LDL Cholesterol is the primary guide to therapy: LDL-cholesterol goal in high risk patients is <100 mg/dL and in very high risk patients is <70 mg/dL. VLDL-Cholesterol 40(H) 0 - 30 mg/dL [facility] Cholesterol/HDL Ratio 5.0 0.0 - 5.0 [facility] Blood specimen (specimen) 10/23/2011 8:51 AM SENIOR DATA WAREHOUSE DEVELOPER 10/23/2011 9:02 AM SENIOR DATA WAREHOUSE DEVELOPER Donna Hill MD LAB - BLOOD ORDERABLES Final Result [facility] [address] [place] [address], [facility] from Last 3 Months or Most Recently Relevant to Health Maintenance Insurance [email or web address] Advance Directives For more information, please contact: [phone] * Full Code (Latest Code Status on [...] with patie nt/legal decision maker Care Teams Mathematical Sciences Professor Relationship Specialty Start Date End Date Chance Saxena MD [facility] [address] [place] [address] PCP - General Family Practice 08/04/17
--- OUTSIDE RECORDS SUMMARY | 2025-03-07 08:20 | XMS_ITS | Encounter Summary ---
Author Organization [place] Address [address] [facility] [place] [address] Care Team Providers Care Bow Maker Machine Tender Name Role Phone Yung Rodriguez MD Primary Care Provider Shanti Jimenes Primary Care Provider Chance Johnson MD Primary Care Provider [phone] Encounter Details Date Type Department Care Team ([facility] st Contact Info) Description 08/05/2011 [facility] Intake [address] [place] [id number] Generic, Behavioral Intake, Social History Tobacco Use Types Packs/Day Years Used Date Smoking Tobacco: Never Alcohol Use Standard Drinks/Week Comments No 0 (1 standard drink = 0.6 oz pur e alcohol) Adolescent Education Answer Date Record ed Getting School Help Needed Not on file 07/12 Sex and Gender Information Value Date Recorded Sex Assigned at Not on file 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 No / Unsure 07/11/2023 4:09 PM CDT documented as of this encounter Miscellaneous Notes * Telephone Encounter - Epifanio Bridges - 08/11/2011 4:01 PM CDT Message copied by EPIFANIO BRIDGES on TueAug 11, 2011 4:01 PM ------ Message from: PRABHU FELDMAN Created: TueAug 11, 2011 1:25 PM [place] will start this coming Mon. 08/16 and be followed by Dr. Sameera Garcia. Dr. Gooden is covering and will do admission orders. Chloe @ auth'd Pt through . 09/07 and will call Nelson BeauchamptherLeonardo) for review that day. Auth# [id number] * Telephone Encounter - Miriam Lovelace - [...] documented as of this encounter Care Teams Bow Maker Machine Tender Relationship Specialty Start Date End Date Yung Rodriguez MD PCP - General Pediatrics 07/31/11 10/03/16 Shanti Magdaleno PCP - General 10/04/16 08/03/17 Chance Saxena MD [facility] [address] [place] [address] PCP - General Family Practice 08/04/17 documented as of this encounter
--- OUTSIDE RECORDS SUMMARY | 2025-03-07 08:20 | XMS_ITS | Encounter Summary ---
Author Organization [place] Address [address] [facility] 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
[2025-03-07 08:24] LABS: Ethanol* < 0.01 % (0.01-0.03); Glucose* 30 mg/dL (60-115)
[2025-03-07 08:25] LABS: Anion Gap 8 mEq/L (7-15); Blood Urea Nitrogen* 15 mg/dL (5-24); Chloride* 101 mmol/L (96-114); Creatinine* 0.6 mg/dL (0.5-1.5); Est. Creatinine Clearance* 171.37; Estimated Glomerular Filt Rate 135 ml/min; Potassium* 3.9 mmol/L (3.6-5.1); Sodium* 141 mmol/L (135-149)
[2025-03-07] MEDS: 10 % DEXTROSE 500 ML 250 ML IV (08:48)
[2025-03-07 09:16] LABS: Strep A DNA Probe* NOT DETECTED (Not Detectd)
[2025-03-07 09:25] LABS: PCR FLU A Negative PCR FLU A (Negative); PCR FLU B Negative PCR FLU B (Negative); PCR RSV Negative PCR RSV (Negative); SARS PCR* Negative SARS-CoV-2 (Negative)
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
[2025-03-07 13:23] LABS: Appearance Urine Clear (Clear); Bilirubin Urine Negative (Negative); Blood Urine Negative (Negative); Color Urine Yellow (Yellow); Glucose Urine Negative (Negative); Ketones Urine Negative (Negative); Leukocyte Esterase Urine Negative (Negative); Nitrite Urine Negative (Negative); Protein Urine Negative (Negative); Specific Gravity Urine <= 1.005 (1.000-1.030); Urobilinogen Urine 0.2 (0.2-1.0)
[2025-03-07 13:34] LABS: Amphetamine Screen Urine Negative (Negative); Barbiturate Screen Urine Negative (Negative); Benzodiazepines Screen Urine POSITIVE (Negative); Cannabinoid Screen Urine POSITIVE (Negative); Cocaine Screen Urine Negative (Negative); Methadone Screen Urine Negative (Negative); Methamphetamines Screen Urine Negative (Negative); Opiate Screen Urine Negative (Negative); Oxycodone Screen Urine Negative (Negative); Phencyclidine Screen Urine Negative (Negative); Tricyclic Antidepressant Urine Negative (Negative)
[2025-03-07 13:45] LABS: RBC Urine 0-2 (0-2); WBC Urine 0-2 (0-5)
[2025-03-07] MEDS: ACETAMINOPHEN 325 MG TABLET 650 MG PO ×2 (17:44→23:33)
--- NOTE | 2025-03-07 18:29 | PC.NURSE ---
Pt doing okay today. VSS. Denies pain. Ambulates independently in room. Tolerating regular diet. Pt denies nausea and dizziness. Pt continues to complain of nasal congestion. Pt has been on hourly blood glucose checks with values ranging 58-109. Pt has been on continuous IV 10% Dextrose. IV in the right hand infiltrated at approximately 1800. Pt is resting well at this time. Pt's mom is at bedside.
[2025-03-07] MEDS: INSULIN PUMP (PT OWN) 1 EACH SUBCUT (18:52)
--- NOTE | 2025-03-08 | CRLHL7_ITS ---
For Patients: As a result of the Century Cures Act, medical imaging exams and procedure reports are released immediately into your electronic medical record. You may view this report before your referring provider. If you have questions, please contact your health care provider. INDICATION: PICC line placement COMPARISON: 03/07/2025 TECHNIQUE: 1 view chest radiograph. FINDINGS: Limited exam due to body habitus and portable technique. There is a left arm PICC with the distal tip at approximately the superior cavoatrial junction. Non portable radiographs may be necessary for better visualization. Lungs appear to be clear. IMPRESSION: Limited portable exam due to body habitus. Consider non portable radiographs to confirm PICC placement. Dictated by Teresa Dumont MD @ 03/08/2025 5:26:58 AM (Electronically Signed)
[2025-03-08] MEDS: LORazepam 1 MG TABLET PO ×2 (02:11→04:38)
[2025-03-08 04:00] VITALS: BP 178/90; PULSE 91; RESP 16; TEMP 36.1; O2SAT 91
[2025-03-08] MEDS: INSULIN PUMP (PT OWN) 1 EACH SUBCUT (06:44)
--- NOTE | 2025-03-08 06:49 | PC.NURSE ---
End of shift report [id number]: VSS. Afebrile. On RA. Pt is ind in room. Tolerating regular diet. BG lowest overnight was 42, MD aware, snack and BG tablet given. Pt remained asympotmatic of hypoglycemic symptoms. Pts IV infiltrated this shift. Pt complains of soreness in prior IV infiltration sites on the right hand and right upper arm, warm compress and movement of the extremity encouraged. Pt had a PICC line placed and pt requested ativan before the placement, ativan given. Pt highest BG overnight was 374, pts personal insulin pump was restarted per MD parameters. Pt did not exhibit any signs of hyperglycemia. Pt is resting in bed, call light within reach.
[2025-03-08 07:13] LABS: Chloride* 100 mmol/L (96-114); Potassium* 4.9 mmol/L (3.6-5.1); Sodium* 136 mmol/L (135-149)
[2025-03-08 07:16] LABS: Anion Gap 6 mEq/L (7-15); Blood Urea Nitrogen* 19 mg/dL (5-24); Calcium* 8.5 mg/dL (8.4-10.6); Carbon Dioxide* 30 mmol/L (20-32); Creatinine* 0.7 mg/dL (0.5-1.5); Est. Creatinine Clearance* 146.89; Estimated Glomerular Filt Rate 129 ml/min
[2025-03-08 07:30] LABS: Glucose* 299 mg/dL (60-115)
[2025-03-08 08:51] LABS: Basophils Absolute Auto 0.04 K/uL (0.00-0.30); Basophils Percent Auto 0.4 % (0.0-3.0); Eosinophils Absolute Auto 0.23 K/uL (0.00-0.50); Eosinophils Percent Auto 2.4 % (0.0-7.0); Hemoglobin* 12.7 gm/dL (13.5-17.5); Immature Granulocytes Abs Auto 0.02 K/uL (0.00-0.30); Immature Granulocytes Pct Auto 0.2 %; Lymphocytes Percent Auto 18.6 % (20-44); Mean Corpuscular HGB Conc 30 gm/dL (32-36); Mean Corpuscular Hemoglobin 27 pg (26-34); Mean Corpuscular Volume 89 fL (80-100); Monocytes Percent Auto 7.5 % (0.0-11.0); Neutrophils Percent Auto 70.9 % (42.0-72.0); Platelet Count* 249 K/uL (140-440); RDW Coefficient of Variation % 14.3 % (11.5-15.5); Red Blood Count 4.74 m/uL (4.30-5.90); White Blood Count* 9.73 K/uL (4.50-11.00)
[2025-03-08 08:53] VITALS: BP 155/83; PULSE 86; RESP 20; TEMP 36.7; O2SAT 93
[2025-03-08 08:54] LABS: Slide Review Reflex No
[2025-03-08 08:55] VITALS: RESP 20
--- NOTE | 2025-03-08 10:21 | P.IMPN_ITS ---
Assessment and Plan Assessment and plan (1) Diabetes mellitus with hypoglycemia: Problem comment: Ongoing problems with hypoglycemia despite insulin pump and continuous glucose monitoring. I reviewed this with his community relations liaison, Dr Rom Sommers, in [place]. He is made the following recommendations for pump settings which the patient has made: Set the basal rate at 1.2 units for all times of the day, set the correction factor at 1 for every 55 at all times the day, set the carb ratio at 1/20 4 all times the day. (previous basal was 1.5, previous correction was 1/38-40 depending on time of day, previous carb ratio was 1-15.) 03/08: Overnight patient has lost his IV access and a PICC line was inserted. Last time patient got IV dextrose was yesterday morning. Patient had his insulin pump activated around 5:00 a.m. this morning on the lowered rate. Patient has been eating and drinking. His blood sugar has been around 150s to 180s on the current rate of 1.2 without the need to give him extra sugar/IV dextrose. - Ordered labs workup for hypoglycemia: proinsulin, insulin level, C-peptide, insulin antibody and sulfonylurea level. Status: Acute (2) Complication of insulin pump: Problem comment: Patient continued to have problems with hypoglycemia whenever his insulin pump was activated. Initially this was resolved by disconnecting the pump. In attempt to solve the problem the pump was reconnected and basal rate was adjusted. Apparently this pump cannot have the basal rate adjusted as it response to his blood sugar regardless of adjustments. In reviewing this with his community relations liaison who has access to his pump data the recommendation was to decrease the corrective dose of insulin in the pump. Status: Acute (3) Uses self-applied continuous glucose monitoring device: Problem comment: Appears inaccurate when compared to fingerstick blood sugars until CGM placed at a new site today and accuracy improved. Prior to replacing his Dexcom his blood sugars were off by 40 mg/dl of dextrose compared to fingersticks in the hospital. After replacement they were typically within about 10 mg/dl Status: Acute (4) Morbid obesity: Problem comment: BMI of 62. Was prescribed tirzepatide but insurance did not pay for it. I recommend he continue to pursue this with indications of obesity and sleep apnea treatment. Status: Acute Subjective Interval history: Overnight patient has lost his IV access and a PICC line was inserted. Last time patient got IV dextrose was yesterday morning. Patient had his insulin pump activated around 5:00 a.m. this morning on the lowered rate. Patient has been eating and drinking. His blood sugar has been around 150s to 180s on the c urrent rate of 1.2 without the need to give him extra sugar/IV dextrose. Exam Const: Vital Signs, click to edit/add: Vital Signs - 24 hr 03/07/25 11:00 03/07/25 11:59 03/07/25 15:00 Temperature 98.0 F 98.0 F Pulse Rate [Pulse Oximeter] 100 100 102 H Respiratory Rate 20 20 18 Blood Pressure [Ri ght Arm] 130/80 130/80 Pulse Oximetry 94 94 Oxygen Delivery Me thod Room Air Room Air 03/07/25 16:04 03/07/25 19:00 03/07/25 22:13 Temperature 98.2 F 97.8 F Pulse Rate [Pulse Oximeter] 102 H 84 84 Respiratory Rate 18 18 18 Blood Pressure [Ri ght Arm] 126/72 134/74 Pulse Oximetry 92 92 Oxygen Delivery Me thod Room Air Room Air 03/07/25 23:00 03/08/25 04:00 03/08/25 08:53 Temperature 97.8 F 97 F L 98.1 F Pulse Rate [Pulse Oximeter] 96 91 86 Respiratory Rate 20 16 20 Blood Pressure [Ri ght Arm] 131/84 178/90 H 155/83 H Pulse Oximetry 90 91 93 Oxygen Delivery Me thod Room Air Room Air Room Air 03/08/25 08:55 Temperature Pulse Rate [Pulse Oximeter] Respiratory Rate 20 Blood Pressure [Ri ght Arm] Pulse Oximetry Oxygen Delivery Me thod Labs Labs: Laboratory Results - last 24 hr 03/07/25 03/07/25 03/08/25 07:34 07:39 06:45 WBC RBC Hgb Hct MCV MCH MCHC RDW Coeff of Andre Plt Count Neut % (Auto) Lymph % (Auto) [place] % (Auto) Eos % (Auto) Baso % (Auto) Neut # (Auto) Lymph # (Auto) [place] # (Auto) Eos # (Auto) Baso # (Auto) Abs Immat Gran (auto) Imm/Tot Granulo (auto) Sodium 136 Potassium 4.9 Chloride 100 Carbon Dioxide 30 Anion Gap 6 L BUN 19 Creatinine 0.7 Estimated Creat Clear 146.89 Estimated GFR 129 Glucose 299 H Calcium 8.5 Urine Color Yellow Urine Appearance Clear Urine pH 6.0 Ur Specific [place] <= 1.005 Urine Protein Negative Urine Glucose (UA) Negative Urine Ketones Negative Urine Blood Negative Urine Nitrite Negative Urine Bilirubin Negative Urine Urobilinogen 0.2 Ur Leukocyte Esterase Negative Urine RBC 0-2 Urine WBC 0-2 Ur Squamous Epith Cells None Urine Bacteria None Urine Opiates Screen Negative Ur Oxycodone Screen Negative Urine Methadone Screen Negative Ur Barbiturates Screen Negative U Tricyclic Antidepress Negative Ur Phencyclidine Scrn Negative Ur Amphetamines Screen Negative U Methamphetamines Scrn Negative U Benzodiazepines Scrn POSITIVE A Urine Cocaine Screen Negative U Marijuana (THC) Screen POSITIVE A Ur Drug Screen Comment See Note Lab Acknowledgement 03/08/25 03/08/25 08:45 09:26 WBC 9.73 RBC 4.74 Hgb 12.7 L Hct 42.0 MCV 89 MCH 27 MCHC 30 L RDW Coeff of Andre 14.3 Plt Count 249 Neut % (Auto) 70.9 Lymph % (Auto) 18.6 L [place] % (Auto) 7.5 Eos % (Auto) 2.4 Baso % (Auto) 0.4 Neut # (Auto) 6.90 Lymph # (Auto) 1.80 [place] # (Auto) 0.70 Eos # (Auto) 0.23 Baso # (Auto) 0.04 Abs Immat Gran (auto) 0.02 Imm/Tot Granulo (auto) 0.2 Sodium Potassium Chloride Carbon Dioxide Anion Gap BUN Creatinine Estimated Creat Clear Estimated GFR Glucose Calcium Urine Color Urine Appearance Urine pH Ur Specific [place] Urine Protein Urine Glucose (UA) Urine Ketones Urine Blood Urine Nitrite Urine Bilirubin Urine Urobilinogen Ur Leukocyte Esterase Urine RBC Urine WBC Ur Squamous Epith Cells Urine Bacteria Urine Opiates Screen Ur Oxycodone Screen Urine Methadone Screen Ur Barbiturates Screen U Tricyclic Antidepress Ur Phencyclidine Scrn Ur Amphetamines Screen U Methamphetamines Scrn U Benzodiazepines Scrn Urine Cocaine Screen U Marijuana (THC) Screen Ur Drug Screen Comment Lab Acknowledgement Test Added
[2025-03-08 10:50] VITALS: BP 155/79; PULSE 86; RESP 18; TEMP 36.5; O2SAT 93
[2025-03-08 11:00] VITALS: BP 155/79; PULSE 86; RESP 18; TEMP 36.5; O2SAT 93
--- NOTE | 2025-03-08 14:36 | P.DS_ITS ---
DS: Providers Provider Date Seen: 03/08/25 Date of admission: 03/07/25 09:14 Primary care physician: Chance Saxena MD Admitting Clinician: Jayson Muñoz MD Attending Physician on discharge: Marcia Hussein MD DS: Diagnosis Discharge Diagnosis (1) Diabetes mellitus with hypoglycemia: Status: Acute Problem details: Ongoing problems with hypoglycemia despite insulin pump and continuous glucose monitoring. I reviewed this with his food production supervisor, Dr Rom Sommers, in [place]. He is made the following recommendations for pump settings which the patient has made: Set the basal rate at 1.2 units for all times of the day, set the correction factor at 1 for every 55 at all times the day, set the carb ratio at 1/20 4 all times the day. (previous basal was 1.5, previous correction was 1/38-40 depending on time of day, previous carb ratio was 1-15.) 30: Overnight patient has lost his IV access and a PICC line was inserted. Last time patient got IV dextrose was yesterday morning. Patient had his insulin pump activated around 5:00 a.m. this morning on the lowered rate. Patient has been eating and drinking. His blood sugar has been around 150s to 180s on the current rate of 1.2 without the need to give him extra sugar/IV dextrose since 5 am. - Ordered labs workup for hypoglycemia: proinsulin, insulin level, C-peptide, insulin antibody and sulfonylurea level. -discussed with the mother the need for follow-up of hypoglycemia workup labs as an outpatient and following up with his food production supervisor. (2) Complication of insulin pump: Status: Acute Problem details: Patient continued to have problems with hypoglycemia whenever his insulin pump was activated. Initially this was resolved by disconnecting the pump. In attempt to solve the problem the pump was reconnected and basal rate was adjusted. Apparently this pump cannot have the basal rate adjusted as it response to his blood sugar regardless of adjustments. In reviewing this with his food production supervisor who has access to his pump data the recommendation was to decrease the corrective dose of insulin in the pump. (3) Uses self-applied continuous glucose monitoring device: Status: Acute Problem details: Appears inaccurate when compared to fingerstick blood sugars until CGM placed at a new site today and accuracy improved. Prior to replacing his Dexcom his blood sugars were off by 40 mg/dl of dextrose compared to fingersticks in the hospital. After replacement they were typically within about 10 mg/dl (4) Morbid obesity: Status: Acute Problem details: BMI of 62. Was prescribed tirzepatide but insurance did not pay for it. I recommend he continue to pursue this with indications of obesity and sleep apnea treatment. DS: Summary Hospital Course Hospital Course: A 29 year old male with type 1 diabetes presents to the emergency room with recurrent hypoglycemia. Patient notes that starting about a week ago he began having problems with low blood sugars. He has an insulin pump which is connected to his continuous glucose monitor. Pt received dextrose/water IV during his stay. We contacted his food production supervisor, Dr Rom Sommers, in [place]. He made the following recommendations for pump settings which the patient has made: Set the basal rate at 1.2 units for all times of the day, set the correction factor at 1 for every 55 at all times the day, set the carb ratio at 1/20 4 all times the day. (previous basal was 1.5, previous correction was 1/38-40 depending on time of day, previous carb ratio was 1-15.) Patient had his insulin pump activated around 5:00 a.m. on the DC day on the lowered rate. Patient has been eating and drinking. His blood sugar has been around 150s to 180s on the current rate of 1.2 without the need to give him extra sugar/IV dextrose since 5 am till 5 pm (on DC day). Ordered labs workup for hypoglycemia: proinsulin, insulin level, C-peptide, insulin antibody and sulfonylurea level. We discussed with the mother the need for follow-up of hypoglycemia workup labs as an outpatient and following up with his food production supervisor. Status at Discharge Functional status at discharge: independent ambulation Overall status at discharge: patient is back to baseline Time Spent with Patient Time attestation: Total time spent providing and/or coordinating discharge services: 50 min Exam Narrative: Exam Narrative: Physical exam GENERAL: Comfortable, no acute distress, obese. HEAD AND NECK: Atraumatic, normocephalic CARDIOVASCULAR: RRR. Normal S1, S2. No murmurs. RESPIRATORY: Clear to auscultation B/L. Good air entry B/L. No wheezes or rhonchi. NEUROLOGY: Alert, awake, oriented X 3. Normal speech. PSYCH: Normal mood, normal affect. Const: Vital Signs, click to edit/add: Vital Signs - 24 hr 03/07/25 15:00 03/07/25 16:04 03/07/25 19:00 Temperature 98.2 F 97.8 F Pulse Rate [Pulse Oximeter] 102 H 102 H 84 Respiratory Rate 18 18 18 Blood Pressure [Ri ght Arm] 126/72 134/74 Pulse Oximetry 92 92 Oxygen Delivery Me thod Room Air Room Air 03/07/25 22:13 03/07/25 23:00 03/08/25 04:00 Temperature 97.8 F 97 F L Pulse Rate [Pulse Oximeter] 84 96 91 Respiratory Rate 18 20 16 Blood Pressure [Ri ght Arm] 131/84 178/90 H Pulse Oximetry 90 91 Oxygen Delivery Me thod Room Air Room Air 03/08/25 08:53 03/08/25 08:55 03/08/25 10:50 Temperature 98.1 F 97.7 F Pulse Rate [Pulse Oximeter] 86 86 Respiratory Rate 20 20 18 Blood Pressure [Ri ght Arm] 155/83 H 155/79 H Pulse Oximetry 93 93 Oxygen Delivery Me thod Room Air Room Air 03/08/25 11:00 Temperature 97.7 F Pulse Rate [Pulse Oximeter] 86 Respiratory Rate 18 Blood Pressure [Ri ght Arm] 155/79 H Pulse Oximetry 93 Oxygen Delivery Me thod Room Air DS: Data Data Completed and Pending Labs on day of discharge: Labs from last 24 hours 03/08/25 03/08/25 03/08/25 09:26 08:45 06:45 WBC 9.73 RBC 4.74 Hgb 12.7 L Hct 42.0 MCV 89 MCH 27 MCHC 30 L RDW Coeff of Andre 14.3 Plt Count 249 Neut % (Auto) 70.9 Lymph % (Auto) 18.6 L [place] % (Auto) 7.5 Eos % (Auto) 2.4 Baso % (Auto) 0.4 Neut # (Auto) 6.90 Lymph # (Auto) 1.80 [place] # (Auto) 0.70 Eos # (Auto) 0.23 Baso # (Auto) 0.04 Abs Immat Gran (auto) 0.02 Imm/Tot Granulo (auto) 0.2 Sodium 136 Potassium 4.9 Chloride 100 Carbon Dioxide 30 Anion Gap 6 L BUN 19 Creatinine 0.7 Estimated Creat Clear 146.89 Estimated GFR 129 Glucose 299 H Random Insulin Pending Serum C-Peptide Pending Calcium 8.5 Insulin Antibody Pending Lab Acknowledgement Test Added Discharge Plan Discharge Disposition: Home, Self-Care Date of Admission: 03/07/25 09:14 Attending Provider on Discharge: Marcia Hussein Primary Care Provider: Chance Saxena Condition: Guarded Anticipated Discharge Date/Time: 03/08/25 17:00 Discharge Medications: Continued albuterol sulfate [Ventolin HFA] 90 mcg/actuation HFA aerosol inhaler 2 puff INHALATION Q4H PRN (Reason: wheezing) Gvoke HypoPen 1-Pack 1 mg/0.2 mL auto-injector 1 mg subcut DAILY PRN lisdexamfetamine 40 mg capsule 40 mg PO QAM Humalog KwikPen Insulin 200 unit/mL (3 mL) insulin pen 0 - 200 unit subcut DAILY Patient Comments: VIA PUMP Discharge Orders: Discharge Order (Routine); Ordered 03/08/25 Ordered By: Marcia Hussein Patient Education: Hypoglycemia in a Person with Diabetes (IP) Additional Instructions: -you need to follow-up with your primary care physician in 5 days. -You need to follow-up the hypoglycemia workup labs bowel that we did during your stay at the hospital as an outpatient and then follow up with food production supervisor to discuss the labs. -you need to eat appropriate diet and make sure that you eat while the insulin pump is active. -if you notice any symptoms of low blood sugar like weakness, feeling sweaty, or agitated, please inject glucagon immediately or if you are fully awake have a high sugar drink immediately. -do not hesitate to visit an urgent care if you are having any symptoms. Activity Level: Activity as Tolerated Discharge Diet: Diabetic Follow Up Appointments: Chance Saxena MD [Primary Care Provider, Family Practice] Forms: [employer] Info Instructions
--- NOTE | 2025-03-08 16:35 | PC.NURSE ---
Patient alert and oriented. Hypertensive. Deep breathing and shortness of breath with exertion. Large of body. Bruising on upper arms from blood draws. PICC line on left arm. Right hand has +1 pitting edema from recent infiltration. Blood drawn from the PICC has been coagulating. Patient refusing more blood draws. Only allowing PICC draws. Independent of strength. Tolerating regular diet with good appetite. Wearing and using insulin pump. Glucose checks every hour. Asymptomatic.?Wound on right lower leg. Fritch and in a state of healing. The patient reports he has had it for years. Patient left the facility?at 1600 for home independently. Discharge instructions were provided and reviewed. PICC line removed before discharge per hospital policy.?
[2025-03-09 21:20] LABS: C-Peptide, Serum or Plasma <0.1 ng/mL (0.5-3.3)
[2025-03-09 21:21] LABS: Insulin, Random 59 uIU/mL
[2025-03-11 17:29] LABS: Insulin Antibody 3.1 U/mL (0.0-0.4)
== END 2025-03-08 16:00 | disposition home or self-care (01) ==
LOC: ED 08:42 → MEDSURG 09:15
PROVIDERS: Student in an Organized Health Care Education/Training Program; Admitting Provider Family Medicine; Emergency Provider Family Medicine; PCP Family Medicine; Visit Provider Family Medicine
DX: E10.649 Type 1 diabetes mellitus with hypoglycemia without coma (principal); T85.694A Other mechanical complication of insulin pump, initial encounter; Z96.41 Presence of insulin pump (external) (internal); Z79.4 Long term (current) use of insulin; D72.829 Elevated white blood cell count, unspecified; R41.82 Altered mental status, unspecified; F12.90 Cannabis use, unspecified, uncomplicated; Z72.0 Tobacco use; E66.01 Morbid (severe) obesity due to excess calories; Z68.44 Body mass index [BMI] 60.0-69.9, adult; G47.33 Obstructive sleep apnea (adult) (pediatric); F98.8 Other specified behavioral and emotional disorders with onset usually occurring in childhood and adolescence; Z87.19 Personal history of other diseases of the digestive system; Z90.49 Acquired absence of other specified parts of digestive tract
CPT/HCPCS: 36415; 36573; 36584; 70450; 71046; 80048; 80306; 81001; 81227; 81479; 82077; 82962; 83525; 84206; 84681; 85025; 86140; 86337; 87631; 87651; 96365; 96366; 96372; 96375; 96376; 99284; 99291; A4221; A9270; C1751; G0378; J1610; J2405

== ENCOUNTER 2025-03-29 18:00 | Outpatient (CLI) | payer OTHER, SELFPAY ==
--- OUTSIDE RECORDS SUMMARY | 2025-03-03 20:24 | XMS_ITS | Encounter Summary ---
Author Organization Ruth Address [address] [place] [address] Care Team Providers Care Fashion Director Name Role Phone Chance Saxena MD Primary Care Provider [phone] Reason for Visit * Reason Comments Hypoglycemia Encounter Details Date Type Department Care Team (Late st Contact Info) Description 03/03/2025 8:24 PM CDT - 03/04/2025 2:[address] [facility] Emergency Dept [address] [place] [address] Kevan Tabor MD [facility] [address], [address] [id number] Hypoglycemia; Syncope and collapse Discharge Disposition: Home [...] on file Legal Sex Male 3:41 AM [employer] Gender Identity Not on file Sexual Orientation [...] be sent through Care Everywhere. * Hypoglycemia (Azerbaijani) * Hypoglycemia in Diabetes: General Info (Azerbaijani) documented in this encounter Medications at Time [...] dose. Patient ate 3 hot dogs, 2 monegasque drinks and a glass of milk at [...] Documentation None Medical Decision Making / Diagnosis [facility] Diagnoses: None MIPS None [facility] Rambo Rodriguez is a 29 year old [...] recommend that he follow-up closely with his inspector open die [facility] [...] he hasn't been able to go see inspector open die, last seen in October. Next in-person appointment, [...] - BEAKER POCT Final Result LABORATORY POC [facility] [address] [facility] Lab (1st floor, no room number) [place] [address]RUST * Glucose by meter (03/04/2025 12:12 AM CDT) GLUCOSE BY METER POCT 85 70 - 99 mg/dL 03/04/2025 12:19 AM CDT [facility] LABORATORY POC Comment:Dr/RN Notified Blood, Capillary BLOOD SPECIMEN / Unknown 03/04/2025 12:12 AM CDT 03/04/2025 12:19 AM CDT us Kevan KNOX - BEAKER POCT Final Result LABORATORY [facility] [address] Lab (1st floor, no room number) [address] * Glucose by meter (03/03/2025 11:18 PM CDT) GLUCOSE BY METER POCT 98 70 - 99 mg/dL 03/03/2025 11:25 PM CDT LABORATORY POC Blood, Capillary BLOOD SPECIMEN / Unknown 03/03/2025 11:18 PM CDT 03/03/2025 11:25 PM CDT us Kevan KNOX - BEAKER POCT Final Result Performing Organization Address City/[facility] [address]/ZIP Co de Phone Number LABORATORY [facility] [address] Lab (1st floor, no room number) [address] * (ABNORMAL) Glucose by meter (03/03/2025 10:17 PM CDT) GLUCOSE BY METER POCT 69(L) 70 - 99 mg/dL 03/03/2025 10:23 PM CDT LABORATORY POC Blood, Capillary BLOOD SPECIMEN / Unknown 03/03/2025 10:17 PM CDT 03/03/2025 10:23 PM CDT us Kevan KNOX - ROBINAKER POCT Final Result LABORATORY [facility] [address] Lab (1st floor, no room number) [address] [place] [address] * (ABNORMAL) Glucose by meter (03/03/2025 9:47 PM CDT) GLUCOSE BY METER POCT 59(L) 70 - 99 mg/dL 03/03/2025 9:53 PM CDT LABORATORY POC Blood, Capillary BLOOD SPECIMEN / Unknown 03/03/2025 9:47 PM CDT 03/03/2025 9:53 PM CDT us Kevan Tabor MD LAB - BEAKER POCT Final Result LABORATORY POC [facility] [address] Lab (1st floor, no room number) [place] [address], [facility] * (ABNORMAL) Basic metabolic panel (03/03/2025 8:39 [...] 03/03/2025 9:35 PM CDT LABORATORY Comment:eGFR calculated usne 2020 CKD-EPI equation. Calcium 9.0 8.8 - 10.4 mg/dL 03/03/2025 9:35 PM CDT LABORATORY Glucose 112(H) 70 - 99 mg/dL 03/03/2025 9:35 PM CDT LABORATORY Blood BLOOD SPECIMEN / Unknown Venipuncture / Unknown 03/03/2025 8:39 PM CDT 03/03/2025 8:49 PM CDT us Kevan Tabor MD LAB - BLOOD ORDERABLES Final Res ult LABORATORY [facility] [address] Lab (1st floor, no room number) [place] [id number] * Extra Purple Top Tube (03/03/2025 8:39 PM CDT) Hold Specimen [facility] 03/03/2025 10:01 PM CDT RH LABORATORY Blood BLOOD SPECIMEN / Unknown Venipuncture / Unknown 03/03/2025 8:39 PM CDT 03/03/2025 8:49 PM CDT us Kevan Tabor MD LAB - BLOOD ORDERABLES Final Res ult [facility] [address] Lab (1st floor, no room number) [address] * Extra Green Top ([place] Heparin) Tube (03/03/2025 8:39 PM CDT) Hold Specimen [facility] 03/03/2025 10:01 PM CDT RH LABORATORY Blood BLOOD SPECIMEN / Unknown Venipuncture / Unknown 03/03/2025 8:39 PM CDT 03/03/2025 8:49 PM CDT us Kevan Taobr MD LAB - BLOOD ORDERABLES Final Res ult Performing Organization Address City/[facility] [address]/ZIP Co de Phone Number [facility] [address] Lab (1st floor, no room number) [address] * Extra Red Top Tube (03/03/2025 8:39 PM CDT) Hold Specimen [facility] 03/03/2025 10:01 PM CDT RH LABORATORY Blood BLOOD SPECIMEN / Unknown Venipuncture / Unknown 03/03/2025 8:39 PM CDT 03/03/2025 8:49 PM CDT us Kevan Tabor MD LAB - BLOOD ORDERABLES Final Res ult [facility] [address] Lab (1st floor, no room number) [place] [id number] * Extra Blue Top Tube (03/03/2025 8:39 PM CDT) Hold Specimen [facility] 03/03/2025 10:01 PM CDT LABORATORY Blood BLOOD SPECIMEN / Unknown Venipuncture / Unknown 03/03/2025 8:39 PM CDT 03/03/2025 8:49 PM CDT us Kevan Tabor MD LAB - BLOOD ORDERABLES Final Res ult LABORATORY [facility] [address] [employer] Lab (1st floor, no room number) [place] [phone] [place] [address] * EKG 12-lead, tracing only (03/03/2025 8:33 PM CDT) Systolic Blood Pressure mmHg RADIOLOGY RESULTS Diastolic Blood Pressure mmHg RADIOLOGY RESULTS Ventricular Rate 80 BPM RAD IOLOGY RESULTS Atrial Rate 80 BPM RADIOLOG Y RESULTS WV Interval 124 ms RADIOLOG Y RESULTS QRS Duration 96 ms RADIOLO GY RESULTS QT 400 ms RADIOLOGY RESULTS QTc 461 ms RADIOLOGY RESULTS P [place] 43 degrees RADIOLOGY RESULTS R AXIS 26 degrees RADIOLOGY RESULTS T [place] 58 degrees RADIOLOGY RESULTS Interpretation ECG Sinus [...] by - EMERGENCY ROOM, PHYSICIAN ([id number]), editor school photograph Owen Barba ([id number]) on 03/05/2025 7:42:32 AM RADIOLOGY RESULTS 03/03/2025 [...] BEAKER POCT Final Result RH LABORATORY POC [facility] [address] [facility] Lab (1st floor, no room number) [place] [address], [facility] documented in this encounter Visit Diagnoses Diagnosis [...] mg/dL. documented in this encounter Care Teams Fashion Director Relationship Specialty Start Date End Date Chance Saxena MD [facility] [address] [place] [address] PCP - General Family Practice 08/04/17 documented as of this encounter
--- OUTSIDE RECORDS SUMMARY | 2025-03-31 07:33 | XMS_ITS | Encounter Summary ---
Author Organization [place] Address [address] [facility] [place] [address] Care Team Providers Care Menagerie Superintendent Name Role Phone Chance Saxena MD Primary Care Provider [phone] Reason for Visit * Reason Comments Hypoglycemia Encounter Details Date Type Department Care Team (Late st Contact Info) Description 03/31/2025 7:33 AM CDT - 03/31/2025 11:43 AM CDT Emergency [facility] Emergency Dept [address] [place] [address] Forrest Nova MD [facility] [address] [place], [place] [id number] Nondisplaced fracture of proximal phalanx of right great toe, initial encounter for closed fracture; Hypoglycemia Discharge Disposition: Home or Self Care Social [...] on file 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 Gender Identity Not on file Sexual Orientation Not on file documented as of this encounter Last Filed Vital Signs Vital Sign Reading Time Taken Comments Blood Pressure 136/61 03/31/2025 11:32 AM CDT Pulse 64 03/31/2025 11:32 AM CDT Temperature 36.6 C (97.9 F) 03/31/2025 7:33 AM CDT Respiratory Rate 18 03/31/2025 7:33 AM CDT Oxygen Saturation 98% 03/31/2025 11: 33 AM CDT Inhaled Oxygen Concentration - - Weight 174.9 kg (385 lb 9.4 oz) 03/31/2025 7:33 AM CDT Height - - Body Mass Index 62.23 07/12/2023 2:09 AM CDT documented in this encounter Discharge Instructions * Discharge Instructions* Forrest Nova MD - 03/31/2025 11:27 AM CDT Discharge Instructions Hypertension - High Blood Pressure During you visit to the Emergency Department, your blood pressure was higher than the recommended blood pressure. This may be related to stress, pain, medication or other temporary conditions. In these cases, your blood pressure may return to normal on its own. If you have a history of high blood pressure, you may need to have your provider adjust your medications. Sometimes, your high measurement here may indicate that you have developed high blood pressure that will stay high unless it is treated. As a general rule, high blood pressure causes problems over years rather than days, weeks, or months. So, while it is important to treat blood pressure, it is rarely important to treat blood pres sure immediately. Occasionally we will begin a medication in the Emergency Department; more often we will recommend close follow-up for medications with a primary doctor/clinic. Generally, every Emergency Department visit should have a follow-up clinic visit with either a primary or a specialty clinic/provider. Please follow-up as instructed by your emergency provider today. Return to the Emergency Department if you start to have: A severe headache. Chest pain. Shortness of breath. Weakness or numbness that affects one part of the body. Confusion. Vision changes. Significant swelling of legs and/or eyes. A reaction to any medication started in the Emergency Department. What can I do to help myself? Avoid alcohol. Take any blood pressure medicine that you are prescribed. Get a good night???s sleep. Lower your salt intake. Exercise. Lose weight. Manage stress. See your doctor regularly If blood pressure medication was started in the Emergency Department: The medicine may not have an immediate effect. The body and brain determine what blood pressure youhave. The medicine???s job is to retrain the body???s ???thermostat?? to a lower blood pressure. You will need to follow up with your provider to see how this medicine is working for you. If you were given a prescription for medicine here today, be sure to read all of the information (including the package insert) that comes with your prescription. This will include important information about the medicine, its side effects, and any warnings that you need to know about. The pharmacist who fills the prescription can provide more information and answer questions you may have about the medicine. If you have questions or concerns that the pharmacist cannot address, please call or return to the Emergency Department. Remember that you can always come back to the Emergency Department if you are not able to see your regular provider in the amount of time listed above, if you get any new symptoms, or if there is anything that worries you. * Attachments The following attachments cannot be sent through Care Everywhere. * Hypoglycemia (Comoran) * Toe Fracture (Comoran) documented in this encounter Medications at Time [...] as of this encounter ED Notes * Forrest Nova MD - 03/31/2025 7:37 AM CDT Emergency Department Note History of Present Illness Chief Complaint Hypoglycemia JESSY Rodriguez is a 29 year old male with a history of type 1 diabetes mellitus, anxiety, and depression who presents to the ED for hypoglycemia and right foot pain. The patient reports that he is here for a hypoglycemic episode. The patient was found this morning at 0500 by his sister unresponsive on the floor. The patient notes that he remembers going to bed at 2300, but that is the last thing that he can recall before waking up upon EMS arrival. After receiving IV dextrose, the patient atea PB&J sandwich, glucose tabs, and juice. The patient notes that he typically receives D10 or D50 when he has hypoglycemic episodes and even had one 72 hours ago. 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 The patient reports that his right toes and heel also hurt which is why he is presenting to the ED. He states that the hypoglycemia is been a recurrent problem over the last 6-12 months and has been working with his fine grade bulldozer operator. The patient denies bolus or insulin change. Independent Historian None Review of External Notes I reviewed ED note from 03/03/2025 which patient was seen for syncopal episode related to hypoglycemia. Glucose on presentation was 39. This improved with complex carbohydrates. Past Medical History Medical History and Problem List ADHD Anxiety Depression Diabetes mellitus type 1 Sleep apnea On dexcom Gastroparesis Celiac disease Insomnia Medications Insulin Vyvanse Albuteral Tessalon Atarax Glucagon Zepbound Wellbutrin Surgical History Appendectomy Endoscopic balloon sinuplasty acclarent ENT surgery Orchiopext Appendectomy Radio frequency ablation turbinates Turbinoplasty Physical Exam Patient Vitals for the past 24 hrs: BP Temp Temp src Pulse Resp SpO2 Weight 03/31/25 1133 -- -- -- -- -- 98 % -- 03/31/25 1132 136/61 -- -- 64 -- -- -- 03/31/25 0733 (!) 171/122 97.9 ??F (36.6 ??C) Oral 118 18 98 % (!) 174.9 kg (385 lb 9.4 oz) Physical Exam HEENT: Oropharynx is moist Eyes: Conjunctiva normal Neck: Supple, no meningismus. CV: Regular rate and rhythm. No murmurs, rubs or gallops. No unilateral leg swelling. 2+ DP pulses bilateral. PULM: Clear to auscultation bilateral. No respiratory distress. Good air exchange. No rales or wheezing. No stridor. ABD: Soft, non-tender, non-distended. No pulsatile masses. No rebound, guarding or rigidity. MSK: RLE Nontender to the Achilles tendon, Aguiar test within normal limits Focal tenderness to the base of the great toe with mild soft tissue swelling Intact flexion extension of great toe LYMPH: No cervical lymphadenopathy. NEURO: Alert & O x 3 Speech is clear with no aphasia. Strength is 5/5 and sensation intact to lower extremities Normal muscular tone, no tremor. Good muscle tone, no atrophy. Skin: Warm, dry and intact. Psych: Mood is good and affect is appropriate. Diagnostics Lab Results Labs Ordered and Resulted from Time of ED Arrival to Time of ED Departure BASIC METABOLIC PANEL - Abnormal Result Value Sodium 139 Potassium 4.6 Chloride 102 Carbon Dioxide (CO2) 27 Anion Gap 10 Urea Nitrogen 12.6 Creatinine 0.80 GFR Estimate >90 Calcium 8.9 Glucose 125 (*) GLUCOSE BY METER - Abnormal GLUCOSE BY METER POCT 174 (*) CBC WITH PLATELETS AND DIFFERENTIAL - Abnormal WBC Count 10.4 RBC Count 4.95 Hemoglobin 13.4 Hematocrit 42.9 MCV 87 MCH 27.1 MCHC 31.2 (*) RDW 14.2 Platelet Count 319 % Neutrophils 83 % Lymphocytes 11 % Monocytes 5 % Eosinophils 0 % Basophils 0 % Immature Granulocytes 1 NRBCs per 100 WBC 0 Absolute Neutrophils 8.6 (*) Absolute Lymphocytes 1.2 Absolute Monocytes 0.5 Absolute Eosinophils 0.0 Absolute Basophils 0.0 Absolute Immature Granulocytes 0.1 Absolute NRBCs 0.0 GLUCOSE BY METER - Abnormal GLUCOSE BY METER POCT 54 (*) GLUCOSE BY METER - Abnormal GLUCOSE BY METER POCT 69 (*) GLUCOSE BY METER - Normal GLUCOSE BY METER POCT 85 GLUCOSE MONITOR NURSING POCT GLUCOSE MONITOR NURSING POCT GLUCOSE MONITOR NURSING POCT Imaging Foot XR, G/E 3 views, right Final Result IMPRESSION: Acute, nondisplaced oblique fracture involving the great toe proximal phalanx extendinginto the IP joint. Hallux valgus. No significant joint space narrowing. EKG ECG taken at 0746, ECG read at 0756 Normal sinus rhythm No significant change compared as compared to prior, dated 03/03/25. Rate 88 bpm. MO interval 130 ms. QRS duration 88 ms. QT/QTc 354/428 ms. P-R-T axes 35 27 24. Independent Interpretation Right foot: Nondisplaced fracture proximal phalanx of great toe ED Course Medications Administered Medications ibuprofen (ADVIL/MOTRIN) tablet 800 mg (800 mg Oral $Given 03/31/25 0834) acetaminophen (TYLENOL) tablet 1,000 mg (1,000 mg Oral $Given 03/31/25 0834) Procedures Procedures Discussion of Management None ED Course ED Course as of 03/31/25 1218 Sun Mar 31, 2025 0737 I obtained history and examined the patient as noted above. 0911 I rechecked and updated the patient. Additional Documentation None Medical Decision Making / Diagnosis [facility] Diagnoses: None MIPS None [facility] Yessi Rodriguez is a 29 year old male with a history of insulin dependent diabetes on insulin pumppresents with primary concerns of traumatic great toe pain. This likely occurred during an episode of syncope/hypoglycemia that occurred this morning requiring EMS call with IV dextrose and oral complex carbohydrates hours before presentation as he decided not to present to ED after this EMS visit.EKG without dysrhythmia. Laboratory studies are otherwise unremarkable. Has no chest pain or shortness of breath to warrant concern for pulmonary embolism, aortic dissection, aortic aneurysm. No headache to suggest intracranial hemorrhage. No novel murmur to suggest valvular dysfunction. Unfortunately he has recurrent hypoglycemia that has been followed by his fine grade bulldozer operator. He had low-grade hypoglycemia as low as 59 which responded well to complex carbohydrates. He was offered prolonged observation but wanted to discharge home. He will place a Dexcom meter as soon as he returns home and has glucose tablets at his sister's house who he plans to discharge to today. In regards to his traumatic toe pain, he was noted to have a nondisplaced proximal phalanx fractureof the great toe. Patient placed in postop shoe. Ibuprofen and Tylenol as needed for pain. Follow-up with primary care physician and return to ED for worsening symptoms. Disposition The patient was discharged. Diagnosis ICD-10-CM 1. Nondisplaced fracture of proximal phalanx of right great toe, initial encounter for closed fracture S92.414A Ankle/Foot Bracing Supplies Order Post-op Shoe; Right 2. Hypoglycemia E16.2 Discharge Medications Discharge Medication List as of 03/31/2025 11:36 AM Scribe Disclosure: I, Deven Caal, am serving as a scribe at 8:00 AM on 03/31/2025 to document services personally performed by Forrest Nova MD based on my observations and the provider's statements to me. Forrest Nova MD 03/31/25 1221 * Dilcia Tatum, HARDIK - 03/31/2025 7:29 AM CDT Pt here with c/o R foot pain. Pt states he had a hypoglycemic episode this AM and was given glucagon by EMS. Pt states he had a syncopal episode and may have broken his R foot during the event. Hx oftype 1 DM. BG 174 documented in this encounter Plan of Treatment Not on file documented as of this encounter Procedures Procedure Name Priority Date/Time Associated Diagnosis Comments GLUCOSE BY METER STAT 03/31/2025 11:2 0 AM CDT GLUCOSE BY METER STAT 03/31/2025 10:1 7 AM CDT GLUCOSE BY METER STAT 03/31/2025 9:19 AM CDT EXTRA TUBE STAT 03/31/2025 8:21 AM CDT EXTRA RED TOP TUBE STAT 03/31/2025 8: 21 AM CDT EXTRA BLUE TOP TUBE STAT 03/31/2025 8 :21 AM CDT CBC WITH PLATELETS AND DIFFERENTIAL STAT 03/31/2025 8:21 AM CDT CBC WITH PLATELETS & DIFFERENTIAL STAT 03/31/2025 8:21 AM CDT BASIC METABOLIC PANEL STAT 03/31/2025 8:21 AM CDT XR FOOT RIGHT G/E 3 VIEWS STAT 03/31/2025 8:18 AM CDT EKG 12-LEAD, TRACING ONLY STAT 03/31/2025 7:46 AM CDT GLUCOSE BY METER STAT 03/31/2025 7:34 AM CDT documented in this encounter Results * (ABNORMAL) Glucose by meter (03/31/2025 11:20 AM CDT) GLUCOSE BY METER POCT 69(L) 70 - 99 mg/dL 03/31/2025 11:28 AM CDT LABORATORY POC Blood, Capillary BLOOD SPECIMEN / Unknown 03/31/2025 11:20 AM CDT 03/31/2025 11:28 AM CDT us Forrest KNOX - BEAKER POCT Final R esult RH LABORATORY [facility] [address] Lab (1st floor, no room number) [place] [address] * Glucose by meter (03/31/2025 10:17 AM CDT) GLUCOSE BY METER POCT 85 70 - 99 mg/dL 03/31/2025 10:24 AM CDT LABORATORY POC Blood, Capillary BLOOD SPECIMEN / Unknown 03/31/2025 10:17 AM CDT 03/31/2025 10:24 AM CDT Forrest Nova MD LAB - BEAKER POCT Final R esult LABORATORY [facility] [address] Lab (1st floor, no room number) [place] [id number] * (ABNORMAL) Glucose by meter (03/31/2025 9:19 AM CDT) GLUCOSE BY METER POCT 54(L) 70 - 99 mg/dL 03/31/2025 9:27 AM CDT LABORATORY POC Blood, Capillary BLOOD SPECIMEN / Unknown 03/31/2025 9:19 AM CDT 03/31/2025 9:27 AM CDT Forrest Nova MD LAB - BEAKER POCT Final R esult LABORATORY [facility] [address] Lab (1st floor, no room number) [place] [id number], [facility] * Extra Red Top Tube (03/31/2025 8:21 AM CDT) Hold Specimen JIC 03/31/2025 9:31 AM CDT LABORATORY Blood STRUCTURE OF LEFT UPPER LIMB / Unknown Venipuncture / Unknown 03/31/2025 8:21 AM CDT 03/31/2025 8:23 AM CDT Forrest Nova MD LAB - BLOOD ORDERABLES Fi nal Result LABORATORY [facility] Acute Care Lab [address] Lab (1st floor, no room number) [place] [phone] [place] [address] * Extra Blue Top Tube (03/31/2025 8:21 AM CDT) Hold Specimen JIC 03/31/2025 9:31 AM CDT RH LABORATORY Blood STRUCTURE OF LEFT UPPER LIMB / Unknown Venipuncture / Unknown 03/31/2025 8:21 AM CDT 03/31/2025 8:23 AM CDT Forrest Nova MD LAB - BLOOD ORDERABLES nal Result Performing Organization Address City/[facility]/ZIP Co de Phone Number LABORATORY [facility] Lab [address] Lab (1st floor, no room number) [place] [phone] * (ABNORMAL) CBC with platelets and differential (03/31/2025 8:21 AM CDT) WBC Count 10.4 4.0 - 11.0 10e3/uL 03/31/2025 8:28 AM CDT RH LABORATORY RBC Count 4.95 4.40 - 5.90 10e6/uL 03/31/2025 8:28 AM CDT RH LABORATORY Hemoglobin 13.4 13.3 - 17.7 g/dL 03/31/2025 8:28 AM CDT RH LABORATORY Hematocrit 42.9 40.0 - 53.0 % 03/31/2025 8:28 AM CDT RH LABORATORY MCV 87 78 - 100 fL 03/31/2025 8:28 AM CDT RH LABORATORY MCH 27.1 26.5 - 33.0 pg 03/31/2025 8:28 AM CDT RH LABORATORY MCHC 31.2(L) 31.5 - 36.5 g/dL 03/31/2025 8:28 AM CDT RH LABORATORY RDW 14.2 10.0 - 15.0 % 03/31/2025 8:28 AM CDT RH LABORATORY Platelet Count 319 150 - 450 10e3/uL 03/31/2025 8:28 AM CDT RH LABORATORY % Neutrophils 83 % 03/31/2025 8:28 AM CDT RH LABORATORY % Lymphocytes 11 % 03/31/2025 8:28 AM CDT RH LABORATORY % Monocytes 5 % 03/31/2025 8:28 AM CDT RH LABORATORY % Eosinophils 0 % 03/31/2025 8:28 AM CDT RH LABORATORY % Basophils 0 % 03/31/2025 8:28 AM CDT RH LABORATORY % Immature Granulocytes 1 % 03/31/2025 8:28 AM CDT RH LABORATORY NRBCs per 100 WBC 0 <1 /100 025 8:28 AM CDT RH LABORATORY Absolute Neutrophils 8.6(H) 1.6 - 8.3 10e3/uL 03/31/2025 8:28 AM CDT RH LABORATORY Absolute Lymphocytes 1.2 0.8 - 5.3 10e3/uL 03/31/2025 8:28 AM CDT RH LABORATORY Absolute Monocytes 0.5 0.0 - 1.3 10e3/uL 03/31/2025 8:28 AM CDT RH LABORATORY Absolute Eosinophils 0.0 0.0 - 0.7 10e3/uL 03/31/2025 8:28 AM CDT RH LABORATORY Absolute Basophils 0.0 0.0 - 0.2 10e3/uL 03/31/2025 8:28 AM CDT RH LABORATORY Absolute Immature Granulocytes 0.1 <=0.4 10e3/uL 03/31/2025 8:28 AM CDT RH LABORATORY Absolute NRBCs 0.0 10e3/uL 03/31/2025 8:28 AM CDT RH LABORATORY Blood BLOOD SPECIMEN / Unknown Venipuncture / Unknown 03/31/2025 8:21 AM CDT 03/31/2025 8:23 AM CDT us Forrest Nova MD LAB - BLOOD ORDERABLES Fi nal Result RH LABORATORY [facility] [address] Lab (1st floor, no room number) [place] [address], [facility] * (ABNORMAL) Basic metabolic panel (03/31/2025 8:21 AM CDT) Sodium 139 135 - 145 mmol/L 03/31/2025 8:43 AM CDT LABORATORY Potassium 4.6 3.4 - 5.3 mmol/L 03/31/2025 8:43 AM CDT LABORATORY Chloride 102 98 - 107 mmol/L 03/31/2025 8:43 AM CDT LABORATORY Carbon Dioxide (CO2) 27 22 - 29 mmol/L 03/31/2025 8:43 AM CDT LABORATORY Anion Gap 10 7 - 15 mmol/L 03/31/2025 8:43 AM CDT LABORATORY Urea Nitrogen 12.6 6.0 - 20.0 mg/dL 03/31/2025 8:43 AM CDT LABORATORY Creatinine 0.80 0.67 - 1.17 mg/dL 03/31/2025 8:43 AM CDT LABORATORY GFR Estimate >90 >60 mL/min/1.7 3m2 03/31/2025 8:43 AM CDT LABORATORY Comment:eGFR calculated 2020 CKD-EPI equation. Calcium 8.9 8.8 - 10.4 mg/dL 03/31/2025 8:43 AM CDT LABORATORY Glucose 125(H) 70 - 99 mg/dL 03/31/2025 8:43 AM CDT LABORATORY Blood BLOOD SPECIMEN / Unknown Venipuncture / Unknown 03/31/2025 8:21 AM CDT 03/31/2025 8:23 AM CDT Forrest Nova MD LAB - BLOOD ORDERABLES Fi nal Result LABORATORY [facility] [address] Lab (1st floor, no room number) [place] [address], [facility] * Foot XR, G/E 3 views, right (03/31/2025 8:18 AM CDT) Anatomical Region Laterality Modality Foot, Ankle Right Digital Radiogra phy 03/31/2025 8:18 AM CDT Impressions 03/31/2025 8:48 AM CDT IMPRESSION: Acute, nondisplaced oblique fracture involving the great toe proximal phalanx extending into the IP joint. Hallux valgus. No significant joint space narrowing. Narrative 03/31/2025 8:48 AM CDT EXAM: XR FOOT RIGHT G/E 3 VIEWS LOCATION: [facility] DATE: 03/31/2025 INDICATION: Traumatic foot pain. COMPARISON: 08/02/2022. Procedure Note Yung Méndez MD - 03/31/2025 EXAM: XR FOOT RIGHT G/E 3 VIEWS LOCATION: [facility] DATE: 03/31/2025 INDICATION: Traumatic foot pain. COMPARISON: 08/02/2022. IMPRESSION: Acute, nondisplaced oblique fracture involving the great toeproximal phalanx extending into the IP joint. Hallux valgus. No significant joint space narrowing. Forrest Nova MD IMG DIAGNOSTIC IMAGING OR DERABLES Final Result * EKG 12-lead, tracing only (03/31/2025 7:46 AM CDT) Systolic Blood Pressure mmHg RADIOLOGY RESULTS Diastolic Blood Pressure mmHg RADIOLOGY RESULTS Ventricular Rate 88 BPM RAD IOLOGY RESULTS Atrial Rate 88 BPM RADIOLOG Y RESULTS MO Interval 130 ms RADIOLOG Y RESULTS QRS Duration 88 ms RADIOLO GY RESULTS QT 354 ms RADIOLOGY RESULTS QTc 428 ms RADIOLOGY RESULTS P Whiting 35 degrees RADIOLOGY RESULTS R AXIS 27 degrees RADIOLOGY RESULTS T [place] 24 degrees RADIOLOGY RESULTS Interpretation ECG Unconfirmed report - interpretation of this ECG is computer generated - see medical record for final interpretation Sinus rhythm Normal ECG When compared with ECG of 03-Mar-2025 20:33, No significant change was found Confirmed by - EMERGENCY ROOM, PHYSICIAN ([id number]), digital editor MARLA QUILES ([id number]) on 04/01/2025 7:42:33 AM RADIOLOGY RESULTS 03/31/2025 7:46 AM CDT 04/01/2025 7:42 AM CDT Forrest Nova MD ECG ORDERABLES Edited Re sult - Final RADIOLOGY RESULTS * (ABNORMAL) Glucose by meter (03/31/2025 7:34 AM CDT) GLUCOSE BY METER POCT 174(H) 70 - 99 mg/dL 03/31/2025 7:41 AM CDT RH LABORATORY POC Blood, Capillary BLOOD SPECIMEN / Unknown 03/31/2025 7:34 AM CDT 03/31/2025 7:41 AM CDT us Forrest Nova MD LAB - BEAKER POCT Final R esult LABORATORY [facility] [address] Lab (1st floor, no room number) [place] [address], [facility] documented in this encounter Visit Diagnoses Diagnosis Nondisplaced fracture of proximal phalanx of right great toe, initial encounter for closed fracture Hypoglycemia Hypoglycemia, unspecified documented in this encounter Administered Medications Inactive Administered Medications - up to 3 most recent administrations Medication Order MAR Action Action Date Dose Rate Site acetaminophen (TYLENOL) tablet 1,000 mg 1,000 mg, Oral, ONCE, On 03/31/25 at 0830, For 1 dose, Maximum acetaminophen dose from all sources = 75 mg/kg/day not to exceed 4 gram $Given 03/31/2025 8:34 AM CDT 1,000 mg ibuprofen (ADVIL/MOTRIN) tablet 800 mg 800 mg, Oral, ONCE, On 03/31/25 at 0830, For 1 dose, Give with food. $Given 03/31/2025 8:34 AM CDT 800 mg documented in this encounter Active and Recently Administered Medications Times are shown in CDT. Scheduled Medication Order 03/29/2025 03/30/2025 03/31/2025 acetaminophen (TYLENOL) tablet 1,000 mg (COMPLETED) 1,000 mg, Oral, ONCE, On 03/31/25 at 0830, For 1 dose, Maximum acetaminophen dose from all sources = 75 mg/kg/day not to exceed 4 gram 0834 ($Given - Provi michael: Madison Lopez RN) ibuprofen (ADVIL/MOTRIN) tablet 800 mg (COMPLETED) 800 mg, Oral, ONCE, On 03/31/25 at 0830, For 1 dose, Give with food. 0834 ($Given - Provi michael: Madison Lopez RN) documented in this encounter Care Teams Menagerie Superintendent Relationship Specialty Start Date End Date Chance Saxena MD [facility] [address] [place] [address] PCP - General Family Practice 08/04/17 documented as of this encounter
--- OUTSIDE RECORDS SUMMARY | 2025-04-02 00:18 | XMS_ITS | Encounter Summary ---
Author Organization [place] Address [address] [facility] 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
--- OUTSIDE RECORDS SUMMARY | 2025-04-02 00:18 | XMS_ITS | Clinical Summary ---
Author Organization [facility] Address [address] [place] [address] Care Team Providers Care Bartender Name Role Phone Chance Saxena MD Primary Care Provider Rom Sommers MD Unavailable [phone] ShannaPatsy vazquez RN Unavailable [phone] Allergies Active Allergy Reactions Criticality Noted [...] ANXIETY 90 Tablet 10/03/20 23 Active Gum Nljakn-Txujla-JSf l-Alcohol (Mastisol Liquid Adhesive) liqdIndications:D iabetes mellitus [...] Change every 2 days 10/22/19 25 Active DexKidzillions G7 Sensor for continuous blood glucose monitor (CGM)Indications: Diabetes mellitus type 1, controlled, without complications (HC) To be used to read blood sugars, follow car rental agency manager directions. 9 Each 3 10/31/19 25 Active [...] 6 mL 3 11/22/19 25 Active lisdexamfetamine (Vyvanse) 40 mg capsuleIndication [...] daily 90 mL 3 02/29/20 25 Active lisdexamfetamine 40 mg capsuleIndication s:Attention deficit hyperactivity disorder (ADHD), predominantly inattentive type Take 1 Capsule (40 mg) by mouth once daily. 30 Capsule 02/20/20 25 025 Active Problems Problem Noted Date Diagnosed Date [...] Encounters Date Type Department Care Team Description 03/08/2025 Orders Only [facility] Scanner 1 scan: (1-Ord) [place], XR CHEST PICC PLACEMENT CONF, 03/08/2025 03/07/2025 Orders Only [facility] Scanner 1 scan: (1-Ord) [facility], CHEST 2V, 03/07/2025 03/07/2025 Orders Only [facility] Scanner 1 scan: (1-Ord) [facility], HEAD/BRAIN WO CON, 03/07/2025 02/27/2025 Telephone Hernandez, Yousif, [employer] [employer] [facility] [employer] [address] [place] [address] Schempf, Rom Ruelas MD Prior Authorization (insulin lispro, U-200, (HumaLOG KwikPen Insulin) 200 unit/mL (3 mL) pen QTY LMT (NOT NEEDED)) 02/27/2025 Telephone Yousif Hernandez, [facility] [address] [place] [address] Rom Sommers MD Medication Management (Humalog) 02/18/2025 Refill [facility] [[email or web address] [address] [place] [address] Chance Saxena MD Refill Request (lisdexamfetamine (VYVANSE) [...] on file Legal Sex Male 7:55 AM MANAGER DOMESTIC Gender Identity Male 08/11/2020 2:27 PM MANAGER DOMESTIC Sexual Orientation Bisexual 08/11/2020 2: 27 PM MANAGER DOMESTIC 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 Not on file Not on file Obstetrics History Last Filed Vital Signs Vital Sign Reading Time Taken Comments Blood Pressure 122/74 11/01/2024 8:06 AM MANAGER DOMESTIC Pulse 86 11/01/2024 8:06 AM MANAGER DOMESTIC Temperature 36.8 C (98.2 F) 09/09/2023 5:13 PM MANAGER DOMESTIC Respiratory Rate 20 09/09/2023 6:30 PM MANAGER DOMESTIC Oxygen Saturation 94% 09/09/2023 6:30 PM MANAGER DOMESTIC Inhaled Oxygen Concentration - - Weight 180.1 kg (397 lb) 11/01/2024 8:06 AM MANAGER DOMESTIC Height 170.2 cm (5' 7) 09/09/2023 10:41 AM MANAGER DOMESTIC Body Mass Index 62.18 09/09/2023 10:41 AM MANAGER DOMESTIC Plan of Treatment Upcoming Encounters Date Type Department Care Team (Late st Contact Info) Description 04/08/2025 9:00 AM CDT Office Visit [facility] [[email or web address] [address] [place] [address] [place] [address] [place] [address] 04/25/2025 9:20 AM CDT Office Visit [facility] [address] [place] [address] Zeenat Blas, LYNN [address] [place], [place] [address] 05/02/2025 8:00 AM CDT Office Visit Yousif Hernandez, [facility] [address] [place] [address] Rom Sommers MD [address] [place], [place] [address] Health Maintenance Due Date Last Done Comments HIV for age 15-65 2011 Hepatitis C screening for ag e 18-79 2014 Hepatitis B series for 19+ ( 1 of 3 - 19+ 3-dose series) 2015 Tetanus booster 03/26/2019 03/26/2009 COVID-19 vaccine series ( season) 2024 09/15/2021, 02/19/2021, 01/20/2021 Depression screening [...] Completed 03/26/2009 Medical Devices Implanted Type Area Nursing Department Chairperson Device Identifier Shelf Expiration Date Model / Serial / Lot Mesh Ventral [address]in Ventral[address] [facility] - [id number] Implanted:Qty: 1 on 09/09/2023 by Duran Triana MD at [facility] N/A: Abdomen [employer] 03/06/2025 [id number] / / [id number] Procedures Procedure Name Priority Date/Time Associated Diagnosis Comments SCAN-RADIOLOGY REPORT 03/08/2025 12:00 AM CDT SCAN-RADIOLOGY REPORT 03/07/2025 12:00 AM CDT SCAN-CT INTERPRETATION 12:00 AM CDT from Last 3 Months Results * SCAN-RADIOLOGY REPORT (03/08/2025 12:00 AM CDT) Only the most recent of2 resultswithin the time period is included. Anatomical Region Laterality Modality Other us Scanner OTHER Final Result * SCAN-CT INTERPRETATION (03/07/2025 12:00 AM CDT) Anatomical Region Laterality Modality Other us Scanner OTHER Final Result from Last [address] [facility] Advance Directives * Full Code (Latest Code [...] Preferences, Provider to review later Care Teams Bartender Relationship Specialty [place] [address] [place] [address] PCP - General Family Practice 03/22/22 Rom Sommers MD [address] [place] [id number] Endocrinology 02/06/24 Patsy Otero, RN [address] [place] [address] Waxer Tender Registered Nurse 10/22/24
--- OUTSIDE RECORDS SUMMARY | 2025-04-02 00:18 | XMS_ITS | Encounter Summary ---
Author Organization [facility] Address [address] [facility] [place] [address] Care Team Providers Care Gate Tender Name Role Phone Chance Saxena MD Primary Care Provider [phone] Encounter Details Date Type Department Care Team [...] on file Legal Sex Male 3:41 AM ARMATURE WINDER HELPER REPAIR Gender Identity Not on file Sexual Orientation Not on file documented as of this encounter Plan of Treatment Not on file documented as of this encounter Visit Diagnoses Not on filedocumented in this encounter Care Teams Gate Tender Relationship Specialty Start Date End Date Chance Saxena MD [facility] [address] [place] [address] PCP - General Family Practice 08/04/17 documented as of this encounter
--- OUTSIDE RECORDS SUMMARY | 2025-04-02 00:18 | XMS_ITS | Clinical Summary ---
Author Organization [place] Address [address] [facility] [place] [address] Care Team Providers Care Radio Dispatcher Name Role Phone Chance Saxena MD Primary Care Provider [phone] Allergies Active Allergy Reactions Criticality Noted Date [...] Encounters Date Type Department Care Team Description 03/31/2025 7:33 AM CDT - 03/31/2025 11:[address] [facility] Emergency [facility] [address] [facility] [place] [address] Forrest Nova MD Nondisplaced fracture of proximal phalanx of right great toe, initial encounter for closed fracture; Hypoglycemia Discharge Disposition: Home or Self Care 03/31/2025 Travel 03/03/2025 8:24 PM CDT - 03/04/2025 2:[address] [facility] Emergency Dept [address] [place] [address] Kevan Tabor MD Hypoglycemia; Syncope and collapse Discharge Disposition: Home or Self Care 03/03/2025 Travel from Last 3 Months Immunizations Immunization Administration Dates Next Due Influenza Vaccine >6 months,madina, PF 10/06/2016 Family History Medical History Relation Comments C.A.D. Father MA Coronary Artery Disease Father Depression Father dad's side of e family Hypertension Father Breast Cancer Maternal [...] on file Legal Sex Male 3:41 AM FRUIT VENDOR Gender Identity Not on file Sexual Orientation [...] 9.4 oz) 03/31/2025 7:33 AM CDT Height 167.6 cm (5' 6) 07/12/2023 2:09 AM CDT Body Mass Index 62.23 07/12/2023 2:09 AM CDT Plan of Treatment [...] 10/08/2021, 2019, 08/10/2017, Additional history exists BMP 03/31/2026 03/31/2025, /02/2025, 05/30/2024, Additional history exists PNEUMOCOCCAL VACCINE: PEDIATRICS (0 [...] 10/23/2011, 12/13/2009 Medical Devices Implanted Type Area Manager Employee Relations Device Identifier Shelf Expiration Date Model / Serial / Lot Staple Reload [place] 45mm 3.5mm White - [id number] Implanted:Qty : 1 on 12/16/2016 Metallic Hardware/Anc hor N/A: Abdomen [employer] 10/09/2020 [id number] / / [id number] Procedures Procedure Name Priority Date/Time Associated Diagnosis Comments GLUCOSE BY METER STAT 03/31/2025 11:2 0 AM CDT GLUCOSE BY METER STAT 03/31/2025 10:1 7 AM CDT GLUCOSE BY METER STAT 03/31/2025 9:19 AM CDT CBC WITH PLATELETS & DIFFERENTIAL STAT 03/31/2025 8:21 AM CDT EXTRA RED TOP TUBE STAT 03/31/2025 8: 21 AM CDT EXTRA BLUE TOP TUBE STAT 03/31/2025 8 :21 AM CDT CBC WITH PLATELETS AND DIFFERENTIAL STAT 03/31/2025 8:21 AM CDT EXTRA TUBE STAT 03/31/2025 8:21 AM CDT BASIC METABOLIC PANEL STAT 03/31/2025 8:21 AM CDT XR FOOT RIGHT G/E 3 VIEWS STAT 03/31/2025 8:18 AM CDT EKG 12-LEAD, TRACING ONLY STAT 03/31/2025 7:46 AM CDT GLUCOSE BY METER STAT 03/31/2025 7:34 AM CDT GLUCOSE BY METER STAT 03/04/2025 1:44 AM [...] hallucinations LIPID PROFILE Timed 10/23/2011 8:51 AM FRUIT VENDOR from Last 3 Months or Most Recently Relevant to Health Maintenance Results * (ABNORMAL) Glucose by meter (03/31/2025 11:20 AM CDT) Only the most recent of10 resultswithin the time period is included. GLUCOSE BY METER POCT 69(L) 70 - 99 mg/dL 03/31/2025 11:28 AM CDT LABORATORY POC Blood, Capillary BLOOD SPECIMEN / Unknown 03/31/2025 11:20 AM CDT 03/31/2025 11:28 AM CDT Forrest Nova MD LAB - BEAKER POCT Final R esult LABORATORY [facility] [address] Lab (1st floor, no room number) [place] [address] * Extra Red Top Tube (03/31/2025 8:21 AM CDT) Only the most recent of2 resultswithin the time period is included. Hold Specimen [facility] 03/31/2025 9:31 AM CDT LABORATORY Blood STRUCTURE OF LEFT UPPER LIMB / Unknown Venipuncture / Unknown 03/31/2025 8:21 AM CDT 03/31/2025 8:23 AM CDT us Forrest Nova MD LAB - BLOOD ORDERABLES Fi nal Result [facility] Lab [address] Lab (1st floor, no room number) [place] [address] * Extra Blue Top Tube (03/31/2025 8:21 AM CDT) Only the most recent of2 resultswithin the time period is included. Hold Specimen [facility] 03/31/2025 9:31 AM CDT LABORATORY Blood STRUCTURE OF LEFT UPPER LIMB / Unknown Venipuncture / Unknown 03/31/2025 8:21 AM CDT 03/31/2025 8:23 AM CDT us Forrest Nova MD LAB - BLOOD ORDERABLES Fi nal Result RH LABORATORY [facility] Lab [address] Lab (1st floor, no room number) [place] [address], [facility] * (ABNORMAL) CBC with platelets and differential [...] - BLOOD ORDERABLES Fi nal Result LABORATORY [facility] Lab [address] [facility] Lab (1st floor, no room number) [place] [address] * (ABNORMAL) Basic metabolic panel (03/31/2025 8:21 AM CDT) Only the most recent of2 resultswithin the time period is included. Sodium 139 135 - 145 mmol/L 03/31/2025 [...] 03/31/2025 8:43 AM CDT LABORATORY Comment:eGFR calculated usin 2020 CKD-EPI equation. Calcium 8.9 8.8 - 10.4 mg/dL 03/31/2025 8:43 AM CDT LABORATORY Glucose 125(H) 70 - 99 mg/dL 03/31/2025 8:43 AM CDT LABORATORY Blood BLOOD SPECIMEN / Unknown Venipuncture / Unknown 03/31/2025 8:21 AM CDT 03/31/2025 8:23 AM CDT Forrest Nova MD LAB - BLOOD ORDERABLES Fi nal Result LABORATORY [facility] Lab [address] [facility] Lab (1st floor, no room number) [place] [address] * Foot XR, G/E 3 views, right [...] XR FOOT RIGHT G/E 3 VIEWS LOCATION: [facility] DATE: 03/31/2025 INDICATION: Traumatic foot pain. COMPARISON: 08/02/2022. Procedure Note Yung Méndez MD - 03/31/2025 EXAM: XR FOOT RIGHT G/E 3 VIEWS LOCATION: [facility] DATE: 03/31/2025 INDICATION: Traumatic foot pain. COMPARISON: 08/02/2022. IMPRESSION: Acute, nondisplaced oblique fracture involving the great toeproximal phalanx extending into the IP joint. Hallux valgus. No significant joint space narrowing. Forrest Nova MD IMG DIAGNOSTIC IMAGING OR DERABLES Final Result * EKG 12-lead, tracing only (03/31/2025 7:46 AM CDT) Only the most recent of2 resultswithin the time period is included. Systolic Blood Pressure mmHg RADIOLOGY RESULTS Diastolic Blood Pressure mmHg RADIOLOGY RESULTS Ventricular Rate 88 BPM RAD IOLOGY RESULTS Atrial Rate 88 BPM RADIOLOG Y RESULTS [place] Interval 130 ms RADIOLOG Y RESULTS QRS Duration 88 ms RADIOLO GY RESULTS QT 354 ms RADIOLOGY RESULTS QTc 428 ms RADIOLOGY RESULTS P [place] 35 degrees RADIOLOGY RESULTS R AXIS 27 degrees RADIOLOGY RESULTS T [place] 24 degrees RADIOLOGY RESULTS Interpretation ECG Unconfirmed report - interpretation of this ECG is computer generated - see medical record for final interpretation Sinus rhythm Normal ECG When compared with ECG of 03-Mar-2025 20:33, No significant change was found Confirmed by - EMERGENCY ROOM, PHYSICIAN ([id number]), non linear editor MARLA QUILES ([id number]) on 04/01/2025 7:42:33 AM RADIOLOGY RESULTS 03/31/2025 7:46 AM CDT 04/01/2025 7:42 AM CDT Forrest Nova MD ECG ORDERABLES Edited Re sult - Final RADIOLOGY RESULTS * Extra Purple Top Tube (03/03/2025 8:39 PM CDT) Hold Specimen [facility] 03/03/2025 10:01 PM CDT LABORATORY Blood BLOOD SPECIMEN / Unknown Venipuncture / Unknown 03/03/2025 8:39 PM CDT 03/03/2025 8:49 PM CDT Kevan Tabor MD LAB - BLOOD ORDERABLES Final Res ult LABORATORY [facility] Lab [address] Lab (1st floor, no room number) [place] [address] * Extra Green Top ([place] Heparin) Tube (03/03/2025 8:39 PM CDT) Hold Specimen [facility] 03/03/2025 10:01 PM CDT LABORATORY Blood BLOOD SPECIMEN / Unknown Venipuncture / Unknown 03/03/2025 8:39 PM CDT 03/03/2025 8:49 PM CDT us Kevan Tabor MD LAB - BLOOD ORDERABLES Final Res ult LABORATORY [facility] Lab [address] [facility] Lab (1st floor, no room number) [place] [address] * (ABNORMAL) Hemoglobin A1c (03/22/2021 1:44 AM CDT) Hemoglobin A1C 6.1(H) 0 - 5.6 % 03/22/2021 2:26 AM CDT [facility] Comment: Normal <5.7% Prediabetes 5.7-6.4% Diabetes 6.5% or higher - adopted from ADA consensus guidelines. Blood 03/22/2021 1:44 AM CDT 03/22/2021 1:45 AM CDT us Andrés Escoto MD LAB - BLOOD ORDERABLES Final Result [facility] [address] [place], [place] [address] [phone] * TSH with free T4 reflex (03/21/2019 7:04 AM CDT) TSH 1.51 0.40 - 4.00 mU/L 03/21/2019 7:48 AM CDT [facility] Blood specimen (specimen) 03/21/2019 7:04 AM CDT 03/21/2019 7:05 AM CDT us Simi Lynn APRN, CNP LAB - BLOOD ORDER [place] Final Result Performing Organization Address City/[facility]/ZIP Co de Phone Number [facility] [address] [place] [address] * (ABNORMAL) Lipid profile (10/23/2011 8:51 AM FRUIT VENDOR) Cholesterol 186 0 - 200 mg/dL [facility] Blood specimen (specimen) 10/23/2011 8:51 AM FRUIT VENDOR 10/23/2011 9:02 AM FRUIT VENDOR us Donna Hill MD LAB - BLOOD ORDERABLES Final Result Performing Organization Address City/[facility]/ZIP Co de Phone Number [address] [address], [facility] from Last 3 Months or Most Recently Relevant to Health Maintenance Insurance [facility] [employer] Advance Directives For more information, please contact: [phone] * Full Code (Latest Code Status on [...] with patie nt/legal decision maker Care Teams Radio Dispatcher Relationship Specialty Start Date End Date Chance Saxena MD [facility] [id number] [place] [address] PCP - General Family Practice 08/04/17
--- OUTSIDE RECORDS SUMMARY | 2025-04-02 00:18 | XMS_ITS | Encounter Summary ---
Author Organization [place] Address [address] [place] [address] Care Team Providers Care Group Insurance Special Agent Name Role Phone Chance Saxena MD Primary Care Provider [phone] Reason for Visit * Reason Onset Date Comments MH/CD Inpatient 03/20/2019 Encounter Details Date Type Department Care Team ([facility] Contact Info) Description 03/20/2019 Telephone [facility] Behavioral Health Intake [address] [place] [phone] Generic, Behavioral Intake, MH/CD Inpatient Social History Tobacco Use Types Packs/Day Years Used Date Smoking Tobacco: Some Days Cigarettes Smokeless Tobacco: Never Comments:About 6 cigarettes a week Alcohol Use Standard Drinks/Week Comments Yes 0 (1 standard drink = 0.6 oz pur e alcohol) vodka- occ Sex and Gender Information Value Date Recorded Sex Assigned at Not on file Legal Sex Male 3:41 AM STABLE HAND Gender Identity Not on file Sexual Orientation [...] will need regular insulin around breakfast time. scallop cutter provider requesting ketoacidosis labs and wants blood sugar to be rechecked. Needs to be under 300 before accepted to the unit. ED notified at 0108. Glucose @ [phone] Creatinine 0.57 R: scallop cutter notified of lab results and accepts. 4A/Ricky. [...] documented as of this encounter Care Teams Group Insurance Special Agent Relationship Specialty Start Date End Date Chance Saxena MD [facility] [address] [place] [address] PCP - General Family Practice 08/04/17 documented as of this encounter
--- OUTSIDE RECORDS SUMMARY | 2025-04-02 00:18 | XMS_ITS | Encounter Summary ---
Author Organization [facility] Address [address], [place] [address] Care Team Providers Care Co Founder & Ceo Name Role Phone Yung Rodriguez MD Primary Care Provider [phone]- [phone] Encounter Details Date Type Department Care Team [...] on filedocumented in this encounter Care Teams Co Founder & Ceo Relationship Specialty Start Date End Date Yung Rodriguez MD [facility] [address] [place] [address] PCP - General Pediatric Medicine 08/19/14 documented as of this encounter
--- OUTSIDE RECORDS SUMMARY | 2025-04-02 00:19 | XMS_ITS | Clinical Summary ---
Author Organization [facility] Address [address], [place] [address] Care Team Providers Care Document Design Specialist Name Role Phone Yung Rodriguez MD Primary Care Provider +1- [phone] Source Comments You are receiving this document as you are listed as the primary care provider,follow-up provider, or the patient has been referred to you for consultation.This is in compliance with the Medicare and[facility] Cent[facility] EHR Incentive Program,which states Providers who transition their patient to another setting of careor provider of care or refers their patient to another provider of care shouldprovide summary care record for each transition of care or referral. [facility] Allergies Active Allergy Reactions Criticality Noted Date [...] 36.7 C (98 F) 08/19/2014 4:40 PM FACILITY SERVICE MANAGER Respiratory Rate 16 08/19/2014 4:40 PM FACILITY SERVICE MANAGER Oxygen Saturation 98% 11/09/2016 3:05 PM FACILITY SERVICE MANAGER Inhaled Oxygen Concentration - - Weight 129.7 [...] - 03/29/2018 11:43 AM CDT Performed at [facility], [address] [place] [address] CLIA number [id number] Brii Nguyen PA-C LAB_1 Final Resu lt PN SOFT [address] [place] [address] * (ABNORMAL) Lipid Panel and [...] - 03/29/2018 11:11 AM CDT Performed at [facility], [address] [place] [address] CLIA number [id number] Brii Nguyen PA-C LAB_1 Final Resu lt Performing Organization Address [facility] de Phone Number PN SOFT [address] [place] [address] * (ABNORMAL) Creatinine / GFR (03/29/2018 10:31 [...] - 03/29/2018 11:11 AM CDT Performed at [facility], [address] [place] [address] CLIA number [id number] us Brii Nguyen PA-C LAB_1 Final Resu lt Performing Organization Address [facility] de Phone Number PN SOFT [address] [place] [address] * (ABNORMAL) POCT glycosylated hemoglobin (Hb A1C) (03/29/2018 9:47 AM CDT) Hemoglobin A1C, POC 9.1(A) 4 - 5.6 % PN POCT Cartridge Lot# [id number] PN POCT Blood specimen (specimen) 03/29/2018 9:47 AM CDT Brii Nguyen PA-C PN POINT OF CARE TESTS Fin al Result PN POCT from Last 3 Months or Most Recently Relevant to Health Maintenance Insurance [facility] Care Teams Document Design Specialist Relationship Specialty Start Date End Date Yung Rodriguez MD [facility] [address] [facility] [address] [place] [address] PCP - General Pediatric Medicine 08/19/14
--- OUTSIDE RECORDS SUMMARY | 2025-04-02 00:19 | XMS_ITS | Encounter Summary ---
Author Organization [place] Address [address] [facility] [place] [address] Care Team Providers Care Claim Attorney Name Role Phone Yung Rodriguez MD Primary Care Provider Shanti Jimnees Primary Care Provider Chance Johnson MD Primary Care Provider [phone] [phone] Encounter Details Date Type Department Care Team (Late st Contact Info) Description 10/05/2011 Office Visit [facility] Reji Fam, DO [facility] [address] [place] [address] [address] Social History Tobacco Use Types Packs/Day Years Used Date Smoking Tobacco: Never Alcohol Use Standard Drinks/Week Comments No 0 (1 standard drink = 0.6 oz pur e alcohol) Sex and Gender Information Value Date Recorded Sex Assigned at Not on file Legal Sex Male 3: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 Struggles also with IDDM which has not been stable. Patient continuing to struggle with mood and behavior. DIagnoses: [place] I: MDD, recurrent, severe without psychosis. Generalized Anxiety Disorder. ADHD, combined type. [place] II: Deferred. [place] III: IDDM [place] IV: moderate psychosocial stressors [place] V: Global Assessment of Functionin Plan: Reviewed [...] previous visit (from the past 24 hour(s)). FOREMAN documented in this encounter Plan of Treatment Not on file documented as of this encounter Visit Diagnoses Not on filedocumented in this encounter Additional Health Concerns Infection Onset Date Last Indicated Resolved Time Rule Out COVID-19 07/15/2021 07/15/2021 07/15/2021 12:51 PM CDT Rule Out COVID-19 02/14/2022 02/14/2022 02/14/2022 11:02 PM CDT documented as of this encounter Care Teams Claim Attorney Relationship Specialty Start Date End Date Yung Rodriguez MD PCP - General Pediatrics 07/31/11 10/03/16 Shanti Magdaleno PCP - General 10/04/16 08/03/17 Chance Saxena MD [facility] [address] [place] [address] PCP - General Family Practice 08/04/17 documented as of this encounter
== END 2025-03-29 18:01 | disposition home or self-care (01) ==
LOC: AMB 04-01 10:00
PROVIDERS: PCP Family Medicine; Visit Provider Family Medicine
DX: R55 Syncope and collapse (principal)
CPT/HCPCS: A0998